=== PATIENT | male | born 1965 | race Asian ===

== ENCOUNTER 2017-05-22 22:28 | Emergency (ER) | payer OTHER ==
[2017-05-23 00:39] LABS: ABS Basophils 0 10^3/ul (0-0.2); ABS Eosinophils 0 10^3/ul (0-0.6); ABS Lymphocytes 0.7 10^3/ul (1.0-4.8); ABS Monocytes 0.1 10^3/ul (0-0.8); ABS Neutrophils 7.5 10^3/ul (1.5-7.7); ABS Nucleated RBC 0 10^3/ul; Eosinophil % 0 % (0-6); Hematocrit 38 % (42-52); Lymphocyte % 8.7 % (25-47); Mean Corpuscular HGB Conc 34 g/dl (31-36); Mean Corpuscular Hemoglobin 30 pg (27-31); Mean Corpuscular Volume 89 fL (80-94); Mean Platelet Volume 10 um3 (7.4-10.4); Nucleated Red Blood Cells % 0.1; Platelet Count 291 10^3/ul (150-450); Red Blood Count 4.29 10^6/ul (4.0-5.4); Red Cell Distribution Width 14 % (10.5-15); White Blood Count 8.4 10^3/ul (3.5-10.8)
[2017-05-23 00:45] LABS: EGFR Non-African American 72.7 (>60)
[2017-05-23] MEDS: Metoclopramide IV* 5 MG/ML 2 ML VIAL IV SLOW PU ONE (00:50)
[2017-05-23] MEDS: diPHENhydraMINE IV* 50 MG/ML 1 ml VIAL (BENADRYL) SLOW PUSH ONE (00:50)
[2017-05-23] MEDS: NS 0.9% 1000 ML* 2,000 ML IV ONE (00:50)
[2017-05-23] MEDS: Acetaminophen TAB* 325 MG PO ONE (01:20)
[2017-05-23] MEDS: Ondansetron INJ* 2 MG/ML VIAL IV ONE (02:45)
[2017-05-23 04:33] VITALS: BP 127/75
--- NOTE | 2017-05-23 04:47 | ED ---
Benjy Leiva Stephanie, scribed for Karlie Bunn MD on 05/23/17 at 0014 . Abdominal Pain/Male - HPI Summary HPI Summary: The pt is a 51 y/o M presenting to the ED with abd pain that began at 13:00 today. Symptoms include N/V/D, RUBIO and chills. The pt denies fever. - History of Current Complaint Chief Complaint: EDNauseaVomitDiarrh Stated Complaint: FLU LIKE SYMPTOMS Time Seen by Provider: 05/22/17 23:51 Hx Obtained From: Patient Onset/Duration: Gradual Onset, Lasting Hours - 11, Still Present Timing: Constant Severity Currently: Severe Pain Intensity: 8 Pain Scale Used: 0-10 Numeric Location: Diffuse Radiates: No Aggravating Factor(s): Nothing Alleviating Factor(s): Nothing Associated Signs And Symptoms: Negative: Fever, Nausea, Vomiting - Allergies/Home Medications Allergies/Adverse Reactions: Allergies Allergy/AdvReac Type Severity Reaction Status Date / Time No Known Allergies Allergy Verified 05/22/17 22:36 PMH/Surg Hx/FS Hx/Imm Hx Endocrine/Hematology History: Reports: Hx Anemia Denies: Hx Diabetes Cardiovascular History: Denies: Hx Congestive Heart Failure GI History: Reports: Hx Gall Bladder Disease, Hx Gastroesophageal Reflux Disease , Other GI Disorders - pancreatitis Musculoskeletal History: Reports: Hx Back Problems - chronic low back pain, Hx Orthopedic Injury - left shoulder injury Psychiatric History: Reports: Hx Depression - Surgical History Surgery Procedure, Year, and Place: None - Immunization History Date of Tetanus Vaccine: 09/15/2013 Infectious Disease History: No Infectious Disease History: Denies: Traveled Outside the [place] in Last 30 Days - Family History Known Family History: Positive: Unknown - Pt denies - Social History Occupation: Unemployed Lives: With Family Alcohol Use: Weekly Substance Use Type: Reports: Prescribed Substance Use Comment - Amount & Last Used: oxycontin 10mg bid Smoking Status (MU): Never Smoked Tobacco Review of Systems Positive: Chills Positive: Abdominal Pain, Vomiting, Diarrhea, Nausea Positive: Headache All Other Systems Reviewed And Are Negative: Yes Physical Exam - Summary Physical Exam Summary: VITAL SIGNS: Reviewed. GENERAL: Patient is a well-developed and nourished MALE who is lying comfortable in the stretcher. Patient is not in any acute respiratory distress. HEAD AND FACE: No signs of trauma. No ecchymosis, hematomas or skull depressions. No sinus tenderness. EYES: PERRLA, EOMI x 2, No injected conjunctiva, no nystagmus. EARS: Hearing grossly intact. Ear canals and tympanic membranes are within normal limits. MOUTH: Oropharynx within normal limits. NECK: Supple, trachea is midline, no adenopathy, no JVD, no carotid bruit, no c- spine tenderness, neck with full ROM. CHEST: Symmetric, no tenderness at palpation LUNGS: Clear to auscultation bilaterally. No wheezing or crackles. CVS: Regular rate and rhythm, S1 and S2 present, no murmurs or gallops appreciated. ABDOMEN: Soft, non-tender. No signs of distention. No rebound no guarding, and no masses palpated. Bowel sounds are normal. EXTREMITIES: FROM in all major joints, no edema, no cyanosis or clubbing. NEURO: Alert and oriented x 3. No acute neurological deficits. Speech is normal and follows commands. SKIN: Dry and warm Triage Information Reviewed: Yes Vital Signs On Initial Exam: Initial Vitals Temp Pulse Resp BP Pulse Ox 98.2 F 125 20 117/61 97 05/22/17 22:33 05/22/17 22:33 05/22/17 22:33 05/22/17 22:33 05/22/17 22:33 Vital Signs Reviewed: Yes Diagnostics - Vital Signs Vital Signs Temp Pulse Resp BP Pulse Ox 05/22/17 22:33 98.2 F 125 20 117/61 97 - Laboratory Lab Results: Lab Results 05/22/17 Range/Units 23:15 Influenza A (Rapid) Negative (Negative) Influenza B (Rapid) Negative (Negative) Result Diagrams: 05/23/17 00:20 05/23/17 00:20 Lab Statement: Any lab studies that have been ordered have been reviewed, and results considered in the medical decision making process. Abdominal Pain Fem Course/Dx - Course Course Of Treatment: he pt is a 51 y/o M presenting to the ED with abd pain that began at 13:00 today. Symptoms include N/V/D, RUBIO and chills. The pt denies fever. The pt has gastroenteritis and will be discharged home. - Diagnoses Provider Diagnoses: Gastroenteritis Discharge - Discharge Plan Condition: Stable Disposition: HOME Prescriptions: Ondansetron [Zofran Odt] 8 mg PO Q6HR PRN #20 tab.rapdis PRN Reason: Nausea/Vomiting Patient Education Materials: Gastroenteritis (ED) Referrals: Peter Lee MD [Primary Care Provider] - 3 Days Additional Instructions: RETURN TO EMERGENCY DEPARTMENT FOR ANY NEW OR WORSENING SYMPTOMS The documentation as recorded by the Benjy hu Stephanie accurately reflects the service I personally performed and the decisions made by me, Karlie Bunn MD.
== END 2017-05-23 04:33 | disposition home or self-care (01) ==
LOC: ED 22:28
DX: K52.9 Noninfective gastroenteritis and colitis, unspecified (principal)
CPT/HCPCS: 36415; 80053; 83735; 85025; 86140; 87502; 96361; 96374; 96375; 99283; A9270-GY; J1200; J2405; J2765

== ENCOUNTER 2017-10-04 14:57 | Emergency (ER) | payer OTHER ==
[2017-10-04] MEDS ORDERED: Pantoprazole IV* 40 MG IV ONE (15:13)
[2017-10-04] MEDS ORDERED: NS 0.9% 1000 ML* 1,000 ML IV ONE (15:13)
[2017-10-04] MEDS ORDERED: Ondansetron INJ* 2 MG/ML VIAL IV ONE ×2 (15:13→19:46)
[2017-10-04 16:10] LABS: ABS Basophils 0 10^3/ul (0-0.2); ABS Eosinophils 0 10^3/ul (0-0.6); ABS Lymphocytes 0.8 10^3/ul (1.0-4.8); ABS Monocytes 0.2 10^3/ul (0-0.8); ABS Neutrophils 6.5 10^3/ul (1.5-7.7); ABS Nucleated RBC 0 10^3/ul; Eosinophil % 0.1 % (0-6); Hematocrit 38 % (42-52); Hemoglobin 12.6 g/dl (14.0-18.0); Lymphocyte % 11.1 % (25-47); Mean Corpuscular HGB Conc 34 g/dl (31-36); Mean Corpuscular Hemoglobin 30 pg (27-31); Mean Corpuscular Volume 89 fL (80-94); Mean Platelet Volume 9.6 um3 (7.4-10.4); Nucleated Red Blood Cells % 0.1; Platelet Count 261 10^3/ul (150-450); Red Cell Distribution Width 15 % (10.5-15); White Blood Count 7.5 10^3/ul (3.5-10.8)
[2017-10-04 16:19] LABS: EGFR Non-African American 73.2 (>60)
[2017-10-04] MEDS ORDERED: Ketorolac INJ* 30 MG/ML 1 ML VIAL IV PUSH ONE (16:39)
[2017-10-04 16:47] LABS: Urine Appearance Cloudy; Urine Blood Negative (Negative); Urine Color Yellow; Urine Ketones 1+ (Negative); Urine Protein 2+(100 mg/dL) (Negative); Urine Specific Gravity 1.029 (1.010-1.030); Urine Urobilinogen Negative (Negative)
[2017-10-04] MEDS ORDERED: Metoclopramide IV* 5 MG/ML 2 ML VIAL IV ONE (17:34)
[2017-10-04] MEDS ORDERED: LORazepam INJ* 2 MG/ML 1 ML VIAL IV ONE (17:34)
[2017-10-04] MEDS ORDERED: HYDROmorphone INJ* 2 MG/ML CARPUJECT SYRINGE IV SLOW PU ONE (19:45)
--- NOTE | 2017-10-04 20:19 | RAD ---
Indication: Epigastric pain. Real-time sonography of the right upper quadrant was. The liver measures 16.0 cm in length. No focal lesions or intrahepatic ductal dilatation is noted. The gallbladder demonstrates no gallstones, pericholecystic fluid or wall thickening. The common duct is not identified. The right kidney measures 11.7 x 6.3 x 5.6 cm with no hydronephrosis. The pancreas is obscured. IMPRESSION: No cholelithiasis. Common duct is not visualized although a dilated common duct is not present. Pancreas limited in evaluation.
[2017-10-04] MEDS ORDERED: Buprenorphine/Naloxone 8-2 MG SL TAB* 1 TAB PO ONE (21:01)
--- NOTE | 2017-10-04 22:36 | ED ---
Lencho Leiva Natalie, scribed for Mike Ellsworth MD on 10/04/17 at 1526 . Abdominal Pain/Male - HPI Summary HPI Summary: The patient is a 52 y/o M presenting to [facility] c/o epigastric pain brought on by nausea, vomiting, and loose diarrhea that started at 11:30 this morning and has been worsening since. The pt describes the pain as dull and achy all over, and he rates it 8/10 in severity. He additionally c/o headache, chills, hot flashes , and a dehydrated feeling. He has taken Advil BOILER WELDER, which he reports has aggravated the pain. He has hx of similar symptoms approximately 6 months ago. The pt denies surgical history to abd, but has had ACL surgery in the past. The pt has a hx of opioid and EToH abuse so he is currently on Suboxone therapy. - History of Current Complaint Chief Complaint: EDNauseaVomitDiarrh Stated Complaint: ABD PAIN/NAUSEA Time Seen by Provider: 10/04/17 15:06 Hx Obtained From: Patient Onset/Duration: Sudden Onset, Lasting Hours - 3 hours ago, Still Present, Worse Since - onset Timing: Constant, Lasting Hours Severity Initially: Moderate Severity Currently: Severe Pain Intensity: 8 Pain Scale Used: 0-10 Numeric Location: Epigastric Radiates: No Character: Dull, Other: - achy Aggravating Factor(s): Other: - Advil Alleviating Factor(s): Nothing Associated Signs And Symptoms: Positive: Nausea, Vomiting, Diarrhea, Other - headache, dehydrated, chills, hot flashes - Allergies/Home Medications Allergies/Adverse Reactions: Allergies Allergy/AdvReac Type Severity Reaction Status Date / Time No Known Allergies Allergy Verified 05/22/17 22:36 PMH/Surg Hx/FS Hx/Imm Hx Endocrine/Hematology History: Reports: Hx Anemia Denies: Hx Diabetes Cardiovascular History: Denies: Hx Congestive Heart Failure, Hx Hypertension, Hx Pacemaker/ICD Respiratory History: Denies: Hx Asthma GI History: Reports: Hx Gall Bladder Disease, Hx Gastroesophageal Reflux Disease , Other GI Disorders - pancreatitis Musculoskeletal History: Reports: Hx Back Problems - chronic low back pain, Hx Orthopedic Injury - left shoulder injury Sensory History: Denies: Hx Hearing Aid Psychiatric History: Reports: Hx Depression Denies: Hx Panic Disorder - Surgical History Surgery Procedure, Year, and Place: ACL REPAIR RT KNEE - Immunization History Date of Tetanus Vaccine: 09/15/2013 Infectious Disease History: No Infectious Disease History: Denies: Traveled Outside the [place] in Last 30 Days - Family History Known Family History: Negative: Hypertension - Social History Alcohol Use: Weekly Substance Use Type: Reports: Prescribed Substance Use Comment - Amount & Last Used: oxycontin 10mg bid Smoking Status (MU): Never Smoked Tobacco Review of Systems Positive: Chills, Other - hot flashes, dehydrated Positive: Abdominal Pain, Vomiting, Diarrhea, Nausea Positive: Headache All Other Systems Reviewed And Are Negative: Yes Physical Exam - Summary Physical Exam Summary: Appearance: The patient is well-nourished in mild distress and in moderate pain. Skin: The skin is warm and dry and skin color reflects adequate perfusion. HEENT: The head is normocephalic and atraumatic. The pupils are equal and reactive. The conjunctivae are clear and without drainage. Nares are patent and without drainage. Mouth reveals moist mucous membranes and the throat is without erythema and exudate. The external ears are intact. The ear canals are patent and without drainage. The tympanic membranes are intact. Neck: The neck is supple with full range of motion and non-tender. There are no carotid bruits. There is no neck vein distension. Respiratory: Chest is non-tender. Lungs are clear to auscultation and breath sounds are symmetrical and equal. Cardiovascular: Heart is regular rate and rhythm. There is no murmur or rub auscultated. There is no peripheral edema and pulses are symmetrical and equal. Abdomen: The abdomen is soft and tender in the epigastric region. There are normal bowel sounds heard in all four quadrants and there is no organomegaly palpated. Musculoskeletal: There is no back tenderness noted. Extremities are non-tender with full range of motion. There is good capillary refill. There is no peripheral edema or calf tenderness elicited. Neurological: Patient is alert and oriented to person, place and time. The patient has symmetrical motor strength in all four extremities. Cranial nerves are grossly intact. Deep tendon reflexes are symmetrical and equal in all four extremities. Psychiatric: The patient has an appropriate affect and does not exhibit any anxiety or depression. Triage Information Reviewed: Yes Vital Signs On Initial Exam: Initial Vitals Temp Pulse Resp BP Pulse Ox 97 F 48 22 106/90 100 10/04/17 14:59 10/04/17 14:59 10/04/17 14:59 10/04/17 14:59 10/04/17 14:59 Vital Signs Reviewed: Yes Diagnostics - Vital Signs Vital Signs Temp Pulse Resp BP Pulse Ox 10/04/17 14:59 97 F 48 22 106/90 100 - Laboratory Lab Results: Lab Results 10/04/17 10/04/17 10/04/17 Range/Units 15:42 15:42 15:42 WBC 7.5 (3.5-10.8) 10^3/ul RBC 4.20 (4.00-5.40) 10^6/ul Hgb 12.6 L (14.0-18.0) g/dl Hct 38 L (42-52) % MCV 89 (80-94) fL MCH 30 (27-31) pg MCHC 34 (31-36) g/dl RDW 15 (10.5-15) % Plt Count 261 (150-450) 10^3/ul MPV 9.6 (7.4-10.4) um3 Neut % (Auto) 86.4 H (38-83) % Lymph % (Auto) 11.1 L (25-47) % Mcdonald % (Auto) 2.3 (0-7) % Eos % (Auto) 0.1 (0-6) % Baso % (Auto) 0.1 (0-2) % Absolute Neuts (auto) 6.5 (1.5-7.7) 10^3/ul Absolute Lymphs (auto) 0.8 L (1.0-4.8) 10^3/ul Absolute Monos (auto) 0.2 (0-0.8) 10^3/ul Absolute Eos (auto) 0 (0-0.6) 10^3/ul Absolute Basos (auto) 0 (0-0.2) 10^3/ul Absolute Nucleated RBC 0 10^3/ul Nucleated RBC % 0.1 Sodium 141 (135-145) mmol/L Potassium 3.3 L (3.5-5.0) mmol/L Chloride 108 (101-111) mmol/L Carbon Dioxide 24 (22-32) mmol/L Anion Gap 9 (2-11) mmol/L BUN 15 (6-24) mg/dL Creatinine 1.07 (0.67-1.17) mg/dL Est GFR ( Amer) 88.5 (>60) Est GFR (Non-Af Amer) 73.2 (>60) BUN/Creatinine Ratio 14.0 (8-20) Glucose 133 H (70-100) mg/dL Lactic Acid 2.1 H* (0.5-2.0) mmol/L Calcium 9.0 (8.6-10.3) mg/dL Total Bilirubin 0.50 (0.2-1.0) mg/dL AST 13 (13-39) U/L ALT 12 (7-52) U/L Alkaline Phosphatase 23 L (34-104) U/L C-Reactive Protein < 1.00 (<8.01) mg/L Total Protein 6.6 (6.4-8.9) g/dL Albumin 4.0 (3.2-5.2) g/dL Globulin 2.6 (2-4) g/dL Albumin/Globulin Ratio 1.5 (1-3) Lipase 35 (11.0-82.0) U/L Urine Color Urine Appearance Urine pH (5-9) Ur Specific [place] (1.010-1.030) Urine Protein (Negative) Urine Ketones (Negative) Urine Blood (Negative) Urine Nitrate (Negative) Urine Bilirubin (Negative) Urine Urobilinogen (Negative) Ur Leukocyte Esterase (Negative) Urine WBC (Auto) (Absent) Urine RBC (Auto) (Absent) Urine Bacteria (Absent) Urine Yeast (Absent) Urine Glucose (Negative) 10/04/ Range/Units 16:32 WBC (3.5-10.8) 10^3/ul RBC (4.00-5.40) 10^6/ul Hgb (14.0-18.0) g/dl Hct (42-52) % MCV (80-94) fL MCH (27-31) pg MCHC (31-36) g/dl RDW (10.5-15) % Plt Count (150-450) 10^3/ul MPV (7.4-10.4) um3 Neut % (Auto) (38-83) % Lymph % (Auto) (25-47) % Mcdonald % (Auto) (0-7) % Eos % (Auto) (0-6) % Baso % (Auto) (0-2) % Absolute Neuts (auto) (1.5-7.7) 10^3/ul Absolute Lymphs (auto) (1.0-4.8) 10^3/ul Absolute Monos (auto) (0-0.8) 10^3/ul Absolute Eos (auto) (0-0.6) 10^3/ul Absolute Basos (auto) (0-0.2) 10^3/ul Absolute Nucleated RBC 10^3/ul Nucleated RBC % Sodium (135-145) mmol/L Potassium (3.5-5.0) mmol/L Chloride (101-111) mmol/L Carbon Dioxide (22-32) mmol/L Anion Gap (2-11) mmol/L BUN (6-24) mg/dL Creatinine (0.67-1.17) mg/dL Est GFR ( Amer) (>60) Est GFR (Non-Af Amer) (>60) BUN/Creatinine Ratio (8-20) Glucose (70-100) mg/dL Lactic Acid (0.5-2.0) mmol/L Calcium (8.6-10.3) mg/dL Total Bilirubin (0.2-1.0) mg/dL AST (13-39) U/L ALT (7-52) U/L Alkaline Phosphatase (34-104) U/L C-Reactive Protein (<8.01) mg/L Total Protein (6.4-8.9) g/dL Albumin (3.2-5.2) g/dL Globulin (2-4) g/dL Albumin/Globulin Ratio (1-3) Lipase (11.0-82.0) U/L Urine Color Yellow Urine Appearance Cloudy Urine pH 8.0 (5-9) Ur Specific [place] 1.029 (1.010-1.030) Urine Protein 2+(100 mg/dl) A (Negative) Urine Ketones 1+ A (Negative) Urine Blood Negative (Negative) Urine Nitrate Negative (Negative) Urine Bilirubin Negative (Negative) Urine Urobilinogen Negative (Negative) Ur Leukocyte Esterase Negative (Negative) Urine WBC (Auto) Absent (Absent) Urine RBC (Auto) Absent (Absent) Urine Bacteria Absent (Absent) Urine Yeast Present A (Absent) Urine Glucose Negative (Negative) Result Diagrams: 10/04/17 15:42 06/30/18 15:42 Lab Statement: Any lab studies that have been ordered have been reviewed, and results considered in the medical decision making process. - Ultrasound No standard instances Ultrasound Interpretation: Positive (See Comments) - Gallbladder US: No cholelithiasis. Common duct is not visualized although a dilated common duct is not present. Pancreas limited in evaluation. ED physician has reviewed this report. Ultrasound Interpretation Completed By: Radiologist Re-Evaluation - Re-Evaluation First Eval Re-Evaluation Time: 17:30 Change: Unchanged Comment: The pt is still in pain and is naseous with vomiting. Second Eval Re-Evaluation Time: 20:00 Change: Unchanged Comment: I spoke with the pt about US results. Abdominal Pain Fem Course/Dx - Course Course Of Treatment: Mr. Rod presented to the emergency department complaining of nausea vomiting diarrhea and epigastric pain he has presented this way in the past and his family reported that his diagnosis had been pancreatitis. His laboratory work here was within normal limits and a review of his past laboratory work was also within normal limits. He also has has had imaging studies in the past which did not show pancreatitis. He continued to complain of not feeling well here in the emergency department although he did improve with some Ativan. He takes Suboxone 4 mg 3 times a day and has only had 4 mg today therefore he was given another 8 mg. I'm not sure of the diagnosis although my suspicion is that he may be an undiagnosed cyclic vomiting syndrome patient. He saw stable at this point but is still feeling ill and is sleeping at this point discharge has been written for him with the intention that when he awakens he will feel improved. - Diagnoses Provider Diagnoses: Abdominal pain, Gastroenteritis Discharge - Sign-Out/Discharge Documenting (check all that apply): Discharge/Admit/Transfer - Pt will be discharged home. - Discharge Plan Condition: Stable Disposition: HOME Patient Education Materials: Gastroenteritis (ED), Abdominal Pain (ED) Referrals: Peter Lee MD [Primary Care Provider] - 2 Days Additional Instructions: Follow up with your primary care provider in 2-3 days. Return to the emergency department for any new or worsening symptoms. - Billing Disposition and Condition Condition: STABLE Disposition: Home The documentation as recorded by the Lencho hu Natalie accurately reflects the service I personally performed and the decisions made by me, Mike Ellsworth MD.
[2017-10-04 23:43] VITALS: BP 123/74
== END 2017-10-04 23:20 | disposition home or self-care (01) ==
LOC: ED 14:57
DX: K52.9 Noninfective gastroenteritis and colitis, unspecified (principal); R10.13 Epigastric pain
CPT/HCPCS: 36415; 76705; 80053; 81003; 81015; 83605; 83690; 85025; 86140; 87086; 96360; 96374; 96375; 99283; A9270-GY; J1885; J2060; J2405; J2765

== ENCOUNTER 2017-10-22 03:38 | Emergency (ER) | payer OTHER ==
[2017-10-22] MEDS ORDERED: NS 0.9% 1000 ML* 1,000 ML IV ONE ×2 (03:58→06:17)
[2017-10-22] MEDS ORDERED: Ondansetron INJ* 2 MG/ML VIAL IV ONE (03:58)
[2017-10-22 04:28] LABS: ABS Basophils 0 10^3/ul (0-0.2); ABS Eosinophils 0 10^3/ul (0-0.6); ABS Lymphocytes 1.6 10^3/ul (1.0-4.8); ABS Monocytes 0.3 10^3/ul (0-0.8); ABS Neutrophils 6.8 10^3/ul (1.5-7.7); ABS Nucleated RBC 0 10^3/ul; Eosinophil % 0.3 % (0-6); Hematocrit 39 % (42-52); Hemoglobin 13.2 g/dl (14.0-18.0); Lymphocyte % 18.1 % (25-47); Mean Corpuscular HGB Conc 34 g/dl (31-36); Mean Corpuscular Hemoglobin 30 pg (27-31); Mean Corpuscular Volume 89 fL (80-94); Mean Platelet Volume 8.5 um3 (7.4-10.4); Nucleated Red Blood Cells % 0; Platelet Count 329 10^3/ul (150-450); Red Blood Count 4.36 10^6/ul (4.00-5.40); Red Cell Distribution Width 15 % (10.5-15); White Blood Count 8.7 10^3/ul (3.5-10.8)
[2017-10-22] MEDS ORDERED: diPHENhydraMINE IV* 25 MG in NS 0.9% 50 ML* 50 ML IVPB ONE (04:34)
[2017-10-22] MEDS ORDERED: Metoclopramide IV* 5 MG/ML 2 ML VIAL IV ONE (04:34)
[2017-10-22 04:43] LABS: EGFR Non-African American 76.4 (>60)
[2017-10-22] MEDS ORDERED: Acetaminophen TAB* 325 MG PO ONE (06:23)
[2017-10-22] MEDS ORDERED: Potassium Chlor TAB* 20 MEQ TAB.ER PO ONE (06:23)
--- NOTE | 2017-10-22 06:23 | ED ---
Complex/Multi-Sys Presentation - HPI Summary HPI Summary: This is fritz Masters documenting for attending Dr. Heather Weems MD. A 52 y/o male presents to the ED c/o nausea, vomiting and headache. Additionally c/o abdominal pain in epigastric region. According to the patient, he had one beer when his symptoms began. He doesn't know why his symptoms began , "It just happened". As per triage, "pt here with c/o headache, nausea and vomiting x 5 hours. pt denies recent travel, also has some abd discomfort, had beer tonight". Pt denies any fall or diarrhea. He stated that he has been in the [facility] ED for the same symptoms, but they were not brought on after drinking ETOH (beer). Upon enter the room, the patient was uncomfortable in stretcher and drying heaving. He noted that he has medication at home for vomiting. No PMHx of DM, HBP and cholecystectomy. No known medical conditions. No known allergies to medications. - History Of Current Complaint Chief Complaint: EDNauseaVomitDiarrh Time Seen by Provider: 10/22/17 03:55 Hx Obtained From: Patient Onset/Duration: Sudden Onset, Lasting Hours, Still Present Timing: Constant Aggravating Factor(s): NOTHING Alleviating Factor(s): NOTHING Associated Signs And Symptoms: Positive: Headache, Nausea, Vomiting, Abdominal Pain - Allergies/Home Medications Allergies/Adverse Reactions: Allergies Allergy/AdvReac Type Severity Reaction Status Date / Time No Known Allergies Allergy Verified 10/22/17 07:46 Home Medications: Home Medications Buprenorphine HCl/Naloxone HCl [Buprenorp-Nalox 8-2 mg Sl Film] 1 each SL TID [History Confirmed 10/22/17] Buprenorphine/Naloxone SL TAB* [Suboxone 8-2 mg SL TAB*] 1 tab.sl SL DAILY 10/22 [History Confirmed 10/22/17] Calcium No.1/D3/B6/FA/B12/Aloe [D 1000 Plus Aloe] 1 tab PO DAILY 10/22/17 [ History Confirmed 10/22/17] Gabapentin CAP(*) [Neurontin 300 CAP(*)] 300 mg PO TID 10/22/17 [History Confirmed 10/22/17] PMH/Surg Hx/FS Hx/Imm Hx Endocrine/Hematology History: Reports: Hx Anemia Denies: Hx Diabetes Cardiovascular History: Denies: Hx Congestive Heart Failure, Hx Hypertension, Hx Pacemaker/ICD Respiratory History: Denies: Hx Asthma GI History: Reports: Hx Gall Bladder Disease, Hx Gastroesophageal Reflux Disease , Other GI Disorders - pancreatitis Musculoskeletal History: Reports: Hx Back Problems - chronic low back pain, Hx Orthopedic Injury - left shoulder injury Sensory History: Denies: Hx Hearing Aid Psychiatric History: Reports: Hx Depression Denies: Hx Panic Disorder - Surgical History Surgery Procedure, Year, and Place: ACL REPAIR RT KNEE - Immunization History Date of Tetanus Vaccine: 09/15/2013 Infectious Disease History: No Infectious Disease History: Denies: Traveled Outside the [place] in Last 30 Days - Family History Known Family History: Negative: Hypertension - Social History Alcohol Use: Weekly Substance Use Type: Reports: Marijuana, Prescribed Substance Use Comment - Amount & Last Used: oxycontin 10mg bid; suboxen Smoking Status (MU): Never Smoked Tobacco Review of Systems Positive: Other. Negative: Fever Positive: Abdominal Pain, Vomiting, Nausea. Negative: Diarrhea Positive: Headache All Other Systems Reviewed And Are Negative: Yes Physical Exam - Summary Physical Exam Summary: GENERAL: Patient is a well developed and nourished male who is actively dry heaving. Patient is not in any acute respiratory distress. HEAD AND FACE: Normocephalic EYES: PERRLA, EOMI x 2. EARS: Hearing grossly intact. MOUTH: Oropharynx within normal limits. NECK: Supple, trachea is midline, no adenopathy, no JVD, no carotid bruit. CHEST: Symmetric, no tenderness at palpation LUNGS: Clear to auscultation bilaterally. No wheezing or crackles. CVS: Regular rate and rhythm, S1 and S2 present, no murmurs or gallops appreciated. ABDOMEN: Soft, non-tender. Bowel sounds are normal. No abdominal abnormal pulsations. EXTREMITIES: Full ROM in all major joints, no edema, no cyanosis or clubbing. NEURO: Alert and oriented x 3. No acute neurological deficits. Speech is normal and follows commands. SKIN: Dry and warm Triage Information Reviewed: Yes Vital Signs On Initial Exam: Initial Vitals Temp Pulse Resp BP Pulse Ox 97.8 F 83 16 118/51 96 10/22/17 03:40 10/22/17 03:40 10/22/17 03:40 10/22/17 03:40 10/22/17 03:40 Vital Signs Reviewed: Yes Diagnostics - Vital Signs Vital Signs Temp Pulse Resp BP Pulse Ox 10/22/17 03:40 97.8 F 83 16 118/51 96 - Laboratory Lab Results: Lab Results 10/22/17 10/22/17 10/22/17 Range/Units 04:15 04:15 04:15 WBC 8.7 (3.5-10.8) 10^3/ul RBC 4.36 (4.00-5.40) 10^6/ul Hgb 13.2 L (14.0-18.0) g/dl Hct 39 L (42-52) % MCV 89 (80-94) fL MCH 30 (27-31) pg MCHC 34 (31-36) g/dl RDW 15 (10.5-15) % Plt Count 329 (150-450) 10^3/ul MPV 8.5 (7.4-10.4) um3 Neut % (Auto) 77.7 (38-83) % Lymph % (Auto) 18.1 L (25-47) % [place] % (Auto) 3.6 (0-7) % Eos % (Auto) 0.3 (0-6) % Baso % (Auto) 0.3 (0-2) % Absolute Neuts (auto) 6.8 (1.5-7.7) 10^3/ul Absolute Lymphs (auto) 1.6 (1.0-4.8) 10^3/ul Absolute Monos (auto) 0.3 (0-0.8) 10^3/ul Absolute Eos (auto) 0 (0-0.6) 10^3/ul Absolute Basos (auto) 0 (0-0.2) 10^3/ul Absolute Nucleated RBC 0 10^3/ul Nucleated RBC % 0 Sodium 140 (135-145) mmol/L Potassium 3.0 L (3.5-5.0) mmol/L Chloride 104 (101-111) mmol/L Carbon Dioxide 26 (22-32) mmol/L Anion Gap 10 (2-11) mmol/L BUN 10 (6-24) mg/dL Creatinine 1.03 (0.67-1.17) mg/dL Est GFR ( Amer) 92.5 (>60) Est GFR (Non-Af Amer) 76.4 (>60) BUN/Creatinine Ratio 9.7 (8-20) Glucose 109 H (70-100) mg/dL Lactic Acid 2.6 H* (0.5-2.0) mmol/L Calcium 9.1 (8.6-10.3) mg/dL Total Bilirubin 0.90 (0.2-1.0) mg/dL AST 31 (13-39) U/L ALT 30 (7-52) U/L Alkaline Phosphatase 26 L (34-104) U/L C-React Prot High Sens 0.58 (<2.00) mg/L Total Protein 7.2 (6.4-8.9) g/dL Albumin 4.4 (3.2-5.2) g/dL Globulin 2.8 (2-4) g/dL Albumin/Globulin Ratio 1.6 (1-3) Lipase 47 (11.0-82.0) U/L Serum Alcohol 53 H (<10) mg/dL Result Diagrams: 10/22/17 04:15 10/22/17 04:15 Lab Statement: Any lab studies that have been ordered have been reviewed, and results considered in the medical decision making process. Complex Multi-Symp Course/Dx Course Of Treatment: A 52 y/o male presents to the ED c/o nausea, vomiting and headache. Additionally c/o abdominal pain in epigastric region. According to the patient, he had one beer when his symptoms began. Laboratory review is unremarkable for a lactic acid of 2.6 and a potassium of 3 UDS Positive for marijuana. In the ED course, the patient recieved Tylenol, Reglan, Klor Con Er Tab, Zofran, Diphrenhydramine and IV fluids. Patient will be discharged with a diagnosis of nausea and vomiting. Patient is to follow up with PCP in 2-3 days. Pt is agreeable with this plan. - Diagnoses Provider Diagnoses: Nausea & vomiting Discharge - Sign-Out/Discharge Documenting (check all that apply): Patient Departure - DISCHARGE - Discharge Plan Condition: Stable Disposition: HOME Prescriptions: Ondansetron [Zofran Odt] 4 mg PO TID PRN #12 tab.rapdis PRN Reason: Nausea/Vomiting Patient Education Materials: Acute Nausea and Vomiting (ED) Referrals: Peter Lee MD [Primary Care Provider] - 2 Days (FOLLOW UP WITH PRIMARY CARE PHYSICIAN IN 2-3 DAYS.) Additional Instructions: RETURN TO ED FOR ANY NEW OR WORSENING SYMPTOMS. - Billing Disposition and Condition Condition: STABLE Disposition: Home
[2017-10-22 07:18] VITALS: BP 134/93
== END 2017-10-22 07:16 | disposition home or self-care (01) ==
LOC: ED 03:38
DX: R11.2 Nausea with vomiting, unspecified (principal); R51 Headache; R10.13 Epigastric pain
CPT/HCPCS: 36415; 80053; 80307; 80320; 83605; 83690; 85025; 86141; 96374; 96375; 99284; A9270-GY; G0480; J1200; J2405; J2765

== ENCOUNTER 2017-10-22 07:20 | Emergency (ER) | payer OTHER ==
[2017-10-22] MEDS ORDERED: LORazepam INJ* 2 MG/ML 1 ML VIAL IV PUSH ONE (08:23)
[2017-10-22] MEDS ORDERED: Buprenorphine/Naloxone 8-2 MG SL TAB* 1 TAB PO ONE (08:24)
--- NOTE | 2017-10-22 09:10 | ED ---
GI/ HPI - HPI Summary HPI Summary: Pt here w/ cyclical vomiting - was just seen by Dr. Weems a few hours ago and given reglan, zofran and benadryl - reports nausea resolved but before he could get more anti-nausea med from pharmacy upon d/c, he started vomiting again. Reports he developed RUBIO, nausea w/ vomiting and diffuse ab discomfort at 23:00 last night. Last ate at 19:00 - denies pain w/ eating. Reports he takes suboxone 8mg daily but didn't take this yesterday or today. He admits to smoking marijuana which helps nausea as he's had 4 episodes of cyclical vomiting since September 2017 (last time he was here) - has not had f/u yet but is scheduled to see PCP this week. Reports he last smoked marijuana 3 weeks ago. Pt admits warmth helps sx. He is agitated and reports chills, restlessness and nausea to the point where he sometimes induces vomiting himself as he thinks this will make him feel better. Does not feel he's withdrawing from suboxone but can't say for sure. Admits to some loose stools but states these are not concerning as he has them intermittently. He reports a h/o pancreatitis but labs appear to be normal in this regard from just being seen within the past few hours and he states this does not feel the same. Urinating well. - History of Current Complaint Chief Complaint: EDNauseaVomitDiarrh Time Seen by Provider: 10/22/17 07:48 Stated Complaint: VOMITING/HEADACHE Hx Obtained From: Patient Pain Intensity: 0 - Allergy/Home Medications Allergies/Adverse Reactions: Allergies Allergy/AdvReac Type Severity Reaction Status Date / Time No Known Allergies Allergy Verified 10/22/17 07:46 PMH/Surg Hx/FS Hx/Imm Hx Previously Healthy: Yes Endocrine/Hematology History: Reports: Hx Anemia Denies: Hx Diabetes Cardiovascular History: Denies: Hx Congestive Heart Failure, Hx Hypertension, Hx Pacemaker/ICD Respiratory History: Denies: Hx Asthma GI History: Reports: Hx Gall Bladder Disease, Hx Gastroesophageal Reflux Disease , Other GI Disorders - pancreatitis Musculoskeletal History: Reports: Hx Back Problems - chronic low back pain, Hx Orthopedic Injury - left shoulder injury Sensory History: Denies: Hx Hearing Aid Psychiatric History: Reports: Hx Depression Denies: Hx Panic Disorder - Surgical History Surgery Procedure, Year, and Place: ACL REPAIR RT KNEE - Immunization History Date of Tetanus Vaccine: 09/15/2013 Infectious Disease History: No Infectious Disease History: Denies: Traveled Outside the [place] in Last 30 Days - Family History Known Family History: Positive: None Negative: Hypertension - Social History Alcohol Use: Weekly Substance Use Type: Reports: Marijuana, Prescribed Substance Use Comment - Amount & Last Used: oxycontin 10mg bid; suboxone 4mg TID Hx Tobacco Use: No Smoking Status (MU): Never Smoked Tobacco Review of Systems Positive: Chills Eyes: Negative ENT: Negative Negative: Chest Pain Negative: Shortness Of Breath Positive: Abdominal Pain - diffuse discomfort, Vomiting, Diarrhea, Nausea Genitourinary: Negative Skin: Negative Positive: Headache Positive: Anxious All Other Systems Reviewed And Are Negative: Yes Physical Exam Triage Information Reviewed: Yes Vital Signs On Initial Exam: Initial Vitals Temp Pulse Resp BP Pulse Ox 97.9 F 80 16 102/81 99 10/22/17 07:34 10/22/17 07:34 10/22/17 07:34 10/22/17 07:34 10/22/17 07:34 Vital Signs Reviewed: Yes Appearance: Positive: Well-Nourished, Ill-Appearing - shivering in bed - has multiple blankets in place; anxious, perseverates on concern about nausea Skin: Positive: Warm, Skin Color Reflects Adequate Perfusion Head/Face: Positive: Normal Head/Face Inspection Eyes: Positive: Normal, EOMI, MARY, Conjunctiva Clear - anicteric sclera ENT: Positive: Normal ENT inspection, Hearing grossly normal. Negative: Trismus , Muffled voice, Hoarse voice Neck: Positive: Supple, Nontender Respiratory/Lung Sounds: Positive: Clear to Auscultation, Breath Sounds Present Cardiovascular: Positive: Normal, RRR, S1, S2 Abdomen Description: Positive: No Organomegaly, Soft, Other: - moving throughout exam however was able to illicit diffuse discomfort w/ palpation ( mild) - no focal area of tenderness, no rebounding. Negative: Guarding Bowel Sounds: Positive: Present Musculoskeletal: Positive: Normal, Strength/ROM Intact Neurological: Positive: Sensory/Motor Intact, Alert, Oriented to Person Place, Time, CN Intact II-III Psychiatric: Positive: Anxious Diagnostics - Vital Signs Vital Signs Temp Pulse Resp BP Pulse Ox 07/18/18 08:29 20 10/22/17 07:41 56 18 140/92 97 10/22/17 07:34 97.9 F 80 16 102/81 99 - Laboratory Lab Statement: Any lab studies that have been ordered have been reviewed, and results considered in the medical decision making process. Re-Evaluation - Re-Evaluation First Eval Change: Improved - less shivering/anxiety/excess moving about s/p ativan - appears comfortable and resting well GIGU Course/Dx - Course Course Of Treatment: anxiety, restlessness and nausea resolved w/ ativan - nursing reports he actually became calm after discussion about medications. Will monitor for alertness and he is resting after meds now. May be d/c'd pending waking. UPDATE: pt is alert now and requesting d/c. Reports nausea, ab discomfort and anxiety resolved. Mom will pick him up. Suspect suboxone withdrawal. Advised taking medication as directed and close f/u w/ PCP to discuss cyclical vomiting. Also important that he f/u w/ suboxone rx'er to see why he's missing doses, may need more support, etc - Diagnoses Provider Diagnoses: Nausea & vomiting, Agitation Discharge - Sign-Out/Discharge Documenting (check all that apply): Patient Departure - Discharge Plan Condition: Stable Disposition: HOME Patient Education Materials: Acute Nausea and Vomiting (ED) Referrals: Peter Lee MD [Primary Care Provider] - Additional Instructions: See previous discharge instructions - take medications as directed (zofran for nausea and home medications as prescribed, including suboxone) The definitive cause of your symptoms is not clear today - you may have cyclical vomiting syndrome or may have had withdrawal symptoms exacerbating vomiting symptoms Follow-up with PCP this week - call today to schedule. If symptoms persist, you may benefit from GI consult. Avoid marijuana and other substances such as alcohol, opioids, nicotine, caffeine, etc If you cannot hold down liquids for > 24 hours, return to the ED - Billing Disposition and Condition Condition: STABLE Disposition: Home
[2017-10-22 11:07] VITALS: BP 109/83
== END 2017-10-22 11:07 | disposition home or self-care (01) ==
LOC: ED 07:20
DX: R11.2 Nausea with vomiting, unspecified (principal); R45.1 Restlessness and agitation; R51 Headache
CPT/HCPCS: 96374; 99283; A9270-GY; J2060

== ENCOUNTER 2018-08-28 18:21 | Emergency (ER) | payer OTHER ==
[2018-08-28] MEDS ORDERED: NS 0.9% 1000 ML** 3,000 ML IV ONE (19:06)
[2018-08-28] MEDS ORDERED: Ondansetron INJ* 2 MG/ML VIAL IV ONE (19:07)
[2018-08-28] MEDS ORDERED: LORazepam INJ* 2 MG/ML 1 ML VIAL IV PUSH ONE (19:09)
[2018-08-28] MEDS ORDERED: Lorazepam PYXIS KEY PRN (19:09)
--- NOTE | 2018-08-28 19:13 | ED ---
Abdominal Pain/Male - HPI Summary HPI Summary: Pt is a 53 y/o M presenting to the ED with a chief complaint of nausea/ vomiting. He states he has hx of H. Pylori, and woke up this morning with nausea and vomiting that lasted all day. He also reports decreased appetite and and abdominal pain associated with the vomiting, as well as anxiety. Pt actively vomiting at bedside. As of 20:17, the pt states it's been about 2 months since his last attack, and that GERD usually triggers it. - History of Current Complaint Chief Complaint: EDNauseaVomitDiarrh Stated Complaint: NAUSEA, VOMITING PER PT Time Seen by Provider: 08/28/18 19:04 Hx Obtained From: Patient Onset/Duration: Sudden Onset, Lasting Hours, Still Present Timing: Constant, Lasting Hours Severity Initially: Moderate Severity Currently: Moderate Pain Intensity: 6 Pain Scale Used: 0-10 Numeric Location: Diffuse Radiates: No Aggravating Factor(s): Nothing Alleviating Factor(s): Nothing Associated Signs And Symptoms: Positive: Decreased Appetite, Nausea, Vomiting, Other - anxiety - Allergies/Home Medications Allergies/Adverse Reactions: Allergies Allergy/AdvReac Type Severity Reaction Status Date / Time No Known Allergies Allergy Verified 08/30/18 13:28 PMH/Surg Hx/FS Hx/Imm Hx Previously Healthy: Yes Endocrine/Hematology History: Reports: Hx Anemia Denies: Hx Diabetes Cardiovascular History: Denies: Hx Congestive Heart Failure, Hx Hypertension, Hx Pacemaker/ICD Respiratory History: Denies: Hx Asthma GI History: Reports: Hx Gall Bladder Disease, Hx Gastroesophageal Reflux Disease , Other GI Disorders - pancreatitis Musculoskeletal History: Reports: Hx Back Problems - chronic low back pain, Hx Orthopedic Injury - left shoulder injury Sensory History: Denies: Hx Hearing Aid Psychiatric History: Reports: Hx Depression Denies: Hx Panic Disorder - Surgical History Surgery Procedure, Year, and Place: ACL REPAIR RT KNEE - Immunization History Date of Tetanus Vaccine: 09/15/2013 Infectious Disease History: No Infectious Disease History: Denies: Traveled Outside the [place] in Last 30 Days - Family History Known Family History: Negative: Hypertension - Social History Alcohol Use: Weekly Hx Substance Use: Yes Substance Use Type: Reports: Marijuana, Prescribed Substance Use Comment - Amount & Last Used: oxycontin 10mg bid; suboxone 4mg TID Hx Tobacco Use: No Smoking Status (MU): Never Smoked Tobacco Review of Systems Positive: Other - decreased appetite Positive: Abdominal Pain, Vomiting, Nausea Positive: Anxious All Other Systems Reviewed And Are Negative: Yes Physical Exam - Summary Physical Exam Summary: Appearance: Ill-appearing, Well-nourished, lying in bed vomiting Skin: Warm, dry, no obvious rash Eyes: sclera anicteric, no conjunctival pallor ENT: mucous membranes moist, pharynx appears normal Neck: Supple, nontender Respiratory: Clear to auscultation, no signs of respiratory distress Cardiovascular: Normal S1, S2. No murmurs. Normal distal pulses in tibial and radial bilaterally. Abdomen: Soft, nontender, normal active bowel sounds present Musculoskeletal: Normal, Strength/ROM Intact Neurological: A&Ox3, awake and alert, mentation is normal, speech is fluent and appropriate Psychiatric: affect is normal, does not appear anxious or depressed Triage Information Reviewed: Yes Vital Signs On Initial Exam: Initial Vitals Temp Pulse Resp BP Pulse Ox 96.6 F 76 18 165/80 99 08/28/18 18:24 08/28/18 18:24 08/28/18 18:24 08/28/18 18:24 08/28/18 18:24 Vital Signs Reviewed: Yes Diagnostics - Vital Signs Vital Signs Temp Pulse Resp BP Pulse Ox 08/28/18 18:24 96.6 F 76 18 165/80 99 - Laboratory Result Diagrams: 08/28/18 19:24 08/28/18 19:24 Lab Statement: Any lab studies that have been ordered have been reviewed, and results considered in the medical decision making process. Abdominal Pain Male Course/Dx - Course Course Of Treatment: Pt is a 53 y/o M presenting to the ED with a chief complaint of nausea/vomiting. He woke up with nausea/vomiting, and he reports associated decreased appetite and abdominal pain, as well as anxiety. Pt actively vomiting at bedside. In the ED course, the pt was given Zofran and Lorazepam to treat his nausea and anxiety, respectively. He states these attacks are usually caused by GERD, and that his anxiety has not gone away as of 20:17. He will be given more Lorazepam to help him calm down. His lab results are WNL. The pt has been stable and has not vomited in the past multiple hours in the ED. He is agreeable with being discharged with a dx of cyclic vomiting syndrome. - Diagnoses Provider Diagnoses: Cyclic vomiting syndrome Discharge - Sign-Out/Discharge Documenting (check all that apply): Patient Departure Patient Received Moderate/Deep Sedation with Procedure: No - Discharge Plan Condition: Good Disposition: HOME Prescriptions: LORazepam TAB(*) [Ativan 1 MG TAB (*)] 1 mg PO Q4H PRN #15 tab MDD 4 tabs PRN Reason: Anxiety Ondansetron ODT TAB* [Zofran 4 MG Odt TAB*] 8 mg PO Q6H PRN #15 tab.odt PRN Reason: Nausea Prochlorperazine SUPP* [Compazine Supp*] 25 mg CA Q12H PRN #6 supp PRN Reason: Nausea Patient Education Materials: Cyclic Vomiting Syndrome (ED) Referrals: Peter Lee MD [Primary Care Provider] - - Billing Disposition and Condition Condition: GOOD Disposition: Home - Attestation Statements Document Initiated by Scribe: Yes Documenting Scribe: Nieves Peck Provider For Whom Scribe is Documenting (Include Credential): Mike Thompson MD. Scribe Attestation: Nieves Leiva scribed for Mike Thompson MD. on 09/02/18 at 0411. Scribe Documentation Reviewed: Yes Provider Attestation: The documentation as recorded by the Nieves hu accurately reflects the service I personally performed and the decisions made by Mike keller MD. Status of Scribe Document: Viewed
[2018-08-28 19:33] LABS: ABS Lymphocytes 1.2 10^3/ul (1.0-4.8); ABS Monocytes 0.2 10^3/ul (0-0.8); Hematocrit 38 % (42-52); Hemoglobin 12.8 g/dL (14.0-18.0); Lymphocyte % 18.9 %; Mean Corpuscular HGB Conc 34 g/dL (31-36); Mean Corpuscular Hemoglobin 30 pg (27-31); Mean Corpuscular Volume 89 fL (80-94); Mean Platelet Volume 8.9 fL (7.4-10.4); Nucleated Red Blood Cells % 0.1; Platelet Count 329 10^3/uL (150-450); Red Blood Count 4.33 10^6 /uL (4.18-5.48); Red Cell Distribution Width 15 % (10.5-15); White Blood Count 6.4 10^3/uL (3.5-10.8)
[2018-08-28 19:48] LABS: Albumin/Globulin Ratio 1.9 (1-3); Calcium 9.8 mg/dL (8.6-10.3); EGFR African American 102.4 (>60); EGFR Non-African American 84.6 (>60); Globulin 2.7 g/dL (2-4); Potassium 3.4 mmol/L (3.5-5.0); Total Protein 7.7 g/dL (6.4-8.9)
[2018-08-28] MEDS ORDERED: Haloperidol INJ IV/IM* 5 MG/ML AMP IV SLOW PU ONE ×2 (20:18→23:42)
[2018-08-29 04:52] VITALS: BP 150/64
== END 2018-08-29 04:45 | disposition home or self-care (01) ==
LOC: ED 18:21
DX: G43.A0 Cyclical vomiting, in migraine, not intractable (principal); D64.9 Anemia, unspecified; F32.9 Major depressive disorder, single episode, unspecified
CPT/HCPCS: 36415; 80053; 83690; 85025; 96361; 96374; 96375; 96376; 99284; J1630; J2060; J2405

== ENCOUNTER 2018-08-30 12:11 | Observation (INO) | payer OTHER ==
[2018-08-30] MEDS ORDERED: Ondansetron ODT TAB* 4 MG PO ONE (13:36)
[2018-08-30] MEDS ORDERED: NS 0.9% 1000 ML** 2,000 ML IV ONE (13:36)
--- NOTE | 2018-08-30 13:38 | ED ---
GI/ HPI - HPI Summary HPI Summary: A 53 y/o male presents to [facility] with a chief complaint of N/V since yesterday. He reports that he was in the ED yesterday and was discharged this morning, but his N/V then continued. He also reports epigastric pain and a headache. At triage he rated his pain as an 8/10 in severity. - History of Current Complaint Chief Complaint: EDNauseaVomitDiarrh Time Seen by Provider: 08/30/18 13:25 Stated Complaint: VOMITING Hx Obtained From: Patient Onset/Duration: Started Hours Ago, Still Present Timing: Constant, Lasting Hours Severity: Severe Current Severity: Severe Pain Intensity: 8 - out of 10 Location of Pain: Epigastric Pain Characteristics: Unable to describe Associated Signs and Symptoms: Positive: Nausea, Other: - headache. Negative: Fever Aggravating Factor(s): Nothing Alleviating Factor(s): Nothing - Allergy/Home Medications Allergies/Adverse Reactions: Allergies Allergy/AdvReac Type Severity Reaction Status Date / Time No Known Allergies Allergy Verified 08/30/18 13:28 PMH/Surg Hx/FS Hx/Imm Hx Endocrine/Hematology History: Reports: Hx Anemia Denies: Hx Diabetes Cardiovascular History: Denies: Hx Congestive Heart Failure, Hx Hypertension, Hx Pacemaker/ICD Respiratory History: Denies: Hx Asthma GI History: Reports: Hx Gall Bladder Disease, Hx Gastroesophageal Reflux Disease , Other GI Disorders - pancreatitis Musculoskeletal History: Reports: Hx Back Problems - chronic low back pain, Hx Orthopedic Injury - left shoulder injury Sensory History: Denies: Hx Hearing Aid Psychiatric History: Reports: Hx Depression Denies: Hx Panic Disorder - Surgical History Surgery Procedure, Year, and Place: ACL REPAIR RT KNEE - Immunization History Date of Tetanus Vaccine: 09/15/2013 Infectious Disease History: No Infectious Disease History: Denies: Traveled Outside the [place] in Last 30 Days - Family History Known Family History: Negative: Hypertension - Social History Alcohol Use: None Hx Substance Use: Yes Substance Use Type: Reports: Marijuana, Prescribed Substance Use Comment - Amount & Last Used: oxycontin 10mg bid; suboxone 4mg TID Hx Tobacco Use: No Smoking Status (MU): Never Smoked Tobacco Review of Systems Negative: Fever Positive: Abdominal Pain, Vomiting, Nausea Positive: Headache All Other Systems Reviewed And Are Negative: Yes Physical Exam - Summary Physical Exam Summary: VITAL SIGNS: Reviewed. GENERAL: Patient is a well-developed and nourished MALE who is lying comfortable in the stretcher. Patient is not in any acute respiratory distress. HEAD AND FACE: No signs of trauma. No ecchymosis, hematomas or skull depressions. No sinus tenderness. EYES: PERRLA, EOMI x 2, No injected conjunctiva, no nystagmus. EARS: Hearing grossly intact. Ear canals and tympanic membranes are within normal limits. MOUTH: Oropharynx within normal limits. NECK: Supple, trachea is midline, no adenopathy, no JVD, no carotid bruit, no c- spine tenderness, neck with full ROM. CHEST: Symmetric, no tenderness at palpation LUNGS: Clear to auscultation bilaterally. No wheezing or crackles. CVS: Regular rate and rhythm, S1 and S2 present, no murmurs or gallops appreciated. ABDOMEN: Soft, epigastric pain, actively vomiting. No signs of distention. No rebound no guarding, and no masses palpated. Bowel sounds are normal. EXTREMITIES: FROM in all major joints, no edema, no cyanosis or clubbing. NEURO: Alert and oriented x 3. No acute neurological deficits. Speech is normal and follows commands. SKIN: Dry and warm. Triage Information Reviewed: Yes Vital Signs On Initial Exam: Initial Vitals Temp Pulse Resp BP Pulse Ox 98.0 F 55 20 96/78 100 08/30/18 12:13 08/30/18 12:13 08/30/18 12:13 08/30/18 12:13 08/30/18 12:13 Vital Signs Reviewed: Yes Diagnostics - Vital Signs Vital Signs Temp Pulse Resp BP Pulse Ox 08/30/18 12:13 98.0 F 55 20 96/78 100 - Laboratory Result Diagrams: 08/31/18 06:46 08/31/18 06:46 Lab Statement: Any lab studies that have been ordered have been reviewed, and results considered in the medical decision making process. - Radiology abdomen x-ray Radiology Interpretation Completed By: Radiologist Summary of Radiographic Findings: No abdominal pelvic pathologic process evident. ED physician has reviewed this imaging report. GIGU Course/Dx - Course Assessment/Plan: A 53 y/o male presents to [facility] with a chief complaint of N/V since yesterday. He reports that he was in the ED yesterday and was discharged this morning, but his N/V then continued. He also reports epigastric pain and a headache. At triage he rated his pain as an 8/10 in severity. In the ED course the patient was given IV fluids and Zofran for the nausea and vomiting. Blood test results without any significant abnormality except for potassium level of 3.4, and glucose of 112. The patient was given Pepcid, Reglan, and Benadryl since the patient was having more nausea and vomiting. Test results without any significant abnormality except for potassium at 3.4, glucose 112, urinalysis negative for UTI, positive cannabinoids. X-ray of the abdomen impression: No abdominal pelvic pathology process evident. The patient continues to have nausea and vomiting therefore he was given a dose of Compazine. The patient has been observed in the ED for more than 5 hours therefore at this time I discussed my physical exam and findings with Dr. Puentes from the hospital services who accepted the patient for admission. Patient is hemodynamically stable. - Diagnoses Provider Diagnoses: Intractable nausea and vomiting - Physician Notifications Discussed Care Of Patient With: John Puentes Time Discussed With Above Provider: 17:20 Instructed by Provider To: Admit As Inpatient Discharge - Sign-Out/Discharge Documenting (check all that apply): Patient Departure - admit Patient Received Moderate/Deep Sedation with Procedure: No - Discharge Plan Condition: Fair Disposition: ADMITTED TO [facility] - Billing Disposition and Condition Condition: FAIR Disposition: Admitted to [facility] - Attestation Statements Document Initiated by Del: Yes Documenting Scribe: Ky Momin Provider For Whom Del is Documenting (Include Credential): Shad Darby MD Scribe Attestation: IKy scribed for Shad Darby MD on 08/31/18 at 0811. Scribe Documentation Reviewed: Yes Provider Attestation: The documentation as recorded by the Ky hu accurately reflects the service I personally performed and the decisions made by me, Shad Darby MD Status of Scribe Document: Viewed
[2018-08-30] MEDS ORDERED: Ondansetron INJ* 2 MG/ML VIAL IV ONE (13:46)
[2018-08-30 13:56] LABS: ABS Monocytes 0.3 10^3/ul (0-0.8); ABS Neutrophils 6.7 10^3/ul (1.5-7.7); Eosinophil % 0.1 %; Hematocrit 38 % (42-52); Hemoglobin 12.7 g/dL (14.0-18.0); Lymphocyte % 12.3 %; Mean Corpuscular HGB Conc 34 g/dL (31-36); Mean Corpuscular Hemoglobin 30 pg (27-31); Mean Corpuscular Volume 88 fL (80-94); Mean Platelet Volume 9.3 fL (7.4-10.4); Platelet Count 336 10^3/uL (150-450); Red Cell Distribution Width 14 % (10.5-15)
[2018-08-30 14:13] LABS: ALT 16 U/L (7-52); AST 31 U/L (13-39); Albumin 4.6 g/dL (3.2-5.2); Albumin/Globulin Ratio 1.8 (1-3); Alkaline Phosphatase 29 U/L (34-104); Anion Gap 7 mmol/L (2-11); BUN/Creatinine Ratio 13.6 (8-20); Blood Urea Nitrogen 14 mg/dL (6-24); C Reactive Protein < 1.00 mg/L (<8.01); CO2 Carbon Dioxide 28 mmol/L (22-32); Calcium 9.2 mg/dL (8.6-10.3); Chloride 103 mmol/L (101-111); EGFR African American 92.1 (>60); EGFR Non-African American 76.1 (>60); Globulin 2.5 g/dL (2-4); Glucose 112 mg/dL (70-100); Potassium 3.4 mmol/L (3.5-5.0); Sodium 138 mmol/L (135-145); Total Protein 7.1 g/dL (6.4-8.9)
[2018-08-30] MEDS ORDERED: Pantoprazole IV* 40 MG IV ONE (14:20)
[2018-08-30] MEDS ORDERED: Metoclopramide IV* 5 MG/ML 2 ML VIAL IV ONE (14:20)
[2018-08-30] MEDS ORDERED: diPHENhydraMINE IV* 50 MG/ML 1 ml VIAL (BENADRYL) IV ONE (14:20)
[2018-08-30 14:36] LABS: Urine Appearance Clear; Urine Bacteria Absent (Absent); Urine Bilirubin Negative (Negative); Urine Blood 1+ (Negative); Urine Color Yellow; Urine Glucose Negative (Negative); Urine Ketones 2+ (Negative); Urine Nitrite Negative (Negative); Urine Protein 1+(30 mg/dL) (Negative); Urine Red Blood Cell 2+(6-10/hpf) (Absent); Urine Specific Gravity 1.029 (1.010-1.030); Urine Squamous Epithelial Cell Present (Absent); Urine Urobilinogen Negative (Negative); Urine White Blood Cell Absent (Absent)
[2018-08-30] MEDS ORDERED: Famotidine IV* 10 MG/ML 2 ML (20 mg) IV SLOW PU ONE (14:56)
[2018-08-30 14:57] LABS: Urine Benzodiazepine Screen None Detected (None Detect); Urine Opiates Screen None Detected (None Detect)
[2018-08-30] MEDS ORDERED: PROCHLORPERAZINE INJ 5 MG/ML 2 ML VIAL IV ONE (17:19)
[2018-08-30] MEDS ORDERED: diPHENhydraMINE IV* 50 MG/ML 1 ml VIAL (BENADRYL) IV PRN (18:28)
[2018-08-30] MEDS ORDERED: NS 0.9% 1000 ML** 1,000 ML IV SCH (18:30)
[2018-08-30] MEDS ORDERED: hydrOXYzine HCL TAB* 25 MG PO PRN (18:42)
--- NOTE | 2018-08-30 20:10 | HP ---
CC: Dr. Peter Lee; Dr. Casillas* HISTORY AND PHYSICAL: DATE OF ADMISSION: 08/30/18 PRIMARY CARE PROVIDER: Dr. Peter Lee GAS DERRICK OPERATOR: Dr. Casillas. ATTENDING PHYSICIAN: Dr. John Puentes* (dictated by JAMAICA Parekh). CHIEF COMPLAINT: 1. Nausea. 2. Vomiting. 3. Abdominal pain. 4. Headache. HISTORY OF PRESENT ILLNESS: Mr. Rod is a 53-year-old male with a past medical history of H. pylori in March 2019, iron deficiency anemia, GERD, chronic low back pain, who presented to the ER on 08/28/18 with complaints of nausea and vomiting. 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 He notes that vomiting stopped for 1 to 2 hours and then restarted. He states that nausea is constant. He presented to the ER today with complaints of nausea, vomiting, abdominal pain, and headache. He states that he has been unable to eat or drink for approximately 2 days. He notes that he attempted to drink an Ensure today but was unable to keep it down. He notes that he has a history of H. pylori. He had a colonoscopy and EGD 6 months ago and was treated with antibiotics and omeprazole. He states that he is still on omeprazole. He states that he uses ibuprofen occasionally but tries to use Tylenol instead. He denies hematemesis, hematochezia, melena. He denies exposure to food borne illness. He denies recent travel or change in drug use. He denies alcohol use. He does note that he is on buprenorphine/naloxone. At this time, he continues to have nausea and vomiting. He also admits to some anxiety. He notes that his abdomen is tender across the right and left upper quadrants. He states that this is more painful with vomiting. He also notes that he has a history of pancreatitis. He denies fever. While in the emergency room, the patient received a full workup which included imaging and blood work. He received Benadryl, Pepcid, Reglan, Zoloft, Protonix, Compazine and 2 L of IV fluids. The patient admits to marijuana use which he states he uses every other day. He states that he has not smoked marijuana in approximately 1 week. Hospitalist team was asked to evaluate the patient for admission. PAST MEDICAL HISTORY: 1. GERD. 2. Anemia - the patient believes it is iron deficiency anemia, although he is on no medication for this. 3. History of H. pylori March 2019. 4. History of pancreatitis. 5. Chronic low back pain - the patient on Suboxone. 6. Anxiety. PAST SURGICAL HISTORY: ACL right knee, EGD, colonoscopy in March 2019. HOME MEDICATIONS: 1. Buprenorphine/naloxone 8-2 mg half strip sublingual t.i.d. 2. D 1000 plus Aloe 1 tab p.o. daily. 3. Cholecalciferol 5000 units p.o. daily. 4. Gabapentin 300 mg p.o. t.i.d. 5. Hydroxyzine 25 mg p.o. q.i.d. p.r.n. anxiety. 6. Ibuprofen 800 mg p.o. t.i.d. p.r.n. 7. Ranitidine 150 mg p.o. p.r.n. heart burn. 8. Lorazepam 1 mg p.o. q.4 hours p.r.n. anxiety maximum daily dose 4 tabs. 9. Ondansetron 8 mg p.o. q.6 hours p.r.n. nausea. 10. Prochlorperazine 25 mg suppository q.12 hours p.r.n. nausea. DRUG ALLERGIES: No known drug allergies. FAMILY HISTORY: The patient is adopted. SOCIAL HISTORY: The patient denies current use of tobacco. He states that he quit smoking approximately 4 years ago. He states that he smoked for approximately 2 years, 1 pack per week. He denies alcohol use. He states that he uses marijuana on an every other day basis. He is on Suboxone. The patient lives with his parents. In the event that he is unable to make his own medical decisions, he appoints his mother, Meng Rod to be his surrogate decision maker. REVIEW OF SYSTEMS: A 10-point review of systems was performed and all the pertinent positives and negatives are in the HPI. All other systems are negative. PHYSICAL EXAMINATION GENERAL: Mr. Rod is a well-developed, well-nourished obese, middle aged man, who appears unwell. He is lying on his left side in bed. He is nauseous with occasional vomiting. VITAL SIGNS: Temperature 98.0 temporal, heart rate 55, respiratory rate 20, oxygen saturation 100% on room air, blood pressure 96/78. HEENT: Visual villalobos are grossly intact. Pupils are equally round and reactive to light. Extraocular movements are intact. Sclerae are without icterus. Hearing is grossly intact. Oral mucous membranes are dry. There are no lesions. Pharynx is clear. RESPIRATORY: Symmetrical chest expansion without use of accessory muscles. Lungs are clear to auscultation bilaterally. There is no rhonchi, wheezes, or rubs. CARDIOVASCULAR: Regular rate and rhythm with S1, S2 present. No murmurs, rubs , clicks or gallops. There is no JVD. ABDOMEN: Abdomen is flat. Bowel sounds hypoactive in all quadrants. The abdomen is diffusely tender to palpation. Negative Adams's sign. Negative psoas sign. Negative for rebound tenderness. EXTREMITIES: Skin is warm and smooth bilaterally. There is no clubbing, cyanosis, or edema. Radial and pedal pulses are palpable. NEURO: The patient is awake. He is alert and oriented x3. He is able to move all of his extremities. DIAGNOSTIC STUDIES/LAB DATA: Abdomen x-ray 08/30/18, impression: No abdominal pelvic pathologic process evident. WBC 9.0, HGB 12.7, HCT 38. Potassium 3.4. Glucose 112. Alk phos 29. Lipase less than 10. CRP less than 1.0. Urine drug screen positive for cannabinoids. ASSESSMENT AND PLAN: Mr. Rod is a 53-year-old male with a past medical history of Helicobacter pylori, gastroesophageal reflux disease, pancreatitis, who presented to the ER today with complaints of nausea and vomiting. He will be admitted observation for: 1. Nausea, vomiting. The patient has had 2.5 days of intractable nausea and vomiting with intermittent abdominal pain in the left and right upper quadrant. He is unable to tolerate p.o. intake. Differentials include Helicobacter pylori, cyclic vomiting syndrome due to marijuana use. We will continue ranitidine 150 daily and pantoprazole in place of his omeprazole. The patient will be placed on Benadryl, Zofran, and scopolamine patch as needed. IV fluids will be continued. Clear liquid diet ordered, to advance as advance as tolerated. Gastroenterology has been consulted due to recent history of H. pylori. Hot pack, hot shower had been ordered for abdominal pain relief. 2. Hypokalemia. Potassium was 3.4 on admission, this is likely due to vomiting. This will be repleted IV. Will continue to monitor. 3. Gastroesophageal reflux disease. The patient will continue PPI and H2RA. 4. Anemia. The patient's H and H are low but within normal limits. The patient believes that he has iron deficiency anemia, but takes no medications for this. 5. Chronic low back pain. Continue gabapentin and Suboxone. 6. Anxiety. Continue Atarax 25 q.i.d. p.r.n. anxiety. 7. FEN: Clear liquid diet, 1 L IV fluids at 100 cc/hour overnight x1. 8. Code status. Full code. 9. DVT prophylaxis: According to DVT risk assessment, the patient scores 2 and is placed at moderate risk. He will be placed on Lovenox 40 q.24 hours. TIME SPENT: Approximately 60 minutes was spent on this admission, greater than half that time was spent face to face with the patient obtaining history, performing physical, and reviewing the plan of care. The case has been reviewed with my attending, Dr. Puentes, who is in agreement with the plan of care. JAMAICA MORRIS [id number]/[facility] #: [id number] MTDD
[2018-08-30] MEDS ORDERED: Scopolamine 1.5 mg* PATCH TRANSDERM SCH (20:30)
[2018-08-30] MEDS: Buprenorp/Nalox 4-1 MG FILM 1 EACH SL FILM SCH (20:35)
[2018-08-30] MEDS: Gabapentin CAP(*) 300 MG PO SCH (21:32)
[2018-08-30] MEDS: Enoxaparin(*) 40 MG/0.4 ML SYR SUBCUT SCH (21:32)
[2018-08-30] MEDS: KCL 20 MEQ/100 ML IVPREMIX* 20 MEQ/100 ML BAG IV SCH (21:32)
[2018-08-30] MEDS: Ondansetron INJ* 2 MG/ML VIAL IV PRN (21:43)
[2018-08-31] MEDS: Ondansetron INJ* 2 MG/ML VIAL IV PRN ×2 (04:47→22:26)
[2018-08-31 06:59] LABS: ABS Lymphocytes 2.5 10^3/ul (1.0-4.8); ABS Monocytes 0.5 10^3/ul (0-0.8); ABS Neutrophils 4.5 10^3/ul (1.5-7.7); Eosinophil % 0.4 %; Hematocrit 35 % (42-52); Hemoglobin 11.8 g/dL (14.0-18.0); Lymphocyte % 32.9 %; Mean Corpuscular HGB Conc 34 g/dL (31-36); Mean Corpuscular Hemoglobin 30 pg (27-31); Mean Corpuscular Volume 88 fL (80-94); Mean Platelet Volume 9.2 fL (7.4-10.4); Nucleated Red Blood Cells % 0.1; Platelet Count 237 10^3/uL (150-450); Red Blood Count 3.93 10^6 /uL (4.18-5.48); Red Cell Distribution Width 14 % (10.5-15); White Blood Count 7.6 10^3/uL (3.5-10.8)
[2018-08-31 07:15] LABS: Albumin/Globulin Ratio 1.8 (1-3); BUN/Creatinine Ratio 10.8 (8-20); Calcium 8.6 mg/dL (8.6-10.3); EGFR African American 93.2 (>60); Globulin 2.2 g/dL (2-4); Potassium 3.8 mmol/L (3.5-5.0); Total Bilirubin 1.1 mg/dL (0.2-1.0); Total Protein 6.2 g/dL (6.4-8.9)
--- NOTE | 2018-08-31 07:30 | PN ---
Subjective Date of Service: 08/31/18 Interval History: HD # 2 on 08/31 53 yo M with PMH PUD, GERD, CLBP, cyclic vomiting in setting of MJ and hx of OUD on MAT (x 3 years) use who was admitted for nausea and hyperemsis Overnight no acute events, VSS, Tmax 99.4 This morning, advanced diet to clears, reports feeling a little bit better but sleeping a bit, discussed tx to date, felt H pylori tx the most helpful, we discuss proceeding as outpt for delayed gastric stuides if warranted, has a relationship with dr. Casillas. No diarrhea, no constipation but no recent BM, will slowly advance and tx sx Objective Active Medications: Buprenorphine/Naloxone (Suboxone 4 Mg-1 Mg Sl Film) 1 each SL FILM TID [facility] Last Admin: 08/30/18 20:35 Dose: 1 each Cholecalciferol (Vitamin D Tab*) 5,000 units PO DAILY [facility] Diphenhydramine HCl (Benadryl Iv*) 25 mg IV Q6H PRN PRN Reason: PRURITIS Enoxaparin Sodium (Lovenox(*)) 40 mg SUBCUT Q24H [facility] Last Admin: 08/30/18 21:32 Dose: 40 mg Famotidine (Pepcid Tab*) 20 mg PO DAILY [facility]; Protocol Gabapentin (Neurontin Cap(*)) 300 mg PO TID [facility] Last Admin: 08/30/18 21:32 Dose: 300 mg Hydroxyzine HCl (Atarax Tab*) 25 mg PO QID PRN PRN Reason: ANXIETY Ondansetron HCl (Zofran Inj*) 4 mg IV Q4H PRN PRN Reason: NAUSEA/VOMITING Last Admin: 08/31/18 04:47 Dose: 4 mg Pantoprazole Sodium (Protonix Tab*) 40 mg PO DAILY [facility] Pharmacy Profile Note (Scopolamine Patch Remove*) 1 note PATCH OFF .AFTER 72 HOURS [facility] Scopolamine (Transderm-Scop 1.5 Mg Patch*) 1 patch TRANSDERM Q72H [facility] Last Admin: 08/30/18 21:37 Dose: 1 patch Vital Signs - 8 hr 08/30/18 08/30/18 08/31/18 23:30 23:31 03:45 Temperature 99.4 F 98.9 F Pulse Rate 41 41 Respiratory 18 18 18 Rate Blood Pressure 127/61 112/53 (mmHg) O2 Sat by Pulse 97 97 Oximetry Oxygen Devices in Use Now: None Appearance: Pleasant man, sleeping in bed, conversant Eyes: No Scleral Icterus Ears/Nose/Mouth/Throat: NL Teeth, Lips, Gums Neck: NL Appearance and Movements; NL JVP, Trachea Midline Respiratory: Symmetrical Chest Expansion and Respiratory Effort, Clear to Auscultation Cardiovascular: NL Sounds; No Murmurs; No JVD, RRR, - - Mild dee dee Abdominal: NL Sounds; No Tenderness; No Distention, No Hepatosplenomegaly Lymphatic: No Cervical Adenopathy, No Axillary Adenopathy Extremities: No Edema Skin: No Rash or Ulcers Neurological: Alert and Oriented x 3 Result Diagrams: 08/31/18 06:46 08/31/18 06:46 Assess/Plan/Problems-Billing Assessment: 53 yo M with PMH PUD, GERD, CLBP, cyclic vomiting in setting of MJ and OUD on MAT use who was admitted for nausea and hyperemsis - Patient Problems (1) Hyperemesis Current Visit: Yes Status: Acute Code(s): R11.10 - VOMITING, UNSPECIFIED SNOMED Code(s): 318421223 Comment: -DDx broad hyperemsis of cannaboanoid, gastroparesis in setting of Suboxone TID use, viral -Supportive care-Benadry, Fmaotidine, Compazine, Zofran, Scopalamine, Reglan, no longer on IVF (2) GERD (gastroesophageal reflux disease) Current Visit: Yes Status: Acute Code(s): K21.9 - GASTRO-ESOPHAGEAL REFLUX DISEASE WITHOUT ESOPHAGITIS SNOMED Code(s): 139657748 Comment: -S/P H Pylori tx, continue on H2, PPI (3) Anemia Current Visit: Yes Status: Acute Code(s): D64.9 - ANEMIA, UNSPECIFIED SNOMED Code(s): 666839600 Comment: -CTM, stable (4) Chronic low back pain Current Visit: Yes Status: Acute Code(s): M54.5 - LOW BACK PAIN; G89.29 - OTHER CHRONIC PAIN SNOMED Code(s): 589622303 Comment: -On suboxone and bety (5) Opioid use disorder Current Visit: Yes Status: Acute Code(s): F11.99 - OPIOID USE, UNSP WITH UNSPECIFIED OPIOID-INDUCED DISORDER SNOMED Code(s): 92233114 Comment: -on MAT (6) Bradycardia Current Visit: Yes Status: Acute Code(s): R00.1 - BRADYCARDIA, UNSPECIFIED SNOMED Code(s): 26538592 Comment: - Asypmtomatic (7) DVT prophylaxis Current Visit: Yes Status: Acute Code(s): Z29.9 - ENCOUNTER FOR PROPHYLACTIC MEASURES, UNSPECIFIED SNOMED Code(s): 523129676 (8) Full code status Current Visit: Yes Status: Acute Code(s): Z78.9 - OTHER SPECIFIED HEALTH STATUS SNOMED Code(s): 914353518 Status and Disposition: Obs, d/c as able, unlikely today
[2018-08-31] MEDS: Pantoprazole TAB * 40 MG TAB PO SCH (08:17)
[2018-08-31] MEDS: Buprenorp/Nalox 4-1 MG FILM 1 EACH SL FILM SCH ×3 (08:17→21:22)
[2018-08-31] MEDS: Famotidine TAB* 20 MG PO SCH (08:17)
[2018-08-31] MEDS: Gabapentin CAP(*) 300 MG PO SCH ×3 (08:17→21:22)
[2018-08-31] MEDS: Cholecalciferol TAB* 1000 UNITS PO SCH (08:17)
[2018-08-31] MEDS: KCL 20 MEQ/100 ML IVPREMIX* 20 MEQ/100 ML BAG IV SCH (08:21)
[2018-08-31] MEDS ORDERED: Metoclopramide IV* 5 MG/ML 2 ML VIAL IV PRN (17:02)
--- NOTE | 2018-08-31 19:09 | CONS ---
CC: Dr. Lee* CONSULTATION REPORT: DATE OF CONSULT: 08/31/18 REQUESTING PHYSICIAN: Dr. Anna. INDICATION: Nausea and vomiting. NARRATIVE: Mr. Rod is a very pleasant 53-year-old gentleman who has a long history of nausea and vomiting. He did have a recent EGD with Dr. Casillas in March of last year. At that time, he was diagnosed with H. pylori and was treated. He tells me that he has not had his followup breath test to confirm eradication. 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 He started getting nauseated because of that and started vomiting. He tried hard not to vomit, but he believes that may have triggered his nausea and vomiting. He denies any abdominal pain. There has been no blood in his stool. He is slightly constipated. He states that this episode of nausea and vomiting a little bit different because this lasted a little bit longer. Oftentimes it just lasts 1 day but then this time it has lasted 3 days. He states that at this point, he is feeling much better. He feels like a "new man" and "I have a new lease on life." PAST MEDICAL HISTORY: 1. GERD. 2. Anemia. 3. History of H. pylori. 4. Anxiety. 5. Pancreatitis. 6. Chronic back pain. PAST SURGICAL HISTORY: Includes ACL repair of his right knee. MEDICATIONS: At home include: 1. Zofran. 2. Lorazepam. 3. Ranitidine. 4. Ibuprofen as needed. 5. Hydroxyzine. 6. Gabapentin. 7. Suboxone. ALLERGIES: None. FAMILY HISTORY: He is adopted, thus he does not know. SOCIAL HISTORY: No tobacco. He quit smoking approximately 3 to 4 years ago. He does smoke marijuana. He has not smoked in about a week. He rarely drinks alcohol. REVIEW OF SYSTEMS: Twelve systems were reviewed, other than that mentioned in the HPI were unremarkable. PHYSICAL EXAMINATION: Vital Signs: Temperature is 98.6, blood pressure is 135/ 66, pulse is 77, respiratory rate of 98% on room air. General: Well-appearing male, in no apparent distress, alert, oriented, pleasant, fluent. HEENT: Mucous membranes are moist without lesions, ulcers, or exudate. Neck is supple. Trachea is midline. Head is normocephalic, atraumatic. Heart: Regular, rate and rhythm. Lungs clear to auscultation. Abdomen: Positive bowel sounds, soft, slight tenderness to palpation. No rebound. No guarding. No masses. Skin is warm and dry. Neuro: No asterixis. LABORATORY DATA/DIAGNOSTIC STUDIES: Labs of note, his white count is 7.6, hemoglobin is 11.8, platelet count of 237. Bilirubin of 1.1, AST is 61, alk phos is 25. He had an abdominal x-ray yesterday, which showed normal. ASSESSMENT AND PLAN: A 53-year-old gentleman with chronic nausea and vomiting. He very well could have cyclical vomiting syndrome given the nature of the repetitive episodes where he feels totally normal in between each episode that tend to last 1 to 3 days. He is feeling much better at this time. It seems like the trigger at this time may have been the cleaning products. We do need to confirm eradication of his H. pylori. I encouraged him to call our office to set that up. He denies any other ominous symptoms at this time. He is asking for regular diet at this point. I think that is reasonable if he can tolerated and he can be discharged to home and he can follow up with Dr. Casillas as an outpatient. [id number]/[facility] #: [id number] JAIRO
[2018-08-31] MEDS: Enoxaparin(*) 40 MG/0.4 ML SYR SUBCUT SCH (21:22)
[2018-08-31] MEDS ORDERED: Melatonin 3 MG TAB PO SCH (22:00)
--- NOTE | 2018-09-01 07:18 | PN ---
Subjective Date of Service: 09/01/18 Interval History: HD # 3 on 09/01 53 yo M with PMH PUD, GERD, CLBP, cyclic vomiting in setting of MJ and hx of OUD on MAT (x 3 years) use who was admitted for nausea and hyperemsis Overnight no acute events, VSS Advanced diet, feels better this AM, discussed etiology and given education on how to avoid events in the future, he wants to trial off of MJ Objective Active Medications: Buprenorphine/Naloxone (Suboxone 4 Mg-1 Mg Sl Film) 1 each SL FILM TID [facility] Last Admin: 08/31/18 21:22 Dose: 1 each Cholecalciferol (Vitamin D Tab*) 5,000 units PO DAILY [facility] Last Admin: 08/31/18 08:17 Dose: 5,000 units Diphenhydramine HCl (Benadryl Iv*) 25 mg IV Q6H PRN PRN Reason: PRURITIS Enoxaparin Sodium (Lovenox(*)) 40 mg SUBCUT Q24H [facility] Last Admin: 08/31/18 21:22 Dose: Not Given Famotidine (Pepcid Tab*) 20 mg PO DAILY [facility]; Protocol Last Admin: 08/31/18 08:17 Dose: 20 mg Gabapentin (Neurontin Cap(*)) 300 mg PO TID [facility] Last Admin: 08/31/18 21:22 Dose: 300 mg Hydroxyzine HCl (Atarax Tab*) 25 mg PO QID PRN PRN Reason: ANXIETY Last Admin: 08/31/18 14:40 Dose: 25 mg Melatonin (Melatonin) 3 mg PO BEDTIME [facility] Last Admin: 08/31/18 22:20 Dose: 3 mg Metoclopramide HCl (Reglan Iv*) 10 mg IV Q6H PRN PRN Reason: NAUSEA/VOMITING Ondansetron HCl (Zofran Inj*) 4 mg IV Q4H PRN PRN Reason: NAUSEA/VOMITING Last Admin: 08/31/18 22:26 Dose: 4 mg Pantoprazole Sodium (Protonix Tab*) 40 mg PO DAILY [facility] Last Admin: 08/31/18 08:17 Dose: 40 mg Pharmacy Profile Note (Scopolamine Patch Remove*) 1 note PATCH OFF .AFTER 72 HOURS [facility] Scopolamine (Transderm-Scop 1.5 Mg Patch*) 1 patch TRANSDERM Q72H [facility] Last Admin: 08/30/18 21:37 Dose: 1 patch Vital Signs - 8 hr 08/31/18 09/01/18 23:48 02:55 Temperature 97.8 F Pulse Rate 43 Respiratory 16 18 Rate Blood Pressure 103/66 (mmHg) O2 Sat by Pulse 96 Oximetry Oxygen Devices in Use Now: None Appearance: V Pleasant well appearing man in NAD, eating breakfast Eyes: No Scleral Icterus Neck: NL Appearance and Movements; NL JVP Respiratory: Symmetrical Chest Expansion and Respiratory Effort, Clear to Auscultation Cardiovascular: NL Sounds; No Murmurs; No JVD, RRR Abdominal: NL Sounds; No Tenderness; No Distention, No Hepatosplenomegaly Lymphatic: No Cervical Adenopathy Extremities: No Edema Skin: No Rash or Ulcers Neurological: Alert and Oriented x 3 Result Diagrams: 08/31/18 06:46 08/31/18 06:46 Assess/Plan/Problems-Billing Assessment: 53 yo M with PMH PUD, GERD, CLBP, cyclic vomiting in setting of MJ and OUD on MAT use who was admitted for nausea and hyperemsis - Patient Problems (1) Hyperemesis Current Visit: Yes Status: Acute Code(s): R11.10 - VOMITING, UNSPECIFIED SNOMED Code(s): 812606864 Comment: -DDx broad hyperemsis of cannaboanoid, gastroparesis in setting of Suboxone TID use, viral -Supportive care-Benadry, Fmaotidine, Compazine, Zofran, Scopalamine, Reglan, no longer on IVF (2) GERD (gastroesophageal reflux disease) Current Visit: Yes Status: Acute Code(s): K21.9 - GASTRO-ESOPHAGEAL REFLUX DISEASE WITHOUT ESOPHAGITIS SNOMED Code(s): 320505187 Comment: -S/P H Pylori tx, continue on H2, PPI (3) Anemia Current Visit: Yes Status: Acute Code(s): D64.9 - ANEMIA, UNSPECIFIED SNOMED Code(s): 389316497 Comment: -CTM, stable (4) Chronic low back pain Current Visit: Yes Status: Acute Code(s): M54.5 - LOW BACK PAIN; G89.29 - OTHER CHRONIC PAIN SNOMED Code(s): 429648074 Comment: -On suboxone and bety (5) Opioid use disorder Current Visit: Yes Status: Acute Code(s): F11.99 - OPIOID USE, UNSP WITH UNSPECIFIED OPIOID-INDUCED DISORDER SNOMED Code(s): 38572191 Comment: -on MAT (6) Bradycardia Current Visit: Yes Status: Acute Code(s): R00.1 - BRADYCARDIA, UNSPECIFIED SNOMED Code(s): 41734426 Comment: - Asypmtomatic (7) DVT prophylaxis Current Visit: Yes Status: Acute Code(s): Z29.9 - ENCOUNTER FOR PROPHYLACTIC MEASURES, UNSPECIFIED SNOMED Code(s): 745015925 Comment: - Lovenox (8) Full code status Current Visit: Yes Status: Acute Code(s): Z78.9 - OTHER SPECIFIED HEALTH STATUS SNOMED Code(s): 893791749 Status and Disposition: Obs, d/c
[2018-09-01] MEDS: Famotidine TAB* 20 MG PO SCH (08:34)
[2018-09-01] MEDS: Pantoprazole TAB * 40 MG TAB PO SCH (08:34)
[2018-09-01] MEDS: Buprenorp/Nalox 4-1 MG FILM 1 EACH SL FILM SCH (08:34)
[2018-09-01] MEDS: Gabapentin CAP(*) 300 MG PO SCH (08:34)
[2018-09-01] MEDS: Cholecalciferol TAB* 1000 UNITS PO SCH (08:34)
--- NOTE | 2018-09-01 09:39 | DS ---
CC: Peter Lee MD; Stephon Casillas DO DISCHARGE SUMMARY: DATE OF ADMISSION: 08/30/18 DATE OF DISCHARGE: 09/01/18 PRIMARY CARE PROVIDER: Peter Lee MD GI PROVIDER: Stephon Casillas DO PRIMARY DIAGNOSIS: Recalcitrant nausea and vomiting. SECONDARY DIAGNOSES: 1. Past medical history of gastroesophageal reflux disease, status post Helicobacter pylori treatment. 2. Chronic low back pain. 3. History of opiate use disorder, on medication assisted therapy and Suboxone for pain. 4. Bradycardia. MEDICATIONS ON DISCHARGE: 1. Buprenorphine/naloxone 4 one film sublingual t.i.d. there is some discrepancy. This is listed as 8 and 4s. We advised the patient to return to his home dosing. 2. Vitamin D3 5000 units p.o. daily. 3. Gabapentin 300 mg p.o. t.i.d. 4. Hydroxyzine 25 mg p.o. 4 times a day. 5. Famotidine 20 mg p.o. daily. 6. Calcium, vitamin D3 1000 units combo tab, 1 tab p.o. daily. 7. Ibuprofen 800 mg p.o. t.i.d. 8. Lorazepam 1 mg p.o. q.4 hours. 9. Ondansetron 8 mg p.o. q.6 hours p.r.n. 10. Compazine syrup 25 mg p.o. q.12 hours p.r.n. Medication changes in this hospitalization include none. HISTORY OF PRESENT ILLNESS AND HOSPITAL COURSE: This is a 53-year-old male with above past medical history, who reported to the emergency room on the evening of 08/30/18 with complaint of 3 days of intractable nausea and vomiting. He reports that he follows with GI, Dr. Casillas in the past and has been diagnosed with chronic cyclic vomiting syndrome, possibly related to cannabinoid use and had recently presented in the emergency room only 2 days prior and was discharged home on Compazine, Zofran, and Ativan. He reports that he was able to stop vomiting for 1 to 2 hours but then it restarted on and thus he came back to the emergency room. He denied any hematemesis, melena, or change in bowel patterns but most suggestive of chronic low level nausea and unable to eat or drink anything for approximately 2 days. In the emergency room, his vital signs were stable with the exception of stable bradycardia in the 50s, unchanged from prior admissions. He had mild hypokalemia to 3.4 and otherwise unremarkable labs. He was admitted on observation status. HOSPITAL COURSE BY PROBLEM LIST: 1. Nausea and vomiting. The patient reports that marijuana use was 5 days prior to admission and so he does not see the correlation between possible hyperemesis, cannabinoid use given that he did not feel a trigger at this most current event. On further review with GI, Dr. Dial, who was consulted on the patient while he was here, patient thought that may be it was triggered by cleaning products. It is possible that this patient has cyclic vomiting syndrome. He had an EGD that revealed H. pylori, it has been fully treated, also has done colonoscopy that was unremarkable. He has not, that he is aware of, had gastroparesis study done and it is reasonable to consider given he is on chronic long-term opiate pain medication. He has had history of opioid use disorder, although his Suboxone dose was fairly reasonable. He is going to follow up with Dr. Casillas and will be discussed further next steps and also needs to be re-tested for H. pylori to prove for clearance. He is managed in supportive care with IV fluids, antiemetics, slow advancing of his diet and patient tolerated supportive treatment well and was able to be discharged on , tolerating normal food, ambulating and feeling back to his baseline. 2. Hypokalemia. He was repleted, this is most likely secondary to vomiting and returned to baseline by hospital day 2. 3. GERD. The patient has history of H. pylori, status post treatment, some PPI and H2 lissett at baseline. These medications were continued. 4. Chronic low back pain. Continue patient's home gabapentin and Suboxone. 5. Anxiety. The patient is on home Atarax. He was scripted 4 tabs of Ativan from his last emergency room visit on 08/28/18 and this was not continued, although he reports he still has some at home. 6. Bradycardia. The patient has stable chronic bradycardia that has been exhibited in prior hospital stays and while sleeping his bradycardia is as low as 45. It is reasonable to consider followup outpatient sleep study or other workup. He has no evidence of block and has been in persistent sinus bradycardia. DISPOSITION AT DISCHARGE: The patient is stable for discharge to home. He is ambulating, voiding freely, and tolerating diet. ITEMS TO FOLLOWUP ON DISCHARGE: 1. Recurrent cyclical vomiting. The patient was educated on hyperemesis cannabinoid syndrome. If there is any underlying component of this, he has follow up with GI. I counseled the patient to eat small frequent bland meals and drink plenty of fluids. He may require gastroparesis study and if possible that his recurrent cyclical vomiting may be secondary to his chronic long-term opiate use, although a gastric edema would need to be established prior to this. 2. Bradycardia. This may be a chronic longstanding problem for this patient and he is asymptomatic during that he does have significant bradycardia while sleeping. Reasonable to consider sleep study if primary care feels it is appropriate. LABS ON THE DAY OF DISCHARGE: From 08/31/18, patient's sodium is 139, potassium of 3.8, chloride 105, carbon dioxide 29, BUN 11, creatinine 1.02, and glucose 87. LFTs on this admission are normal. UA was unremarkable with the exception of 2+ ketones. Tox showed presumptive positive for cannabinoids but otherwise negative and H and H consistent with mild normocytic anemia 12.7 and 38, which the patient reports is consistent with prior baseline. IMAGING DONE DURING THIS HOSPITALIZATION: Include abdominal x-ray done in the emergency room, which is significant for no abdominopelvic pathology. CONSULTANTS DURING THIS HOSPITALIZATION: Include GI, Dinesh Dial, who saw the patient after his symptoms had resolved and felt that this is possible this was cyclical vomiting syndrome given the repetitive episodes where he feels normal in between each episode, last 1 to 3 days. He requested that the patient follow up in outpatient GI with Dr. Casillas to confirm eradication of H. pylori and it is possible to look into gastroparesis studies in the future. PHYSICAL EXAM ON DAY OF DISCHARGE: As documented per progress note. TIME SPENT: Thirty minutes was spent in the planning of this discharge with over half of that was spent directly at the bedside of the patient providing direct patient care. Plan of care was discussed with the patient who was with his mother and if there are any questions, he is to follow up in the clinic with GI and plans to follow up with primary care, continue supportive treatment, management, and lifestyle modifications to help Mr. Rod manage these frustrating and persistent symptoms was discussed thoroughly and he is stable for discharge to home. If there are any questions about the care of this patient during this hospitalization, please do not hesitate to reach out. [id number]/[facility] #: [id number] JAIRO
[2018-09-01 09:56] VITALS: BP 123/90
[2018-09-02] MEDS ORDERED: Scopolamine PATCH Remove* 1 NOTE MISC PATCH OFF SCH (20:30)
== END 2018-09-01 11:10 | disposition home or self-care (01) ==
LOC: ED 12:11 → MED 19:31
PROVIDERS: ADMIT Internal Medicine; ATTEND Internal Medicine
DX: R11.2 Nausea with vomiting, unspecified (principal); K21.9 Gastro-esophageal reflux disease without esophagitis; M54.5 Low back pain; Z86.19 Personal history of other infectious and parasitic diseases; F11.21 Opioid dependence, in remission; R00.1 Bradycardia, unspecified; E87.6 Hypokalemia; D64.9 Anemia, unspecified; K85.90 Acute pancreatitis without necrosis or infection, unspecified; Z87.891 Personal history of nicotine dependence; Z79.899 Other long term (current) drug therapy
CPT/HCPCS: 36415; 74019; 80053; 80307; 81003; 81015; 83605; 83690; 84484; 85025; 86140; 96372; 96374; 96375; 99282; A9270-GY; G0378; J0780; J1200; J1650; J2405; J2765; J3480

== ENCOUNTER 2018-10-06 14:58 | Observation (INO) | payer OTHER ==
--- OUTSIDE RECORDS SUMMARY | 2018-10-06 15:21 | XMS REPORT | Continuity of Care Document ---
:1965 External Reference #:[id number] Author Name Peter Lee M.D. Address [address] [facility] [address] [place] [address] Care Team Providers Name Role Phone HCP given Primary Care Physician Unavailable Payers Date Identification Numbers Payment Provider Subscriber Effective: Policy Number: [id number] [employer] (GIFTY Santoyo 2011 MGD) PayID: [id number] [address] [address] [place] [address] Problems Active Problems Provider Date Low back pain Peter Lee M.D. Onset: 06/06/2015 Degeneration of lumbar intervertebral disc Peter Lee M.D. Onset: 06/05 Anxiety state Peter Lee M.D. Onset: 06/06/2015 Opioid dependence, uncomplicated Peter Lee M.D. Onset: 06/06/2015 Vitamin D deficiency Peter Lee M.D. Onset: 09/17/2017 Gastro-esophageal reflux disease with Peter Lee M.D. 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 [employer] Tobacco Use Start: Unknown End: Former Cigarette Smoker quit at age 46; Unknown smoked ~1.5ppwk and only for a couple of years (had started in his early 40s) ETOH Use 05/01/2015 Denies alcohol use Tobacco Use Start: Unknown End: Patient is a former Unknown smoker Smoking Status Reviewed: 09/11/18 Patient is a former smoker Age 1st Mott 20 Years Old # Partners in a Partners 5-10 Lifetime Additional Info Sexual preference is women Allergies, Adverse Reactions, Alerts Description No Known Drug Allergies Medications Active Medications SIG Qnty Indications Ordering Provider Date Omeprazole Take One Capsule K21.0 Unknown 03/27/2018 40mg By Mouth Every Capsules DR Morning Vitamin D3 1 capsule daily E55.9 Unknown 09/16/2017 5000Unit Capsules Suboxone 1/2 film by mouth 45units M54.5 Peter Lee, 09/26/2015 8-2mg Film 3x/day; suboxone M.DMartin prescriber# [id number]; may fill on 08/15/18 M51.36 F11.20 Gabapentin Take One Capsule By 90caps M54.5 Peter Lee, 04/15/2015 300mg Capsules Mouth Three Times A M.D. Day For Pain M51.36 Hydroxyzine HCL Take One To Two 200tabs Peter Lee, 03/28/2015 25mg Tablets Tablets By Mouth M.DMartin Four Times A Day as Needed For Anxiety History Medications Ondansetron dissolve one 10tabs R11.2 Jesus, 06/30/2018 - 4mg Tablets Dispers tablet on the Yoseph Green 07/07/2018 tongue up to 3x/day as needed for nausea Ranitidine HCL take one tablet 30tabs R11.2 Jesus, 11/17/2017 - 300mg Tablets by mouth up to Yoseph Green 06/02/2018 once a day as needed for acid dyspepsia and nausea Methylprednisolone as Directed Verónica Harley 03/12/2017 - 4mg HAN VEGA 03/21/2017 Escitalopram Oxalate 1 by mouth every 14tabs F34.1 Jesus, 07/04/2015 - 5mg day for 2 weeks Yoseph Green 07/18/2015 Tablets then stop it; for mood F41.9 Escitalopram Oxalate 1 po daily 30tabs F34.1 Unknown 07/03/2015 - 2015 10mg Tablets F41.9 Suboxone 1/2 film by mouth 30units M54.5 Peter Lee, 05/06/2015 - 8-2mg 2x/day; maggioxone Yoseph 09/26/2015 Film prescriber# [id number]; may fill rx 09/05/15 M51.36 F11.20 Suboxone 1 film 2x/day for M54.5 Unknown 04/12/2015 - 05/06/2015 2-0.5mg Film chronic pain and opiate dependence M51.36 F11.20 Escitalopram Oxalate 1 po daily F34.1 Unknown 03/28/2015 - 07/03/2015 20mg Tablets Medications Administered in Office Medication SIG Qnty Indications Ordering Provider Date Injection Of Phenergan 50 mg Peter Lee M.D. 06/30/2018 Injection SC/Im Injections Peter Lee M.D. 06/30/2018 Injection Immunizations CPT Code Status Date Vaccine Lot # [id number] Given 11/17/2017 Shingrix Zoster (Shingles) Vaccine (HZV) [id number] Recomb,Subnit,Adjuvanted [id number] Refused 11/20/2016 Influenza Virus Vaccine, Quadrivalent, Split, Preservative Free [id number] Refused 12/19/2015 Influenza Virus Vaccine, Quadrivalent, Split, Preservative Free Vital Signs Date Vital Result Comment 09/11/2018 12:51pm BP Systolic 118 mmHg BP Diastolic 82 mmHg Weight 190.00 lb 07/29/2018 12:08pm BP Systolic 120 mmHg BP Diastolic 86 mmHg Height 70 inches 5'10" Weight 199.00 lb BMI (Body Mass Index) 28.6 kg/m2 06/30/2018 11:30am BP Systolic 120 mmHg BP Diastolic 84 mmHg Heart Rate 72 /min reg Respiratory Rate 12 /min not laboured Body Temperature 98.4 F Weight 198.00 lb 06/03/2018 10:32am BP Systolic 124 mmHg BP Diastolic 82 mmHg Weight 202.00 lb 04/01/2018 10:37am BP Systolic 128 mmHg BP Diastolic 84 mmHg Weight 194.00 lb 01/27/2018 9:31am BP Systolic 130 mmHg BP Diastolic 80 mmHg Height 70 inches 5'10" Weight 192.50 lb BMI (Body Mass Index) 27.6 kg/m2 11/17/2017 10:51am BP Systolic 130 mmHg BP Diastolic 90 mmHg Weight 189.00 lb 09/17/2017 1:39pm BP Systolic 132 mmHg BP Diastolic 82 mmHg Weight 196.00 lb 2017 11:08am BP Systolic 122 mmHg BP Diastolic 84 mmHg Weight 199.00 lb with shoes 05/21/2017 12:32pm BP Systolic 122 mmHg BP Diastolic 86 mmHg Height 70 inches 5'10" Weight 199.00 lb BMI (Body Mass Index) 28.6 kg/m2 03/19/2017 11:47am BP Systolic 120 mmHg BP Diastolic 82 mmHg Weight 205.00 lb 01/22/2017 11:08am BP Systolic 114 mmHg BP Diastolic 76 mmHg Weight 207.00 lb 11/20/2016 11:36am BP Systolic 122 mmHg BP Diastolic 82 mmHg Height 69.50 inches 5'9.50" Weight 211.00 lb BMI (Body Mass Index) 30.7 kg/m2 09/18/2016 11:46am BP Systolic 120 mmHg BP Diastolic 80 mmHg Weight 218.00 lb 07/17/2016 11:22am BP Systolic 122 mmHg BP Diastolic 85 mmHg Weight 217.00 lb 05/22/2016 11:43am BP Systolic 118 mmHg BP Diastolic 80 mmHg Weight 217.00 lb 04/17/2016 11:59am BP Systolic 128 mmHg BP Diastolic 90 mmHg Height 72.5 inches 6'0.50" Weight 219.00 lb BMI (Body Mass Index) 29.3 kg/m2 03/19/2016 1:38pm BP Systolic 124 mmHg BP Diastolic 80 mmHg Weight 220.00 lb 02/20/2016 11:31am BP Systolic 120 mmHg BP Diastolic 80 mmHg Weight 216.00 lb 01/16/2016 12:17pm BP Systolic 120 mmHg BP Diastolic 80 mmHg Weight 218.00 lb 12/19/2015 11:51am BP Systolic 132 mmHg BP Diastolic 84 mmHg Weight 220.00 lb w/shoes 11/22/2015 2:25pm BP Systolic 120 mmHg BP Diastolic 82 mmHg Weight 215.00 lb 10/24/2015 1:58pm BP Systolic 120 mmHg BP Diastolic 80 mmHg Height 70 inches 5'10" Weight 212.00 lb BMI (Body Mass Index) 30.4 kg/m2 09/26/2015 2:20pm BP Systolic 116 mmHg BP Diastolic 82 mmHg Weight 211.00 lb 08/29/2015 2:45pm BP Systolic 120 mmHg BP Diastolic 80 mmHg Weight 211.00 lb 08/01/2015 1:52pm BP Systolic 116 mmHg BP Diastolic 78 mmHg Weight 217.00 lb 07/04/2015 2:32pm BP Systolic 110 mmHg BP Diastolic 76 mmHg Weight 209.00 lb 06/06/2015 2:53pm BP Systolic 118 mmHg BP Diastolic 78 mmHg Weight 199.00 lb 05/06/2015 10:34am BP Systolic 120 mmHg BP Diastolic 80 mmHg 05/01/2015 2:13pm BP Systolic 124 mmHg BP Diastolic 86 mmHg Height 69.50 inches 5'9.50" Weight 205.00 lb BMI (Body Mass Index) 29.8 kg/m2 Results Test Date Facility Test Result H/L Range Note Urine Drug 08/30/2018 [facility] Urine None Detected None Detect SCR ED & [phone] Amphetamine Pain Clinic Screen Urine Barbiturates Screen None Detected None Detect Urine Benzodiazepine Screen None Detected None Detect Urine Cannabinoids Screen Presumptive Posi <SEE NOTE> Abnormal None Detect 1 Urine Cocaine Screen None Detected None Detect Urine Opiates Screen None Detected None Detect Urine Phencyclidine Screen None Detected None Detect 2 CBC Auto Diff 08/30/2018 [facility] White Blood Count 8.0 10^3/uL N 3.5-10.8 [phone] Red Blood Count 4.30 10^6/uL N 4.18-5.48 Hemoglobin 12.7 g/dL Low 14.0-18.0 Hematocrit 38 % Low 42-52 Mean Corpuscular Volume 88 fL N 80-94 Mean Corpuscular Hemoglobin 30 pg N 27-31 Mean Corpuscular HGB Conc 34 g/dL N 31-36 Red Cell Distribution Width 14 % N 10.5-15 Platelet Count 336 10^3/uL N 150-450 Mean Platelet Volume 9.3 fL N 7.4-10.4 Abs Neutrophils 6.7 10^3/uL N 1.5-7.7 Abs Lymphocytes 1.0 10^3/uL N 1.0-4.8 Abs Monocytes 0.3 10^3/uL N 0-0.8 Abs Eosinophils 0.0 10^3/uL N 0-0.6 Abs Basophils 0.0 10^3/uL N 0-0.2 Abs Nucleated RBC 0.0 10^3/uL Granulocyte % 83.2 % Lymphocyte % 12.3 % Monocyte % 4.2 % Eosinophil % 0.1 % Basophil % 0.2 % Nucleated Red Blood Cells % 0.0 Laboratory test finding 08/30/2018 [facility] Lactic Acid 1.0 mmol/L N 0.5-2.0 3 [phone] Comp Metabolic Panel 08/30/2018 [facility] Sodium 138 mmol/L N 135- 145 [phone] Potassium 3.4 mmol/L Low 3.5-5.0 Chloride 103 mmol/L N 101-111 Co2 Carbon Dioxide 28 mmol/L N 22-32 Anion Gap 7 mmol/L N 2-11 Glucose 112 mg/dL High 70-100 Blood Urea Nitrogen 14 mg/dL N 6-24 Creatinine 1.03 mg/dL N 0.67-1.17 BUN/Creatinine Ratio 13.6 N 8-20 Calcium 9.2 mg/dL N 8.6-10.3 Total Protein 7.1 g/dL N 6.4-8.9 Albumin 4.6 g/dL N 3.2-5.2 Globulin 2.5 g/dL N 2-4 Albumin/Globulin Ratio 1.8 N 1-3 Total Bilirubin 0.80 mg/dL N 0.2-1.0 Alkaline Phosphatase 29 U/L Low 34-104 Alt 16 U/L N 7-52 Ast 31 U/L N 13-39 Egfr Non- 76.1 >60 Egfr 92.1 >60 4 Laboratory test finding 08/30/2018 [facility] Lipase < 10 U/L Low 11.0-82.0 [phone] C Reactive Protein < 1.00 mg/L N <8.01 Troponin-I (TnI) 0.00 ng/mL <0.04 5 Urinalysis Profile 08/30/2018 [facility] Urine Color Yellow [phone] Urine Appearance Clear Urine Specific [place] 1.029 N 1.010-1.030 Urine pH 5.0 N 5-9 Urine Urobilinogen Negative Negative Urine Ketones 2+ Abnormal Negative Urine Protein 1+(30 mg/dL) Abnormal Negative Urine Leukocytes Negative Negative Urine Blood 1+ Abnormal Negative Urine Nitrite Negative Negative Urine Bilirubin Negative Negative Urine Glucose Negative Negative Urine White Blood Cell Absent Absent Urine Red Blood Cell 2+(6-10/hpf) Abnormal Absent Urine Bacteria Absent Absent Urine Squamous Epithelial Cell Present Abnormal Absent CBC Auto Diff 08/28/2018 [facility] White Blood Count 6.4 10^3/uL N 3.5-10.8 [phone] Red Blood Count 4.33 10^6/uL N 4.18-5.48 Hemoglobin 12.8 g/dL Low 14.0-18.0 Hematocrit 38 % Low 42-52 Mean Corpuscular Volume 89 fL N 80-94 Mean Corpuscular Hemoglobin 30 pg N 27-31 Mean Corpuscular HGB Conc 34 g/dL N 31-36 Red Cell Distribution Width 15 % N 10.5-15 Platelet Count 329 10^3/uL N 150-450 Mean Platelet Volume 8.9 fL N 7.4-10.4 Abs Neutrophils 5.0 10^3/uL N 1.5-7.7 Abs Lymphocytes 1.2 10^3/uL N 1.0-4.8 Abs Monocytes 0.2 10^3/uL N 0-0.8 Abs Eosinophils 0.0 10^3/uL N 0-0.6 Abs Basophils 0.0 10^3/uL N 0-0.2 Abs Nucleated RBC 0.0 10^3/uL Granulocyte % 77.6 % Lymphocyte % 18.9 % Monocyte % 3.0 % Eosinophil % 0.0 % Basophil % 0.5 % Nucleated Red Blood Cells % 0.1 Comp Metabolic Panel 08/28/2018 [facility] Sodium 139 mmol/L N 135- 145 [phone] Potassium 3.4 mmol/L Low 3.5-5.0 Chloride 105 mmol/L N 101-111 Co2 Carbon Dioxide 23 mmol/L N 22-32 Anion Gap 11 mmol/L N 2-11 Glucose 119 mg/dL High 70-100 Blood Urea Nitrogen 15 mg/dL N 6-24 Creatinine 0.94 mg/dL N 0.67-1.17 BUN/Creatinine Ratio 16.0 N 8-20 Calcium 9.8 mg/dL N 8.6-10.3 Total Protein 7.7 g/dL N 6.4-8.9 Albumin 5.0 g/dL N 3.2-5.2 Globulin 2.7 g/dL N 2-4 Albumin/Globulin Ratio 1.9 N 1-3 Total Bilirubin 1.00 mg/dL N 0.2-1.0 Alkaline Phosphatase 33 U/L Low 34-104 Alt 12 U/L N 7-52 Ast 21 U/L N 13-39 Egfr Non- 84.6 >60 Egfr 102.4 >60 6 Laboratory 08/28/2018 [facility] Lipase 29 U/L N 11.0-82.0 test finding [phone] HIV 1/2 AB 03/26/2018 [facility] HIV 1 2 Nonreactive Nonreactive 7 Evaluation [phone] Antibody Laboratory 03/26/2018 [facility] Vitamin D Total 31.0 ng/mL N 20-50 test finding [phone] 25(Oh) Laboratory 03/26/2018 [facility] Surgical SEE RESULT 8 test finding [phone] Interface Order BELOW Laboratory 03/26/2018 [facility] Clotest SEE RESULT 9 test finding [phone] BELOW Urine Drug SCR 10/22/2017 [facility] Amphetamine Ur None Detected None Detect ED & Pain [phone] Screen Clinic Barbiturates Urine Screen None Detected None Detect Benzodiazepine Urine Screen None Detected None Detect Urine Cannabinoids Screen Presumptive Posi <SEE NOTE> Abnormal None Detect 10 Urine Cocaine Screen None Detected None Detect Urine Opiates Screen None Detected None Detect Urine Phencyclidine Screen None Detected None Detect 11 CBC Auto Diff 10/04/2017 [facility] White Blood Count 7.5 10^3/uL N 3.5-10.8 [phone] Red Blood Count 4.20 10^6/uL N 4.00-5.40 Hemoglobin 12.6 g/dL Low 14.0-18.0 Hematocrit 38 % Low 42-52 Mean Corpuscular Volume 89 fL N 80-94 Mean Corpuscular Hemoglobin 30 pg N 27-31 Mean Corpuscular HGB Conc 34 g/dL N 31-36 Red Cell Distribution Width 15 % N 10.5-15 Platelet Count 261 10^3/uL N 150-450 Mean Platelet Volume 9.6 um3 N 7.4-10.4 Abs Neutrophils 6.5 10^3/uL N 1.5-7.7 Abs Lymphocytes 0.8 10^3/uL Low 1.0-4.8 Abs Monocytes 0.2 10^3/uL N 0-0.8 Abs Eosinophils 0 10^3/uL N 0-0.6 Abs Basophils 0 10^3/uL N 0-0.2 Abs Nucleated RBC 0 10^3/uL Granulocyte % 86.4 % High 38-83 Lymphocyte % 11.1 % Low 25-47 Monocyte % 2.3 % N 0-7 Eosinophil % 0.1 % N 0-6 Basophil % 0.1 % N 0-2 Nucleated Red Blood Cells % 0.1 Comp Metabolic Panel 10/04/2017 [facility] Sodium 141 mmol/L N 135- 145 [phone] Potassium 3.3 mmol/L Low 3.5-5.0 Chloride 108 mmol/L N 101-111 Co2 Carbon Dioxide 24 mmol/L N 22-32 Anion Gap 9 mmol/L N 2-11 Glucose 133 mg/dL High 70-100 Blood Urea Nitrogen 15 mg/dL N 6-24 Creatinine 1.07 mg/dL N 0.67-1.17 BUN/Creatinine Ratio 14.0 N 8-20 Calcium 9.0 mg/dL N 8.6-10.3 Total Protein 6.6 g/dL N 6.4-8.9 Albumin 4.0 g/dL N 3.2-5.2 Globulin 2.6 g/dL N 2-4 Albumin/Globulin Ratio 1.5 N 1-3 Total Bilirubin 0.50 mg/dL N 0.2-1.0 Alkaline Phosphatase 23 U/L Low 34-104 Alt 12 U/L N 7-52 Ast 13 U/L N 13-39 Egfr Non- 73.2 >60 Egfr 88.5 >60 12 Laboratory test finding 10/04/2017 [facility] Lipase 35 U/L N 11.0- 82.0 [phone] C Reactive Protein < 1.00 mg/L N <8.01 Lactic Acid 2.1 mmol/L High 0.5-2.0 13 Urinalysis Profile 10/04/2017 [facility] Urine Color Yellow [phone] Urine Appearance Cloudy Urine Specific [place] 1.029 N 1.010-1.030 Urine pH 8.0 N 5-9 Urine Urobilinogen Negative Negative Urine Ketones 1+ Abnormal Negative Urine Protein 2+(100 mg/dL) Abnormal Negative Urine Leukocytes Negative Negative Urine Blood Negative Negative Urine Nitrite Negative Negative Urine Bilirubin Negative Negative Urine Glucose Negative Negative Urine White Blood Cell Absent Absent Urine Red Blood Cell Absent Absent Urine Bacteria Absent Absent Urine Yeast Present Abnormal Absent Urine Culture And 10/04/2017 [facility] Urine Culture SEE RESULT 14 Sensitivities [phone] BELOW Laboratory test 2017 In House Occult Blood, F positive finding I T Laboratory test 05/23/2017 [facility] Magnesium 1.8 mg/dL Low 1.9-2 finding [phone] C Reactive Protein 1.06 mg/L N < 5.00 15 Comp Metabolic Panel 05/23/2017 [facility] Sodium 137 mmol/L N 133- 145 [phone] Potassium 3.8 mmol/L N 3.5-5.0 Chloride 105 mmol/L N 101-111 Co2 Carbon Dioxide 24 mmol/L N 22-32 Anion Gap 8 mmol/L N 2-11 Glucose 120 mg/dL High 70-100 Blood Urea Nitrogen 11 mg/dL N 6-24 Creatinine 1.08 mg/dL N 0.67-1.17 BUN/Creatinine Ratio 10.2 N 8-20 Calcium 9.7 mg/dL N 8.6-10.3 Total Protein 7.7 g/dL N 6.4-8.9 Albumin 4.7 g/dL N 3.2-5.2 Globulin 3.0 g/dL N 2-4 Albumin/Globulin Ratio 1.6 N 1-3 Total Bilirubin 0.50 mg/dL N 0.2-1.0 Alkaline Phosphatase 33 U/L Low 34-104 Alt 13 U/L N 7-52 Ast 15 U/L N 13-39 Egfr Non- 72.7 >60 Egfr 93.5 >60 16 CBC Auto Diff 05/23/2017 [facility] White Blood Count 8.4 10^3/uL N 3.5-10.8 [phone] Red Blood Count 4.29 10^6/uL N 4.0-5.4 Hemoglobin 13.0 g/dL Low 14.0-18.0 Hematocrit 38 % Low 42-52 Mean Corpuscular Volume 89 fL N 80-94 Mean Corpuscular Hemoglobin 30 pg N 27-31 Mean Corpuscular HGB Conc 34 g/dL N 31-36 Red Cell Distribution Width 14 % N 10.5-15 Platelet Count 291 10^3/uL N 150-450 Mean Platelet Volume 10 um3 N 7.4-10.4 Abs Neutrophils 7.5 10^3/uL N 1.5-7.7 Abs Lymphocytes 0.7 10^3/uL Low 1.0-4.8 Abs Monocytes 0.1 10^3/uL N 0-0.8 Abs Eosinophils 0 10^3/uL N 0-0.6 Abs Basophils 0 10^3/uL N 0-0.2 Abs Nucleated RBC 0 10^3/uL Granulocyte % 89.5 % High 38-83 Lymphocyte % 8.7 % Low 25-47 Monocyte % 1.6 % N 1-9 Eosinophil % 0 % N 0-6 Basophil % 0.2 % N 0-2 Nucleated Red Blood Cells % 0.1 Laboratory test 05/22/2017 [facility] Rapid Influenza SEE RESULT 17 finding [phone] A B Antigen BELOW Rapid Influenza 05/22/2017 [facility] Influenza A NEGATIVE Negative 18 A & B Molecular [phone] Molecular Influenza B Molecular NEGATIVE Negative Urine Drug Screen Inhouse 01/22/2017 In House Ua Cocaine - Ua Opiates - Ua Amphetamines - Urine Methanphetamines - Urine Benzodiazepines QN [place] - Urine Oxycodone QL - Urine Drug Screen Inhouse 02/20/2016 In House Ua Cocaine - Ua Opiates - Ua Amphetamines - Urine Methanphetamines - Urine Benzodiazepines QN [place] - Urine Oxycodone QL - Urine Drug Screen Inhouse 08/01/2015 In House Ua Cocaine - Ua Opiates - Ua Amphetamines - Urine Methanphetamines - Urine Benzodiazepines QN [place] - Urine Oxycodone QL - Urine Drug Screen Inhouse 07/04/2015 In House Ua Cocaine - Ua Opiates - Ua Amphetamines - Urine Methanphetamines - Urine Benzodiazepines QN [place] - Urine Oxycodone QL - Urine Drug Screen Inhouse 06/06/2015 In House Ua Cocaine - Ua Opiates - Ua Amphetamines - Urine Methanphetamines - Urine Benzodiazepines QN [place] - Urine Oxycodone QL - 1 Presumptive Positive Presumptive positive results are unconfirmed. 2 The urine specimen was tested at the listed cutoffs: Drug class test level (ng/mL) Amphetamines 500 Barbiturates 200 Benzodiazepine metabolites 200 Cocaine metabolites 150 Cannabinoids 50 Opiates 300 Pcp 25 Specimen was received without chain of custody. Results should be used for medical purposes only. 3 [facility] Severe Sepsis and Septic Shock Management Bundle Measure requires all lactic acids initially measuring >2.0 mmol/L be repeated. 4 Because ethnic data is not always readily available, this report includes an eGFR for both -Americans and non- Americans. The National Kidney Disease Education Program (NKDEP) does not endorse the use of the MDRD equation for patients that are not between the ages of 18 and 70, are , have extremes of body size, muscle mass, or nutritional status, or are non- or non-. According to the National Kidney Foundation, irrespective of diagnosis, the stage of the disease is based on the level of kidney function: Stage Description GFR(mL/min/1.73 m(2)) 1 Kidney damage with normal or decreased GFR 90 2 Kidney damage with mild decrease in GFR 60-89 3 Moderate decrease in GFR 30-59 4 Severe decrease in GFR 15-29 5 Kidney failure <15 (or dialysis) 5 Troponin-I testing on Plasma Separator Tubes (PST) has a known false positive rate of 0.20-0.40%. All positive troponins reflex immediately to secondary confirmatory testing. Using the [employer] 800 Access Immunoassay systems, the 99th percentile upper reference limit was demonstrated to be < 0.03 ng/mL. 6 Because ethnic data is not always readily available, this report includes an eGFR for both -Americans and non- Americans. The National Kidney Disease Education Program (NKDEP) does not endorse the use of the MDRD equation for patients that are not between the ages of 18 and 70, are , have extremes of body size, muscle mass, or nutritional status, or are non- or non-. According to the National Kidney Foundation, irrespective of diagnosis, the stage of the disease is based on the level of kidney function: Stage Description GFR(mL/min/1.73 m(2)) 1 Kidney damage with normal or decreased GFR 90 2 Kidney damage with mild decrease in GFR 60-89 3 Moderate decrease in GFR 30-59 4 Severe decrease in GFR 15-29 5 Kidney failure <15 (or dialysis) 7 It is recognized that currently available assays for the detection of antibodies to HIV-1 and/or HIV-2 may not detect all infected individuals. HIV antibodies may be undetectable in some stages of the infection and in some clinical conditions. The performance of this assay has not been established for populations of infants or children. Assayed by Chemiluminescence Microparticle Immunoassay on the Siemens Advia Centaur CP. Values obtained with different methods or kits cannot be used interchangeably.The diagnostic specificity of the ADVIA Centaur 1/O/2 Enhanced assay in the low risk population was 99.90% (6052/6058) with a 95% confidence interval of 99.78 to 99.96%. 8 SEE RESULT BELOW Name: CARINA SANTOYO : [address]: Stephon Casillas DO Acct: [id number] Unit: [id number] AGE: 52 Location: ENDO Re03/26/18 SEX: M Status: DEP REF SPEC: [id number] BELA: 03/26/18-[address] [facility] [address]: Stephon Casillas DO REQ: [id number] RECD: 03/26/18-0717 STATUS: LES ROSALES DR: Peter Lee MD _ ORDERED: LEVEL 4/2 FINAL DIAGNOSIS 1. Duodenum, biopsy: -- Benign small intestinal mucosa with no significant pathologic abnormalities. -- No evidence of villous blunting or increased intraepithelial lymphocytes. 2. Esophagus, distal, biopsy: -- Benign squamous and columnar mucosa with chronic inflammation. -- Intestinal metaplasia is absent. -- Dysplasia is absent. 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 The specimen is received in formalin labeled, Biopsy Duodenum, and consists of two ying-pink irregular soft tissue fragments measuring 0.2 x 0.2 x 0.1 cm and 0.6 x 0.3 x 0.1 cm which are submitted entirely in one cassette. 2. The specimen is received in formalin labeled, Biopsy Distal Esophagus, and consists of a 0.5 by up to 0.3 x 0.2 cm ying-pink irregular soft tissue fragment which is submitted entirely in one cassette. CONTINUED ON NEXT PAGE DEPARTMENT OF PATHOLOGY, [address] [place] [address] Marco Gilliland M.D. Director [facility] # [id number] RUN DATE: 03/27/18 [facility] LAB LIVE PAGE 2 Patient: CARINA SANTOYO [id number] (Continued) GROSS DESCRIPTION (Continued) Signed by and Reported on: Nasra Garcia MD 03/27/18 1120 END OF REPORT DEPARTMENT OF PATHOLOGY, [address] [place] [address] Marco Gilliland M.D. Director [facility] # [id number] 9 SEE RESULT BELOW Name: CARINA SANTOYO : [address]: Stephon Casillas DO Acct: [id number] Unit: [id number] AGE: 52 Location: ENDO Re03/26/18 SEX: M Status: REG REF SPEC: [id number] BELA: 03/26/18-[address]: Stephon Casillas DO REQ: [id number] RECD: 03/26/18-1430 STATUS: COMP OTHR DR: Peter Lee MD _ SOURCE: [facility]: ORDERED: Clotest Procedure Result Reported Site Clotest Final 03/26/18- 1441 ML Clotest Positive * ML - Main Lab . END OF REPORT DEPARTMENT OF PATHOLOGY, [address] [place] [address] Marco Gilliland M.D. Director [facility] # [id number] 10 Presumptive Positive Presumptive positive results are unconfirmed. 11 The urine specimen was tested at the listed cutoffs: Drug class test level (ng/mL) Amphetamines 500 Barbiturates 200 Benzodiazepine metabolites 200 Cocaine metabolites 150 Cannabinoids 50 Opiates 300 Pcp 25 Specimen was received without chain of custody. Results should be used for medical purposes only. 12 Because ethnic data is not always readily available, this report includes an eGFR for both -Americans and non- Americans. The National Kidney Disease Education Program (NKDEP) does not endorse the use of the MDRD equation for patients that are not between the ages of 18 and 70, are , have extremes of body size, muscle mass, or nutritional status, or are non- or non-. According to the National Kidney Foundation, irrespective of diagnosis, the stage of the disease is based on the level of kidney function: Stage Description GFR(mL/min/1.73 m(2)) 1 Kidney damage with normal or decreased GFR 90 2 Kidney damage with mild decrease in GFR 60-89 3 Moderate decrease in GFR 30-59 4 Severe decrease in GFR 15-29 5 Kidney failure <15 (or dialysis) 13 Critical Result LACT:2.1 Called to [id number] at: 16:18:13 by:[id number] Read back by:[id number] WILLIE Severe Sepsis and Septic Shock Management Bundle Measure requires all lactic acids initially measuring >2.0 mmol/L be repeated. 14 SEE RESULT BELOW Name: CARINA SANTOYO : [address]: Alec Moreno MD Acct: [id number] Unit: [id number] AGE: 52 Location: ED Re10/04/17 SEX: M Status: DEP ER SPEC: [id number] BELA: 10/04/17-[address]: Mike Ellsworth MD REQ: [id number] RECD: 10/04/17 STATUS: COMP [facility] DR: Peter Lee MD _ SOURCE: URINE SPDESC: ORDERED: Urine Culture Procedure Result Reported Site Urine Culture Final 10/05/17- 1201 ML No Growth (<1,000 CFU/mL) * ML - Main Lab . END OF REPORT DEPARTMENT OF PATHOLOGY, [address] [place] [address] Marco Gilliland M.D. Director [facility] # [id number] 15 Acute inflammation: >10.00 16 Because ethnic data is not always readily available, this report includes an eGFR for both -Americans and non- Americans. The National Kidney Disease Education Program (NKDEP) does not endorse the use of the MDRD equation for patients that are not between the ages of 18 and 70, are , have extremes of body size, muscle mass, or nutritional status, or are non- or non-. According to the National Kidney Foundation, irrespective of diagnosis, the stage of the disease is based on the level of kidney function: Stage Description GFR(mL/min/1.73 m(2)) 1 Kidney damage with normal or decreased GFR 90 2 Kidney damage with mild decrease in GFR 60-89 3 Moderate decrease in GFR 30-59 4 Severe decrease in GFR 15-29 5 Kidney failure <15 (or dialysis) 17 SEE RESULT BELOW Name: CARINA SANTOYO : [address]: Karlie Bunn MD Acct: [id number] Unit: [id number] AGE: 51 Location: ED Re05/22/17 SEX: M Status: REG ER SPEC: [id number] BELA: 05/22/17-2257 [facility] DR: Karlie Bunn MD REQ: [id number] RECD: 05/22/17 STATUS: SHANTE ROSALES DR: [facility] Peter Lee MD _ SOURCE: [facility]: ORDERED: Flu A B Request Procedure Result Reported Site Rapid Influenza A B Request Final 05/23/17- 0304 ML Specimen received for Influenza A/B Molecular testing * ML - MAIN LAB ([facility]) . END OF REPORT * ML=Testing performed at Main Lab DEPARTMENT OF PATHOLOGY, [address] [place] [address] Marco Gilliland M.D. Director [facility] # [id number] 18 Mail Handler Equipment Operator: [id number] Procedures Date Code Description Status 06/30/2018 52903 SC/Im Injections Completed 03/26/2018 [id number] Colonoscopy Completed 05/21/2017 19034 Brief Emotional/Behav Assessment W/ Scoring Doc Per Completed Standard Inst Encounters Type Date Location Provider Dx Diagnosis Office Visit 09/11/2018 Main Office Peter Lee F11.20 Opioid dependence, 12:55p Yoseph uncomplicated M51.36 Other intervertebral disc degeneration, lumbar region M54.5 Low back pain K21.0 Gastro-esophageal reflux disease with esophagitis R11.2 Nausea with vomiting, unspecified B96.81 Helicobacter pylori as the cause of diseases classd elswhr Office Visit 07/29/2018 11:15a Main Office Jesus F11.20 Opioid Peter gutierrez M.D. uncomplicated M51.36 Other intervertebral disc degeneration, lumbar region M54.5 Low back pain K21.0 Gastro-esophageal reflux disease with esophagitis Office Visit 06/30/2018 11:15a Main Office Peter Lee, R11.2 Nausea with M.D. vomiting, unspecified R19.7 Diarrhea, unspecified R05 Cough A08.4 Viral intestinal infection, unspecified Office Visit 06/03/2018 10:30a Main Office Jesus Moses1.20 Opioid dependence, Yoseph Green uncomplicated M51.36 Other intervertebral disc degeneration, lumbar region M54.5 Low back pain K21.0 Gastro-esophageal reflux disease with esophagitis R11.2 Nausea with vomiting, unspecified B96.81 Helicobacter pylori as the cause of diseases classd [facility] Office Visit 04/01/2018 10:30a Main Office Jesus Moses1.20 Opioid dependencePeter M.D. uncomplicated M51.36 Other intervertebral disc degeneration, lumbar region M54.5 Low back pain K21.0 Gastro-esophageal reflux disease with esophagitis R11.2 Nausea with vomiting, unspecified E55.9 Vitamin D deficiency, unspecified B96.81 Helicobacter pylori as the cause of diseases classd [facility] Office Visit 01/27/2018 9:30a Main Office Jesus Moses1.20 Opioid dependencePeter M.D. uncomplicated M51.36 Other intervertebral disc degeneration, lumbar region M54.5 Low back pain R11.2 Nausea with vomiting, unspecified Z11.4 Encounter for screening for human immunodeficiency virus E55.9 Vitamin D deficiency, unspecified Office Visit 11/17/2017 10:15a Main Office Jesus F11.20 Opioid dependencePeter M.D. uncomplicated M79.672 Pain in left foot E55.9 Vitamin D deficiency, unspecified M51.36 Other intervertebral disc degeneration, lumbar region M54.5 Low back pain R11.2 Nausea with vomiting, unspecified Z12.11 Encounter for screening for malignant neoplasm of colon Z23 Encounter for immunization Z41.8 Encntr for oth proc for purpose oth [facility] Office Visit 09/17/2017 1:45p Main Office Jesus Moses1.Zachary Opioid dependencePeter M.D. uncomplicated M51.36 Other intervertebral disc degeneration, lumbar region M54.5 Low back pain M79.672 Pain in left foot M84.375D Stress fracture, left foot, subs for fx w routn heal E55.9 Vitamin D deficiency, unspecified Z23 Encounter for immunization Office Visit 2017 11:00a Main Office Peter Lee Z12.11 Encounter for M.DMartin screening for malignant neoplasm of colon F11.20 Opioid dependence, uncomplicated M51.36 Other intervertebral disc degeneration, lumbar region M54.5 Low back pain M79.672 Pain in left foot Z23 Encounter for immunization Office Visit 05/21/2017 11:45a Main Office Jesus F11.20 Opioid dependence, Yoseph Green uncomplicated M51.36 Other intervertebral disc degeneration, lumbar region M54.5 Low back pain S93.402A Sprain of unspecified ligament of left ankle, init encntr Z13.89 Encounter for screening for other disorder Office Visit 03/19/2017 11:45a Main Office Jesus F11.20 Opioid dependencePeter M.D. uncomplicated M51.36 Other intervertebral disc degeneration, lumbar region M54.5 Low back pain Office Visit 01/22/2017 11:15a Main Office Jesus F11.20 Opioid dependencePeter M.D. uncomplicated M51.36 Other intervertebral disc degeneration, lumbar region M54.5 Low back pain Office Visit 11/20/2016 11:15a Main Office Jesus F11.20 Opioid dependencePeter M.D. uncomplicated M51.36 Other intervertebral disc degeneration, lumbar region M54.5 Low back pain Z23 Encounter for immunization Office Visit 09/18/2016 11:15a Main Office Jesus F11.20 Opioid dependencePeter M.D. uncomplicated M51.36 Other intervertebral disc degeneration, lumbar region M54.5 Low back pain Office Visit 07/17/2016 11:00a Main Office Jesus F11.20 Opioid dependencePeter M.D. uncomplicated M51.36 Other intervertebral disc degeneration, lumbar region Office Visit 05/22/2016 11:00a Main Office Jesus F11.20 Opioid dependencePeter M.D. uncomplicated M54.5 Low back pain M51.36 Other intervertebral disc degeneration, lumbar region Office Visit 04/17/2016 11:30a Main Office Jesus F11.20 Opioid dependencePeter M.D. uncomplicated M54.5 Low back pain M51.36 Other intervertebral disc degeneration, lumbar region Office Visit 03/19/2016 1:30p Main Office Silcoff, F11.20 Opioid dependence, Yoseph Green uncomplicated M54.5 Low back pain M51.36 Other intervertebral disc degeneration, lumbar region Office Visit 02/20/2016 11:15a Main Office Silcoff F11.20 Opioid dependence, Yoseph Green uncomplicated M54.5 Low back pain M51.36 Other intervertebral disc degeneration, lumbar region Office Visit 01/16/2016 11:30a Main Office Silcoff, F11.20 Opioid dependence, Yoseph Green uncomplicated M54.5 Low back pain M51.36 Other intervertebral disc degeneration, lumbar region F34.1 Dysthymic disorder Office Visit 12/19/2015 11:30a Main Office Silcoff, M51.36 Other intervertebral Yoseph Green disc degeneration, lumbar region M54.5 Low back pain F11.20 Opioid dependence, uncomplicated Z71.89 Other specified counseling Office Visit 11/22/2015 1:45p Main Office Kristalcomundo, F11.20 Opioid dependence, Yoseph Green uncomplicated M51.36 Other intervertebral disc degeneration, lumbar region M54.5 Low back pain Office Visit 10/24/2015 1:30p Main Office Peter Lee M.D. M54.5 Low back pain M51.36 Other intervertebral disc degeneration, lumbar region F11.20 Opioid dependence, uncomplicated Office Visit 09/26/2015 1:45p Main Office Jesus F11.20 Opioid dependence, Yoseph Green uncomplicated M54.5 Low back pain M51.36 Other intervertebral disc degeneration, lumbar region Office Visit 08/29/2015 2:45p Main Office Kristalcoff F11.20 Opioid dependence, Yoseph Green uncomplicated M54.5 Low back pain M51.36 Other intervertebral disc degeneration, lumbar region Office Visit 08/01/2015 1:30p Main Office Kristalcoff F11.20 Opioid dependence, Yoseph Green uncomplicated M54.5 Low back pain M51.36 Other intervertebral disc degeneration, lumbar region F41.9 Anxiety disorder, unspecified F34.1 Dysthymic disorder Office Visit 07/04/2015 2:30p Main Office Silcoff, F11.20 Opioid dependence, Yoseph Green uncomplicated M54.5 Low back pain M51.36 Other intervertebral disc degeneration, lumbar region F41.9 Anxiety disorder, unspecified F34.1 Dysthymic disorder Office Visit 06/06/2015 2:30p Main Office Peter Lee M.D. M54.5 Low back pain M51.36 Other intervertebral disc degeneration, lumbar region F11.20 Opioid dependence, uncomplicated F41.9 Anxiety disorder, unspecified F34.1 Dysthymic disorder Office Visit 05/06/2015 10:00a Main Office Peter Lee M.D. M54.5 Low back pain M51.36 Other intervertebral disc degeneration, lumbar region F11.20 Opioid dependence, uncomplicated Office Visit 05/01/2015 2:00p Main Office Jesus F11.20 Opioid dependence, Yoseph Green uncomplicated F34.1 Dysthymic disorder F41.9 Anxiety disorder, unspecified M54.5 Low back pain M51.36 Other intervertebral disc degeneration, lumbar region Plan of Treatment Future Appointment(s):11/18/2018 11:00 am - Peter Lee M.D. at Main Ysyifq8909/11/2018 - Peter Lee M.D.F11.20 Opioid dependence, uncomplicatedFollow up:RTO 2 months (with Shingrix #2 if available)M51.36 Other intervertebral disc degeneration, lumbar dbvjhqB21.5 Low back painK21.0 Gastro- esophageal reflux disease with ffejewqxaqxH88.2 Nausea with vomiting, unspecifiedComments:per Dr CasillasB96.81 Helicobacter pylori [H. pylori] as the cause of diseases claComments:as above- awaiting Tx per Dr Casillas
[2018-10-06] MEDS ORDERED: Ondansetron INJ* 2 MG/ML VIAL IV ONE (18:27)
[2018-10-06] MEDS ORDERED: NS 0.9% 1000 ML** 2,000 ML IV ONE (18:27)
[2018-10-06] MEDS ORDERED: Famotidine IV* 10 MG/ML 2 ML (20 mg) IV ONE (18:27)
[2018-10-06] MEDS ORDERED: diPHENhydraMINE IV* 50 MG/ML 1 ml VIAL (BENADRYL) IV ONE (18:28)
[2018-10-06 18:57] LABS: ABS Lymphocytes 0.8 10^3/ul (1.0-4.8); ABS Monocytes 0.3 10^3/ul (0-0.8); ABS Neutrophils 11.9 10^3/ul (1.5-7.7); Hematocrit 39 % (42-52); Hemoglobin 13.3 g/dL (14.0-18.0); Lymphocyte % 6.1 %; Mean Corpuscular HGB Conc 34 g/dL (31-36); Mean Corpuscular Hemoglobin 30 pg (27-31); Mean Corpuscular Volume 88 fL (80-94); Mean Platelet Volume 9.1 fL (7.4-10.4); Nucleated Red Blood Cells % 0.1; Platelet Count 306 10^3/uL (150-450); Red Blood Count 4.46 10^6 /uL (4.18-5.48); Red Cell Distribution Width 15 % (10-15)
[2018-10-06] MEDS ORDERED: Lorazepam PYXIS KEY PRN (19:11)
[2018-10-06] MEDS ORDERED: LORazepam INJ* 2 MG/ML 1 ML VIAL IV PUSH ONE (19:11)
[2018-10-06] MEDS ORDERED: Pantoprazole IV* 40 MG IV ONE (19:11)
[2018-10-06] MEDS ORDERED: PROCHLORPERAZINE INJ 5 MG/ML 2 ML VIAL IV ONE (19:11)
[2018-10-06] MEDS ORDERED: NS 0.9% 1000 ML** 1,000 ML IV ONE (19:16)
[2018-10-06 19:25] LABS: ALT 12 U/L (7-52); AST 15 U/L (13-39); Albumin 4.6 g/dL (3.2-5.2); Albumin/Globulin Ratio 1.8 (1-3); Alkaline Phosphatase 30 U/L (34-104); Amylase 51 U/L (29-103); Anion Gap 9 mmol/L (2-11); BUN/Creatinine Ratio 12.6 (8-20); Blood Urea Nitrogen 12 mg/dL (6-24); C Reactive Protein < 1.00 mg/L (<8.01); CO2 Carbon Dioxide 24 mmol/L (22-32); Calcium 9.6 mg/dL (8.6-10.3); Chloride 108 mmol/L (101-111); EGFR African American 101.1 (>60); EGFR Non-African American 83.6 (>60); Globulin 2.6 g/dL (2-4); Glucose 126 mg/dL (70-100); Potassium 3.7 mmol/L (3.5-5.0); Sodium 141 mmol/L (135-145); Total Protein 7.2 g/dL (6.4-8.9)
--- NOTE | 2018-10-06 19:37 | ED ---
GI/ HPI - HPI Summary HPI Summary: 53-year-old male presents with nausea and vomiting today. 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 He did smoke marijunia last week. He is on suboxone but states has been taking and has not missed a dose. He states symptoms started with some epigastric pain. Does have a history of H. pylori. He states he tried some zofran at home but unable to get nausea vomiting under control. In the room he is retching. Denies any fevers. No chest pain or shortness breath. denies any urinary symptoms. He states that Ativan and nausea medication has working well in the past. He had episode of diarrhea today. has history of back pain and GERD. - History of Current Complaint Chief Complaint: EDNauseaVomitDiarrh Time Seen by Provider: 10/06/18 18:51 Stated Complaint: VOMITING Pain Intensity: 10 - Additional Pertinent History Primary Care Physician: [id number] - Allergy/Home Medications Allergies/Adverse Reactions: Allergies Allergy/AdvReac Type Severity Reaction Status Date / Time No Known Allergies Allergy Verified 10/06/18 15:12 Home Medications: Home Medications Omeprazole CAP (NF) [Prilosec CAP* 20 MG] 20 mg PO DAILY 10/06/18 [History Confirmed 10/06/18] PMH/Surg Hx/FS Hx/Imm Hx Endocrine/Hematology History: Reports: Hx Anemia Denies: Hx Diabetes Cardiovascular History: Denies: Hx Congestive Heart Failure, Hx Hypertension, Hx Pacemaker/ICD Respiratory History: Denies: Hx Asthma GI History: Reports: Hx Gall Bladder Disease, Hx Gastroesophageal Reflux Disease , Other GI Disorders - pancreatitis Musculoskeletal History: Reports: Hx Back Problems - chronic low back pain, Hx Orthopedic Injury - left shoulder injury Sensory History: Reports: Hx Contacts or Glasses - for reading Denies: Hx Hearing Aid Opthamlomology History: Reports: Hx Contacts or Glasses - for reading Psychiatric History: Reports: Hx Depression Denies: Hx Panic Disorder - Surgical History Surgery Procedure, Year, and Place: ACL REPAIR RT KNEE - Immunization History Date of Tetanus Vaccine: 09/15/2013 Infectious Disease History: No Infectious Disease History: Denies: Traveled Outside the [place] in Last 30 Days - Family History Known Family History: Negative: Hypertension - Social History Alcohol Use: None Hx Substance Use: Yes Substance Use Type: Reports: Marijuana, Prescribed Substance Use Comment - Amount & Last Used: oxycontin 10mg bid; suboxone 4mg TID Hx Tobacco Use: No Smoking Status (MU): Never Smoked Tobacco Review of Systems Negative: Fever Negative: Chest Pain Negative: Shortness Of Breath Positive: Abdominal Pain, Vomiting, Diarrhea, Nausea All Other Systems Reviewed And Are Negative: Yes Physical Exam Triage Information Reviewed: Yes Vital Signs On Initial Exam: Initial Vitals Temp Pulse Resp BP Pulse Ox 97.7 F 57 16 141/89 100 10/06/18 15:09 10/06/18 15:09 10/06/18 15:09 10/06/18 15:09 10/06/18 15:09 Vital Signs Reviewed: Yes Appearance: Positive: Well-Appearing Skin: Positive: Warm, Dry Head/Face: Positive: Normal Head/Face Inspection Eyes: Positive: Normal, Conjunctiva Clear ENT: Positive: Pharynx normal Respiratory/Lung Sounds: Positive: Clear to Auscultation, Breath Sounds Present Cardiovascular: Positive: Normal, RRR Abdomen Description: Positive: Soft, Other: - tenderness in epigastric region Bowel Sounds: Positive: Present Musculoskeletal: Positive: Normal Neurological: Positive: Normal Psychiatric: Positive: Normal Diagnostics - Vital Signs Vital Signs Temp Pulse Resp BP Pulse Ox 10/06/18 16:07 97.7 F 54 16 00/0 99 10/06/18 15:09 97.7 F 57 16 141/89 100 - Laboratory Lab Results: Lab Results 10/06/18 10/06/18 10/06/18 Range/Units 18:46 18:46 18:46 WBC 13.0 H (3.5-10.8) 10^3/uL RBC 4.46 (4.18-5.48) 10^6 /uL Hgb 13.3 L (14.0-18.0) g/dL Hct 39 L (42-52) % MCV 88 (80-94) fL MCH 30 (27-31) pg MCHC 34 (31-36) g/dL RDW 15 (10-15) % Plt Count 306 (150-450) 10^3/uL MPV 9.1 (7.4-10.4) fL Neut % (Auto) 91.4 % Lymph % (Auto) 6.1 % Gilchrist % (Auto) 2.1 % Eos % (Auto) 0.0 % Baso % (Auto) 0.4 % Absolute Neuts (auto) 11.9 H (1.5-7.7) 10^3/ul Absolute Lymphs (auto) 0.8 L (1.0-4.8) 10^3/ul Absolute Monos (auto) 0.3 (0-0.8) 10^3/ul Absolute Eos (auto) 0.0 (0-0.6) 10^3/ul Absolute Basos (auto) 0.0 (0-0.2) 10^3/ul Absolute Nucleated RBC 0.0 10^3/ul Nucleated RBC % 0.1 Sodium 141 (135-145) mmol/L Potassium 3.7 (3.5-5.0) mmol/L Chloride 108 (101-111) mmol/L Carbon Dioxide 24 (22-32) mmol/L Anion Gap 9 (2-11) mmol/L BUN 12 (6-24) mg/dL Creatinine 0.95 (0.67-1.17) mg/dL Est GFR ( Amer) 101.1 (>60) Est GFR (Non-Af Amer) 83.6 (>60) BUN/Creatinine Ratio 12.6 (8-20) Glucose 126 H (70-100) mg/dL Lactic Acid 2.9 H* (0.5-2.0) mmol/L Calcium 9.6 (8.6-10.3) mg/dL Total Bilirubin 0.60 (0.2-1.0) mg/dL AST 15 (13-39) U/L ALT 12 (7-52) U/L Alkaline Phosphatase 30 L (34-104) U/L C-Reactive Protein < 1.00 (<8.01) mg/L Total Protein 7.2 (6.4-8.9) g/dL Albumin 4.6 (3.2-5.2) g/dL Globulin 2.6 (2-4) g/dL Albumin/Globulin Ratio 1.8 (1-3) Amylase 51 (29-103) U/L Lipase 32 (11.0-82.0) U/L Result Diagrams: 10/06/18 18:46 10/06/18 18:46 Lab Statement: Any lab studies that have been ordered have been reviewed, and results considered in the medical decision making process. - Radiology abd Radiology Interpretation Completed By: ED Physician Summary of Radiographic Findings: no obstruction Re-Evaluation - Re-Evaluation First Eval Re-Evaluation Time: 21:08 Change: Unchanged Comment: no improvement with zofran Second Eval Change: Unchanged Comment: still nauseous, states mom wants him admitted Third Eval Change: Improved Comment: is falling asleep but still states is nausous Fourth Eval Re-Evaluation Time: 23:36 Comment: is a sleep in the room Fifth Eval Re-Evaluation Time: 00:55 Comment: patient states still feels sick and does not want to go home GIGU Course/Dx - Course Course Of Treatment: 53-year-old male presents with nausea and vomiting today. 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 He did smoke marijunia last week. He is on suboxone but states has been taking and has not missed a dose. He states symptoms started with some epigastric pain. Does have a history of H. pylori. He states he tried some zofran at home but unable to get nausea vomiting under control. In the room he is retching. Denies any fevers. No chest pain or shortness breath. denies any urinary symptoms. He states that Ativan and nausea medication has working well in the past. On exam has tenderness epigastric region. wbc elevated. Lactic elevated. Gave fluids Zofran and Pepcid with no relief. Gave Ativan and Compazine with some improvement. Gave haloperidol and patient feel asleep. Patient states that he wants to be admitted for such. abd xray no obstruction. patient feel asleep in the room but states that still feels unwell and does not want to go home. spoke with dr rivera who states get a CT scan to look for obstruction and call with results. patient will be signed out to dr bunn pending CT. - Diagnoses Differential Diagnoses - Male: Bowel Obstruction, Gastroenteritis (Viral), Vomiting Provider Diagnoses: Vomiting, Abdominal pain Discharge - Sign-Out/Discharge Documenting (check all that apply): Sign-Out Patient Signing out patient TO: Karlie Bunn - Discharge Plan Referrals: Peter Lee MD [Primary Care Provider] -
[2018-10-06] MEDS ORDERED: Lorazepam PYXIS KEY ONE (19:44)
[2018-10-06] MEDS ORDERED: Haloperidol INJ IV/IM* 5 MG/ML AMP IV SLOW PU ONE (21:10)
[2018-10-07] MEDS ORDERED: Iohexol 300* (CONTRAST) 10 ML SDV IV ONE (01:54)
--- NOTE | 2018-10-07 05:08 | ED ---
Progress - Progress Note Progress Note: Receiving sign-out from JAMAICA Grover pending CT Abdomen Pelvis. CT Abdomen Pelvis: 1. Oral contrast in the distal esophagus which may be due to reflux versus retention. 2. Apparent pericholecystic fat stranding. No calcified stones. If clinically warranted, further evaluation with ultrasound may be considered. ED Provider has reviewed this report. Dr. Gatica accepted the patient for admission. A plan was discussed with the patient and he was agreeable with this plan. Re-Evaluation - Re-Evaluation First Eval Re-Evaluation Time: 21:08 Change: Unchanged Comment: no improvement with zofran Second Eval Change: Unchanged Comment: still nauseous, states mom wants him admitted Third Eval Change: Improved Comment: is falling asleep but still states is nausous Fourth Eval Re-Evaluation Time: 23:36 Comment: is a sleep in the room Fifth Eval Re-Evaluation Time: 00:55 Comment: patient states still feels sick and does not want to go home Course/Dx - Course Course Of Treatment: Receiving sign-out from JAMAICA Grover pending CT Abdomen Pelvis. CT Abdomen Pelvis: 1. Oral contrast in the distal esophagus which may be due to reflux versus retention. 2. Apparent pericholecystic fat stranding. No calcified stones. If clinically warranted, further evaluation with ultrasound may be considered. ED Provider has reviewed this report. Dr. Gatica accepted the patient for admission. A plan was discussed with the patient and he was agreeable with this plan. - Diagnoses Provider Diagnoses: Cyclical vomiting Discharge - Sign-Out/Discharge Documenting (check all that apply): Patient Departure - Admission - Discharge Plan Condition: Stable Disposition: ADMITTED TO [facility] Referrals: Peter Lee MD [Primary Care Provider] - - Attestation Statements Document Initiated by Scribe: Yes Documenting Scribe: Tahir Cummings Provider For Whom Del is Documenting (Include Credential): Karlie Bunn MD Scribe Attestation: Tahir Leiva, scribed for Karlie Bunn MD on 10/07/18 at 0508. Status of Scribe Document: Ready
--- NOTE | 2018-10-07 05:47 | HP ---
History of Present Illness - History of Present Illness Reason for Visit: Nausea/Vomiting. History of Present Illness: 53yoM with GERD, Iron Deficiency anemia, Hx of H. Pylori, Pancreatitis, Chronic back pain, Anxiety, cyclical vomiting since over a year ago, multiple admission in past for vomiting last one being over a month ago here again for another episode of vomiting. Started on 10/06 at 2PM, started with episode of diarrhea/ upset stomach/abdominal pain which later turned to constipation later had headache and finally started having vomiting which never subsided. Most of his symptoms resolved with ER intervention except nausea which has persisted so patient is being admitted for intractable vomiting. Denies any chills now but states he had it when he first he came into ER. Last use of marijuana about a week ago. - Past Medical History Gastrointestinal: GERD, Other - Iron Deficiency anemia, Hx of H. Pylori, Pancreatitis, cyclical vomiting Psych: Anxiety, Addictions - Marijuana, Hx of pricription opiate now on suboxone Musculoskeletal: Chronic low back pain - Past Surgical History Past Surgical History: Other - Right Knee ACL repair. - Past Social History Smoke: Quit - 5 years ago quit smoking. Prior to had 2 years of smoking on and off. Alcohol: None - Used to drink in past but quit since his vomiting syndrome. Drugs: Marijuana Lives: With Family Review of Systems - Measurements Intake and Output: Intake and Output Last 24 Hours 10/04/18 10/05/18 10/06/18 10/07/18 06:59 06:59 06:59 06:59 Intake Total 3040 Balance 3040 Weight 200 lb Intake: IV Fluids 3040 - Review of Systems Constitutional Symptoms: Negative: Weakness, Fever Eyes: Negative: Change in Vision, Double Vision Pulmonary: Negative: Cough, Wheezing, Respiratory Distress, Shortness of Breath Cardiology: Negative: Chest Pain, Shortness of Breath Gastroenterology: Positive: Abdominal Pain, Nausea, Vomiting Neurology: Positive: Headache Objective Active Medications: Miscellaneous (Ativan Pyxis Mckeon) 1 ea N/A .ATIVAN IV MCKEON PRN PRN Reason: PYXIS MCKEON Vital Signs - 8 hr 10/06/18 10/06/18 10/06/18 21:57 22:26 23:29 Temperature Pulse Rate Respiratory Rate Blood Pressure 136/87 141/86 131/83 (mmHg) O2 Sat by Pulse 97 Oximetry 10/06/18 10/06/1810/06/19 23:44 23:46 23:56 Temperature Pulse Rate 56 49 50 Respiratory Rate Blood Pressure 143/82 110/81 (mmHg) O2 Sat by Pulse 97 98 94 Oximetry 10/07/18 10/07/18 10/07/18 00:04 00:06 00:26 Temperature Pulse Rate 171 Respiratory Rate Blood Pressure 123/73 127/83 (mmHg) O2 Sat by Pulse 82 Oximetry 10/07/18 10/07/18 10/07/18 00:56 01:26 01:56 Temperature Pulse Rate Respiratory Rate Blood Pressure 139/87 142/92 140/84 (mmHg) O2 Sat by Pulse Oximetry 10/07/18 10/07/18 10/07/18 02:26 02:56 03:26 Temperature 98.9 F 99.1 F Pulse Rate 61 52 Respiratory 14 16 Rate Blood Pressure 140/86 131/90 132/81 (mmHg) O2 Sat by Pulse 96 95 Oximetry 10/07/18 10/07/18 10/07/18 04:01 04:11 04:26 Temperature Pulse Rate 52 Respiratory Rate Blood Pressure 121/75 109/65 (mmHg) O2 Sat by Pulse 96 Oximetry 10/07/18 10/07/18 04:56 05:00 Temperature Pulse Rate 52 51 Respiratory Rate Blood Pressure 117/73 (mmHg) O2 Sat by Pulse 96 98 Oximetry Oxygen Devices in Use Now: None Eyes: No Scleral Icterus Ears/Nose/Mouth/Throat: NL Teeth, Lips, Gums Neck: NL Appearance and Movements; NL JVP Respiratory: Clear to Auscultation Cardiovascular: NL Sounds; No Murmurs; No JVD, RRR Abdominal: NL Sounds; No Tenderness; No Distention, No Hepatosplenomegaly Extremities: No Edema Skin: No Rash or Ulcers Neurological: Alert and Oriented x 3, NL Sensation, NL Muscle Strength and Tone Result Diagrams: 10/06/18 18:46 10/06/18 18:46 Additional Lab and Data: Lab Results 10/06/18 10/06/18 10/06/18 Range/Units 18:46 18:46 18:46 WBC 13.0 H (3.5-10.8) 10^3/uL RBC 4.46 (4.18-5.48) 10^6 /uL Hgb 13.3 L (14.0-18.0) g/dL Hct 39 L (42-52) % MCV 88 (80-94) fL MCH 30 (27-31) pg MCHC 34 (31-36) g/dL RDW 15 (10-15) % Plt Count 306 (150-450) 10^3/uL MPV 9.1 (7.4-10.4) fL Neut % (Auto) 91.4 % Lymph % (Auto) 6.1 % Haines % (Auto) 2.1 % Eos % (Auto) 0.0 % Baso % (Auto) 0.4 % Absolute Neuts (auto) 11.9 H (1.5-7.7) 10^3/ul Absolute Lymphs (auto) 0.8 L (1.0-4.8) 10^3/ul Absolute Monos (auto) 0.3 (0-0.8) 10^3/ul Absolute Eos (auto) 0.0 (0-0.6) 10^3/ul Absolute Basos (auto) 0.0 (0-0.2) 10^3/ul Absolute Nucleated RBC 0.0 10^3/ul Nucleated RBC % 0.1 Sodium 141 (135-145) mmol/L Potassium 3.7 (3.5-5.0) mmol/L Chloride 108 (101-111) mmol/L Carbon Dioxide 24 (22-32) mmol/L Anion Gap 9 (2-11) mmol/L BUN 12 (6-24) mg/dL Creatinine 0.95 (0.67-1.17) mg/dL Est GFR ( Amer) 101.1 (>60) Est GFR (Non-Af Amer) 83.6 (>60) BUN/Creatinine Ratio 12.6 (8-20) Glucose 126 H (70-100) mg/dL Lactic Acid 2.9 H* (0.5-2.0) mmol/L Calcium 9.6 (8.6-10.3) mg/dL Total Bilirubin 0.60 (0.2-1.0) mg/dL AST 15 (13-39) U/L ALT 12 (7-52) U/L Alkaline Phosphatase 30 L (34-104) U/L C-Reactive Protein < 1.00 (<8.01) mg/L Total Protein 7.2 (6.4-8.9) g/dL Albumin 4.6 (3.2-5.2) g/dL Globulin 2.6 (2-4) g/dL Albumin/Globulin Ratio 1.8 (1-3) Amylase 51 (29-103) U/L Lipase 32 (11.0-82.0) U/L Diagnostic Imaging: CT abdomen pelvis IMPRESSION: 1. Oral contrast in the distal esophagus which may be due to reflux versus retention. 2. Apparent pericholecystic fat stranding. No calcified stones. If clinically warranted, further evaluation with ultrasound may be considered. Assess/Plan/Problems-Billing Assessment: 53yoM with GERD, Iron Deficiency anemia, Hx of H. Pylori, Pancreatitis, Chronic back pain, Anxiety, cyclical vomiting since over a year ago, multiple admission in past for vomiting last one being over a month ago here again . CT shows some apparent pericholecystic fat stranding however clinically had benign abdomen. - Patient Problems (1) Hyperemesis Current Visit: No Status: Acute Code(s): R11.10 - VOMITING, UNSPECIFIED SNOMED Code(s): 646475786 Comment: Supportive care-Benadry, Compazine, Reglan, IVF. Consider GI Consult if symtoms don't improve. (2) GERD (gastroesophageal reflux disease) Current Visit: No Status: Acute Code(s): K21.9 - GASTRO-ESOPHAGEAL REFLUX DISEASE WITHOUT ESOPHAGITIS SNOMED Code(s): 818024736 Comment: S/P H Pylori tx, continue on H2, PPI (3) Chronic low back pain Current Visit: No Status: Acute Code(s): M54.5 - LOW BACK PAIN; G89.29 - OTHER CHRONIC PAIN SNOMED Code(s): 201736901 Comment: -On suboxone and bety (4) Opioid use disorder Current Visit: No Status: Acute Code(s): F11.99 - OPIOID USE, UNSP WITH UNSPECIFIED OPIOID-INDUCED DISORDER SNOMED Code(s): 0590745 Comment: On Suboxone (5) Leukocytosis Current Visit: Yes Status: Acute Code(s): D72.829 - ELEVATED WHITE BLOOD CELL COUNT, UNSPECIFIED SNOMED Code(s): 633372196 Comment: Likely due to hemoconcentration. Follow up repeat level. Allergies/Medications Medication: Ibuprofen TAB* [Advil TAB*] 800 mg PO TID PRN 08/10/12 [History Confirmed ] Buprenorphine HCl/Naloxone HCl [Buprenorp-Nalox 8-2 mg Sl Film] 0.5 film SL TID MDD 1.5 films 10/22/17 [History Confirmed 10/06/18] Calcium No.1/D3/B6/FA/B12/Aloe [Vitamin D3-Aloe 1,000 Unit Tab] 1 tab PO DAILY 10/22/17 [History Confirmed 10/06/18] Gabapentin CAP(*) [Neurontin 300 CAP(*)] 300 mg PO TID 10/22/17 [History Confirmed 10/06/18] Cholecalciferol (Vitamin D3) [Vitamin D3] 5,000 unit PO DAILY 03/17/18 [History Confirmed 10/06/18] hydrOXYzine HCL TAB* [Atarax 25 MG TAB*] 25 - 50 mg PO QID PRN 03/17/18 [ History Confirmed 10/06/18] Omeprazole CAP (NF) [Prilosec CAP* 20 MG] 20 mg PO DAILY 10/06/18 [History Confirmed 10/06/18] Allergies/Adverse Reactions: Allergies Allergy/AdvReac Type Severity Reaction Status Date / Time No Known Allergies Allergy Verified 10/06/18 15:12
[2018-10-07 06:06] LABS: Urine Appearance Cloudy; Urine Bilirubin Negative (Negative); Urine Blood Negative (Negative); Urine Color Yellow; Urine Glucose Negative (Negative); Urine Ketones 2+ (Negative); Urine Nitrite Negative (Negative); Urine Protein Negative (Negative); Urine Urobilinogen Negative (Negative)
[2018-10-07] MEDS ORDERED: diPHENhydraMINE PO* 25 MG PO PRN (06:21)
[2018-10-07] MEDS ORDERED: PROCHLORPERAZINE INJ 5 MG/ML 2 ML VIAL IV PRN (06:23)
[2018-10-07 06:25] LABS: Urine Benzodiazepine Screen None Detected (None Detect); Urine Opiates Screen None Detected (None Detect)
[2018-10-07 06:57] LABS: ABS Lymphocytes 1.2 10^3/ul (1.0-4.8); ABS Monocytes 0.2 10^3/ul (0-0.8); ABS Neutrophils 6.6 10^3/ul (1.5-7.7); Eosinophil % 0.2 %; Hematocrit 37 % (42-52); Hemoglobin 12.8 g/dL (14.0-18.0); Lymphocyte % 14.7 %; Mean Corpuscular HGB Conc 35 g/dL (31-36); Mean Corpuscular Hemoglobin 30 pg (27-31); Mean Corpuscular Volume 87 fL (80-94); Platelet Count 284 10^3/uL (150-450); Red Cell Distribution Width 15 % (10-15); White Blood Count 8.1 10^3/uL (3.5-10.8)
[2018-10-07 07:13] LABS: Albumin 4.4 g/dL (3.2-5.2); Albumin/Globulin Ratio 1.8 (1-3); BUN/Creatinine Ratio 8.2 (8-20); Calcium 9.2 mg/dL (8.6-10.3); Globulin 2.5 g/dL (2-4); Potassium 3.9 mmol/L (3.5-5.0); Total Bilirubin 0.7 mg/dL (0.2-1.0); Total Protein 6.9 g/dL (6.4-8.9)
[2018-10-07] MEDS: NS 0.9% 1000 ML** 1,000 ML IV SCH ×2 (09:37→21:32)
[2018-10-07] MEDS: Metoclopramide IV* 5 MG/ML 2 ML VIAL IV PRN ×2 (09:44→19:13)
[2018-10-07] MEDS: Pantoprazole TAB * 40 MG TAB PO SCH (09:47)
[2018-10-07] MEDS: hydrOXYzine HCL TAB* 25 MG PO PRN ×2 (09:47→19:37)
[2018-10-07] MEDS: Gabapentin CAP(*) 300 MG PO SCH ×3 (09:47→22:07)
[2018-10-07] MEDS: Buprenorp/Nalox 4-1 MG FILM SL FILM SCH ×4 (10:44→22:06)
[2018-10-07] MEDS: Cholecalciferol TAB* 1000 UNITS PO SCH (11:55)
[2018-10-07] MEDS ORDERED: Acetaminophen TAB* 325 MG PO PRN (12:28)
[2018-10-08] MEDS: hydrOXYzine HCL TAB* 25 MG PO PRN (00:46)
[2018-10-08] MEDS: NS 0.9% 1000 ML** 1,000 ML IV SCH (07:32)
[2018-10-08] MEDS: Pantoprazole TAB * 40 MG TAB PO SCH (09:33)
[2018-10-08] MEDS: Gabapentin CAP(*) 300 MG PO SCH ×2 (09:33→14:22)
[2018-10-08] MEDS: Cholecalciferol TAB* 1000 UNITS PO SCH (09:33)
[2018-10-08] MEDS: Buprenorp/Nalox 4-1 MG FILM SL FILM SCH ×2 (09:34→14:22)
[2018-10-08 11:47] VITALS: BP 113/68
--- NOTE | 2018-10-09 11:06 | DS ---
CC: Dr. Dial; Dr. Lee * DISCHARGE SUMMARY: DATE OF ADMISSION: 10/07/18 DATE OF DISCHARGE: 10/08/18 PRINCIPAL DISCHARGE DIAGNOSIS: Intractable nausea and vomiting. SECONDARY DISCHARGE DIAGNOSES: 1. Gastroesophageal reflux disease. 2. History of Helicobacter pylori. 3. History of pancreatitis. 4. History of opiate dependence, now on Suboxone. PHYSICAL EXAM AT DISCHARGE: Temperature 98.7, heart rate 46, respiratory rate 16, pulse ox 98% on room air, blood pressure 113/68. General: Alert, well- appearing young man, in no distress. He is resting comfortably in his bed and is nontoxic appearing. HEENT: Pupils equal, round, and reactive to light. Oral mucosa is moist. Neck: No JVP. No adenopathy. Chest: He is bradycardic , in regular rhythm with no murmurs. Lungs: Clear bilaterally. Abdomen: Soft , nontender, nondistended. No guarding or rebound. Bowel sounds are normoactive. Extremities: No edema, rashes, or ulcers. Neurologic: Oriented x3, pleasant. Gait is normal. PERTINENT IMAGING FROM THIS HOSPITALIZATION: An abdomen and pelvis CT was done on 10/07/18 which showed oral contrast in the distal esophagus which may be due to reflux versus retention and apparent pericholecystic fat stranding, no calcified stones; if clinically warranted, further evaluation with ultrasound may be considered. HOSPITAL COURSE BY PROBLEMS: 1. Intractable nausea and vomiting. Differential includes cannabinoid hyperemesis versus gastroparesis versus reflux. He was treated with supportive care and improved quickly. His diet was able to be advanced on the day of discharge to a full diet and he felt very well and had no further pain, nausea, or vomiting. Of note, his CT scan did show some concern for pericholecystic fluid, however, he had a negative Adams sign, his liver function tests were all normal, his pain was never in the right upper quadrant, he was afebrile, and this was not deemed to be pertinent to his current situation, so this was not further evaluated with a right upper quadrant ultrasound. He says that he has attempted cannabinoid abstinence in the past with no relief in his symptoms , so he has no intension of stopping marijuana. Gastric emptying study may be warranted in the future. He has followup with GI in 2 weeks. 2. History of H. pylori. He was treated, but did not follow up for his breath test to confirm eradication. He has an appointment with Dr. Dial in 2 weeks and says he will follow up with him. 3. History of opiate disorder, now on Suboxone. Again, this may be contributing to his impaired gastric emptying and gastroparesis. Gastric emptying study may be considered. 4. Disposition. Terrence was discharged to home on 10/08/18 in good condition. [id number]/CPS #: [id number] MTDD
== END 2018-10-08 14:35 | disposition home or self-care (01) | DRG 254 ==
LOC: ED 14:58 → INTOOBSV 10-07 06:17 → SSU 10-07 06:17
PROVIDERS: ADMIT Internal Medicine; ATTEND Internal Medicine
DX: K31.84 Gastroparesis (principal); G43.A1 Cyclical vomiting, in migraine, intractable; K21.9 Gastro-esophageal reflux disease without esophagitis; D50.9 Iron deficiency anemia, unspecified; F41.9 Anxiety disorder, unspecified; G89.29 Other chronic pain; M54.5 Low back pain; F11.99 Opioid use, unspecified with unspecified opioid-induced disorder; D72.829 Elevated white blood cell count, unspecified; R19.7 Diarrhea, unspecified; F32.9 Major depressive disorder, single episode, unspecified; Z87.891 Personal history of nicotine dependence
CPT/HCPCS: 36415; 74019; 74177; 80053; 80307; 81003; 82150; 83605; 83690; 85025; 86140; 99285; A9270-GY; J0780; J1200; J1630; J2060; J2405; J2765; Q9967

== ENCOUNTER 2018-12-06 12:46 | Observation (INO) | payer SELFPAY ==
[2018-12-06] MEDS ORDERED: NS 0.9% 1000 ML** 1,000 ML IV ONE ×2 (12:53→15:15)
[2018-12-06] MEDS ORDERED: Ondansetron INJ* 2 MG/ML VIAL IV ONE (12:53)
--- OUTSIDE RECORDS SUMMARY | 2018-12-06 13:08 | XMS REPORT | Continuity of Care Document ---
:1965 External Reference #:[id number] Author Name Peter Lee M.D. Address [address] [place] [address] [address] [place] [address] Care Team Providers Name Role Phone HCP given Care Team Information Electric Dolly Operator Unavailable Verónica Harley MD - Sports Medicine Care Team Information Electric Dolly Operator [facility] - Care Team Information Electric Dolly Operator [phone] [facility] - Care Team Information Electric Dolly Operator [phone] Gastroenterology Problems Active Problems Provider Date Low back pain Peter Lee M.D. Onset: 06/06/2015 Degeneration of lumbar intervertebral disc Peter Lee M.D. Onset: 06/05 Anxiety state Peter Lee M.D. Onset: 06/06/2015 Opioid dependence, uncomplicated Peter Lee M.D. Onset: 06/06/2015 Vitamin D deficiency Peter Lee M.D. Onset: 09/17/2017 Gastro-esophageal reflux disease with Peter Lee M.D. Onset: 04/01/2018 esophagitis Social History Type Date Description Comments Sex Unknown Tobacco Use Start: Unknown End: Former Cigarette Smoker quit at age 46; smoked Unknown ~1.5ppwk and only for a couple of years (had started in his early 40s) ETOH Use 05/01/2015 Denies alcohol use Tobacco Use Start: Unknown End: Patient is a former smoker Unknown Smoking Status Reviewed: 09/11/18 Patient is a former smoker Allergies, Adverse Reactions, Alerts Description No Known Drug Allergies Medications Active Medications SIG Qnty Indications Ordering Date Provider Paroxetine HCL 1/2 tablet daily 30tabs F41.0 Jesus, 11/18/2018 20mg Tablets to start; increase Peter, M.D. to 1 daily after 1 week; for anxiety/panic Prochlorperazine insert one 12units R11.2 Jesus, 08/29/2018 25mg suppository Yoseph Green Suppository rectally every 12 hours as needed for nausea Omeprazole Take One Capsule K21.0 Unknown 03/27/[address] By Mouth Every Morning Vitamin D3 1 capsule daily E55.9 Unknown 09/16/2017 5000Unit Capsules Suboxone 1/2 film by mouth 45units M54.5 Jesus, 09/26/2015 8-2mg Film 3x/day; suboxone Yoseph Green prescriber# [id number]; may fill on 10/14/18 M51.36 F11.20 Gabapentin Take One Capsule By 90caps M54.5 Peter Lee, 04/15/2015 300mg Capsules Mouth Three Times A M.D. Day For Pain M51.36 Hydroxyzine HCL Take One To Two 200tabs Peter Lee, 03/28/2015 25mg Tablets Tablets By Mouth M.D. Four Times A Day as Needed For Anxiety History Medications Ondansetron dissolve one 10tabs R11.2 Peter Lee, 06/30/2018 - 4mg tablet on the M.D. 07/07/2018 Tablets Dispers tongue up to 3x/day as needed for nausea Medications Administered in Office Medication SIG Qnty Indications Ordering Provider Date Injection Of Phenergan 50 mg Peter Lee M.D. 06/30/2018 Injection SC/Im Injections Peter Lee M.D. 06/30/2018 Injection Immunizations CPT Code Status Date Vaccine Lot # [id number] Given 11/17/2017 Shingrix Zoster (Shingles) Vaccine (HZV) [id number] Recomb,Subnit,Adjuvanted [id number] Refused 11/20/2016 Influenza Virus Vaccine, Quadrivalent, Split, Preservative Free [id number] Refused 12/19/2015 Influenza Virus Vaccine, Quadrivalent, Split, Preservative Free Vital Signs Date Vital Result Comment 11/18/2018 11:00am BP Systolic 118 mmHg BP Diastolic 80 mmHg Weight 180.00 lb 09/11/2018 12:51pm BP Systolic 118 mmHg BP Diastolic 82 mmHg Weight 190.00 lb Results Test Date Facility Test Result H/L Range Note CBC Auto Diff 10/07/2018 [facility] White Blood 8.1 10^3/uL Normal 3.5-10.8 [phone] Count Red Blood Count 4.20 10^6/uL Normal 4.18-5.48 Hemoglobin 12.8 g/dL Low 14.0-18.0 Hematocrit 37 % Low 42-52 Mean Corpuscular Volume 87 fL Normal 80-94 Mean Corpuscular Hemoglobin 30 pg Normal 27-31 Mean Corpuscular HGB Conc 35 g/dL Normal 31-36 Red Cell Distribution Width 15 % Normal 10-15 Platelet Count 284 10^3/uL Normal 150-450 Mean Platelet Volume 9.0 fL Normal 7.4-10.4 Abs Neutrophils 6.6 10^3/uL Normal 1.5-7.7 Abs Lymphocytes 1.2 10^3/uL Normal 1.0-4.8 Abs Monocytes 0.2 10^3/uL Normal 0-0.8 Abs Eosinophils 0.0 10^3/uL Normal 0-0.6 Abs Basophils 0.0 10^3/uL Normal 0-0.2 Abs Nucleated RBC 0.0 10^3/uL Granulocyte % 81.9 % Lymphocyte % 14.7 % Monocyte % 2.9 % Eosinophil % 0.2 % Basophil % 0.3 % Nucleated Red Blood Cells % 0.0 Comp Metabolic Panel 10/07/2018 [facility] Sodium 137 mmol/L Normal 135-145 [phone] Potassium 3.9 mmol/L Normal 3.5-5.0 Chloride 104 mmol/L Normal 101-111 Co2 Carbon Dioxide 27 mmol/L Normal 22-32 Anion Gap 6 mmol/L Normal 2-11 Glucose 129 mg/dL High 70-100 Blood Urea Nitrogen 7 mg/dL Normal 6-24 Creatinine 0.85 mg/dL Normal 0.67-1.17 BUN/Creatinine Ratio 8.2 Normal 8-20 Calcium 9.2 mg/dL Normal 8.6-10.3 Total Protein 6.9 g/dL Normal 6.4-8.9 Albumin 4.4 g/dL Normal 3.2-5.2 Globulin 2.5 g/dL Normal 2-4 Albumin/Globulin Ratio 1.8 Normal 1-3 Total Bilirubin 0.70 mg/dL Normal 0.2-1.0 Alkaline Phosphatase 31 U/L Low 34-104 Alt 12 U/L Normal 7-52 Ast 15 U/L Normal 13-39 Egfr Non- 95.0 >60 Egfr 115.0 >60 1 Urine Drug 10/07/2018 [facility] Urine Amphetamine None Detected None Detect SCR ED & [phone] Screen Pain Clinic Urine Barbiturates Screen None Detected None Detect Urine Benzodiazepine Screen None Detected None Detect Urine Cannabinoids Screen Presumptive Posi <SEE NOTE> Abnormal None Detect 2 Urine Cocaine Screen None Detected None Detect Urine Opiates Screen None Detected None Detect Urine Phencyclidine Screen None Detected None Detect 3 Laboratory test 10/06/2018 [facility] Lactic Acid 1.2 mmol/L Normal 0.5-2.0 4 finding [phone] CBC Auto Diff 10/06/2018 [facility] White Blood 13.0 10^3/uL High 3.5 -10.8 [phone] Count Red Blood Count 4.46 10^6/uL Normal 4.18-5.48 Hemoglobin 13.3 g/dL Low 14.0-18.0 Hematocrit 39 % Low 42-52 Mean Corpuscular Volume 88 fL Normal 80-94 Mean Corpuscular Hemoglobin 30 pg Normal 27-31 Mean Corpuscular HGB Conc 34 g/dL Normal 31-36 Red Cell Distribution Width 15 % Normal 10-15 Platelet Count 306 10^3/uL Normal 150-450 Mean Platelet Volume 9.1 fL Normal 7.4-10.4 Abs Neutrophils 11.9 10^3/uL High 1.5-7.7 Abs Lymphocytes 0.8 10^3/uL Low 1.0-4.8 Abs Monocytes 0.3 10^3/uL Normal 0-0.8 Abs Eosinophils 0.0 10^3/uL Normal 0-0.6 Abs Basophils 0.0 10^3/uL Normal 0-0.2 Abs Nucleated RBC 0.0 10^3/uL Granulocyte % 91.4 % Lymphocyte % 6.1 % Monocyte % 2.1 % Eosinophil % 0.0 % Basophil % 0.4 % Nucleated Red Blood Cells % 0.1 Comp Metabolic Panel 10/06/2018 [facility] Sodium 141 mmol/L Normal 135-145 [phone] Potassium 3.7 mmol/L Normal 3.5-5.0 Chloride 108 mmol/L Normal 101-111 Co2 Carbon Dioxide 24 mmol/L Normal 22-32 Anion Gap 9 mmol/L Normal 2-11 Glucose 126 mg/dL High 70-100 Blood Urea Nitrogen 12 mg/dL Normal 6-24 Creatinine 0.95 mg/dL Normal 0.67-1.17 BUN/Creatinine Ratio 12.6 Normal 8-20 Calcium 9.6 mg/dL Normal 8.6-10.3 Total Protein 7.2 g/dL Normal 6.4-8.9 Albumin 4.6 g/dL Normal 3.2-5.2 Globulin 2.6 g/dL Normal 2-4 Albumin/Globulin Ratio 1.8 Normal 1-3 Total Bilirubin 0.60 mg/dL Normal 0.2-1.0 Alkaline Phosphatase 30 U/L Low 34-104 Alt 12 U/L Normal 7-52 Ast 15 U/L Normal 13-39 Egfr Non- 83.6 >60 Egfr 101.1 >60 5 Laboratory test finding 10/06/2018 [facility] Amylase 51 U/L Normal 29-103 [phone] Lipase 32 U/L Normal 11.0-82.0 C Reactive Protein < 1.00 mg/L Normal <8.01 Lactic Acid 2.9 mmol/L Critical high 0.5-2.0 6 Urinalysis Profile 10/06/2018 [facility] Urine Color Yellow [phone] Urine Appearance Cloudy Urine Specific Fonda 1.020 Normal 1.010-1.030 Urine pH 5.0 Normal 5-9 Urine Urobilinogen Negative Negative Urine Ketones 2+ Abnormal Negative Urine Protein Negative Negative Urine Leukocytes Negative Negative Urine Blood Negative Negative Urine Nitrite Negative Negative Urine Bilirubin Negative Negative Urine Glucose Negative Negative Urinalysis Profile 08/30/2018 [facility] Urine Color Yellow [phone] Urine Appearance Clear Urine Specific Fonda 1.029 Normal 1.010-1.030 Urine pH 5.0 Normal 5-9 Urine Urobilinogen Negative Negative Urine Ketones 2+ Abnormal Negative Urine Protein 1+(30 mg/dL) Abnormal Negative Urine Leukocytes Negative Negative Urine Blood 1+ Abnormal Negative Urine Nitrite Negative Negative Urine Bilirubin Negative Negative Urine Glucose Negative Negative Urine White Blood Cell Absent Absent Urine Red Blood Cell 2+(6-10/hpf) Abnormal Absent Urine Bacteria Absent Absent Urine Squamous Epithelial Cell Present Abnormal Absent Laboratory test finding 08/30/2018 [facility] Lipase < 10 U/L Low 11.0-82.0 [phone] C Reactive Protein < 1.00 mg/L Normal <8.01 Troponin-I (TnI) 0.00 ng/mL <0.04 7 Comp Metabolic Panel 08/30/2018 [facility] Sodium 138 mmol/L Normal 135-145 [phone] Potassium 3.4 mmol/L Low 3.5-5.0 Chloride 103 mmol/L Normal 101-111 Co2 Carbon Dioxide 28 mmol/L Normal 22-32 Anion Gap 7 mmol/L Normal 2-11 Glucose 112 mg/dL High 70-100 Blood Urea Nitrogen 14 mg/dL Normal 6-24 Creatinine 1.03 mg/dL Normal 0.67-1.17 BUN/Creatinine Ratio 13.6 Normal 8-20 Calcium 9.2 mg/dL Normal 8.6-10.3 Total Protein 7.1 g/dL Normal 6.4-8.9 Albumin 4.6 g/dL Normal 3.2-5.2 Globulin 2.5 g/dL Normal 2-4 Albumin/Globulin Ratio 1.8 Normal 1-3 Total Bilirubin 0.80 mg/dL Normal 0.2-1.0 Alkaline Phosphatase 29 U/L Low 34-104 Alt 16 U/L Normal 7-52 Ast 31 U/L Normal 13-39 Egfr Non- 76.1 >60 Egfr 92.1 >60 8 Laboratory test 08/30/2018 [facility] Lactic Acid 1.0 mmol/L Normal 0.5-2.0 9 finding [phone] CBC Auto Diff 08/30/2018 [facility] White Blood 8.0 10^3/uL Normal 3.5-10.8 [phone] Count Red Blood Count 4.30 10^6/uL Normal 4.18-5.48 Hemoglobin 12.7 g/dL Low 14.0-18.0 Hematocrit 38 % Low 42-52 Mean Corpuscular Volume 88 fL Normal 80-94 Mean Corpuscular Hemoglobin 30 pg Normal 27-31 Mean Corpuscular HGB Conc 34 g/dL Normal 31-36 Red Cell Distribution Width 14 % Normal 10.5-15 Platelet Count 336 10^3/uL Normal 150-450 Mean Platelet Volume 9.3 fL Normal 7.4-10.4 Abs Neutrophils 6.7 10^3/uL Normal 1.5-7.7 Abs Lymphocytes 1.0 10^3/uL Normal 1.0-4.8 Abs Monocytes 0.3 10^3/uL Normal 0-0.8 Abs Eosinophils 0.0 10^3/uL Normal 0-0.6 Abs Basophils 0.0 10^3/uL Normal 0-0.2 Abs Nucleated RBC 0.0 10^3/uL Granulocyte % 83.2 % Lymphocyte % 12.3 % Monocyte % 4.2 % Eosinophil % 0.1 % Basophil % 0.2 % Nucleated Red Blood Cells % 0.0 Urine Drug 08/30/2018 [facility] Urine Amphetamine None Detected None Detect SCR ED & [phone] Screen Pain Clinic Urine Barbiturates Screen None Detected None Detect Urine Benzodiazepine Screen None Detected None Detect Urine Cannabinoids Screen Presumptive Posi <SEE NOTE> Abnormal None Detect 10 Urine Cocaine Screen None Detected None Detect Urine Opiates Screen None Detected None Detect Urine Phencyclidine Screen None Detected None Detect 11 CBC Auto Diff 08/28/2018 [facility] White Blood 6.4 10^3/uL Normal 3.5-10.8 [phone] Count Red Blood Count 4.33 10^6/uL Normal 4.18-5.48 Hemoglobin 12.8 g/dL Low 14.0-18.0 Hematocrit 38 % Low 42-52 Mean Corpuscular Volume 89 fL Normal 80-94 Mean Corpuscular Hemoglobin 30 pg Normal 27-31 Mean Corpuscular HGB Conc 34 g/dL Normal 31-36 Red Cell Distribution Width 15 % Normal 10.5-15 Platelet Count 329 10^3/uL Normal 150-450 Mean Platelet Volume 8.9 fL Normal 7.4-10.4 Abs Neutrophils 5.0 10^3/uL Normal 1.5-7.7 Abs Lymphocytes 1.2 10^3/uL Normal 1.0-4.8 Abs Monocytes 0.2 10^3/uL Normal 0-0.8 Abs Eosinophils 0.0 10^3/uL Normal 0-0.6 Abs Basophils 0.0 10^3/uL Normal 0-0.2 Abs Nucleated RBC 0.0 10^3/uL Granulocyte % 77.6 % Lymphocyte % 18.9 % Monocyte % 3.0 % Eosinophil % 0.0 % Basophil % 0.5 % Nucleated Red Blood Cells % 0.1 Comp Metabolic Panel 08/28/2018 [facility] Sodium 139 mmol/L Normal 135-145 [phone] Potassium 3.4 mmol/L Low 3.5-5.0 Chloride 105 mmol/L Normal 101-111 Co2 Carbon Dioxide 23 mmol/L Normal 22-32 Anion Gap 11 mmol/L Normal 2-11 Glucose 119 mg/dL High 70-100 Blood Urea Nitrogen 15 mg/dL Normal 6-24 Creatinine 0.94 mg/dL Normal 0.67-1.17 BUN/Creatinine Ratio 16.0 Normal 8-20 Calcium 9.8 mg/dL Normal 8.6-10.3 Total Protein 7.7 g/dL Normal 6.4-8.9 Albumin 5.0 g/dL Normal 3.2-5.2 Globulin 2.7 g/dL Normal 2-4 Albumin/Globulin Ratio 1.9 Normal 1-3 Total Bilirubin 1.00 mg/dL Normal 0.2-1.0 Alkaline Phosphatase 33 U/L Low 34-104 Alt 12 U/L Normal 7-52 Ast 21 U/L Normal 13-39 Egfr Non- 84.6 >60 Egfr 102.4 >60 12 Laboratory test finding 08/28/2018 [facility] Lipase 29 U/L Normal 11.0-82.0 [phone] 1 Because ethnic data is not always readily [...] 15-29 5 Kidney failure <15 (or dialysis) 2 Presumptive Positive Presumptive positive results are unconfirmed. 3 The urine specimen was tested at the listed cutoffs: Drug class test level (ng/mL) Amphetamines 500 Barbiturates 200 Benzodiazepine metabolites 200 Cocaine metabolites 150 Cannabinoids 50 Opiates 300 Pcp 25 Specimen was received without chain of custody. Results should be used for medical purposes only. 4 [facility] Severe Sepsis and Septic Shock Management Bundle Measure requires all lactic acids initially measuring >2.0 mmol/L be repeated. 5 Because ethnic data is not always readily [...] 15-29 5 Kidney failure <15 (or dialysis) 6 Critical Result LACT:2.9 Called to [id number] at: 19:25:21 by:[id number] Read back by:[id number] [facility] Severe Sepsis and Septic Shock Management Bundle Measure requires all lactic acids initially measuring >2.0 mmol/L be repeated. 7 Troponin-I testing on Plasma Separator Tubes (PST) has a known false positive rate of 0.20-0.40%. All positive troponins reflex immediately to secondary confirmatory testing. Using the [employer] DxI 800 Access Immunoassay systems, the 99th percentile upper reference limit was demonstrated to be < 0.03 ng/mL. 8 Because ethnic data is not always readily [...] 15-29 5 Kidney failure <15 (or dialysis) 9 [facility] Severe Sepsis and Septic Shock Management Bundle Measure requires all lactic acids initially measuring >2.0 mmol/L be repeated. 10 Presumptive Positive Presumptive positive results are [...] 15-29 5 Kidney failure <15 (or dialysis) Procedures Date Code Description Status 06/30/2018 68021 SC/Im Injections Completed 03/26/2018 07689342 Colonoscopy Completed Medical Devices Description No Information Available Encounters Type Date Location Provider Dx Diagnosis Office Visit 11/18/2018 Main Office Peter Lee, F11.20 Opioid dependence, 11:00a M.D. uncomplicated M51.36 Other intervertebral disc degeneration, lumbar region M54.5 Low back pain K21.0 Gastro-esophageal reflux disease with esophagitis R11.2 Nausea with vomiting, unspecified F41.0 Panic disorder [episodic paroxysmal anxiety] Z23 Encounter for immunization Office Visit 09/11/2018 12:55p Main Office Jesus F11.20 Opioid dependencePeter M.D. uncomplicated M51.36 Other intervertebral disc degeneration, lumbar region M54.5 Low back pain K21.0 Gastro-esophageal reflux disease with esophagitis R11.2 Nausea with vomiting, unspecified B96.81 Helicobacter pylori as the cause of diseases classd elsr Office Visit 07/29/2018 11:15a Main Office Jesus F11.20 Opioid dependencePeter M.D. uncomplicated M51.36 Other intervertebral disc degeneration, lumbar region M54.5 Low back pain K21.0 Gastro-esophageal reflux disease with esophagitis Office Visit 06/30/2018 11:15a Main Office Peter Lee R11.2 Nausea with M.D. vomiting, unspecified R19.7 Diarrhea, unspecified R05 Cough A08.4 Viral intestinal infection, unspecified Office Visit 06/03/2018 10:30a Main Office Jesus F11.20 Opioid Peter gutierrez M.D. uncomplicated M51.36 Other intervertebral disc degeneration, lumbar region M54.5 Low back pain K21.0 Gastro-esophageal reflux disease with esophagitis R11.2 Nausea with vomiting, unspecified B96.81 Helicobacter pylori as the cause of diseases classd [facility] Ass[facility] Date Code Description Provider 11/18/2018 F11.20 Opioid dependence, uncomplicated Peter Lee M.D. 11/18/2018 M51.36 Other intervertebral disc degeneration, Peter Lee M.D. lumbar region 11/18/2018 M54.5 Low back pain Peter Lee M.D. 11/18/2018 K21.0 Gastro-esophageal reflux disease with Peter Lee M.D. esophagitis 11/18/2018 R11.2 Nausea with vomiting, unspecified Peter Lee M.D. 11/18/2018 F41.0 Panic disorder [episodic paroxysmal anxiety] Peter Lee M.D. 11/18/2018 Z23 Encounter for immunization Peter Lee M.D. 09/11/2018 F11.20 Opioid dependence, uncomplicated Peter Lee M.D. 09/11/2018 M51.36 Other intervertebral disc degeneration, Peter Lee M.D. lumbar region 09/11/2018 M54.5 Low back pain Peter Lee M.D. 09/11/2018 K21.0 Gastro-esophageal reflux disease with Peter Lee M.D. esophagitis 09/11/2018 R11.2 Nausea with vomiting, unspecified Peter Lee M.D. 09/11/2018 B96.81 Helicobacter pylori [H. pylori] as the cause Peter Lee M.D. of diseases cla 07/29/2018 F11.20 Opioid dependence, uncomplicated Peter Lee M.D. 07/29/2018 M51.36 Other intervertebral disc degeneration, Peter Lee M.D. lumbar region 07/29/2018 M54.5 Low back pain Peter Lee M.D. 07/29/2018 K21.0 Gastro-esophageal reflux disease with Peter Lee M.D. esophagitis 06/30/2018 R11.2 Nausea with vomiting, unspecified Peter Lee M.D. 06/30/2018 R19.7 Diarrhea, unspecified Peter Lee M.D. 06/30/2018 R05 Cough Peter Lee M.D. 06/30/2018 A08.4 Viral intestinal infection, unspecified Peter Lee M.D. 06/03/2018 F11.20 Opioid dependence, uncomplicated Peter Lee M.D. 06/03/2018 M51.36 Other intervertebral disc degeneration, Peter eLe M.D. lumbar region 06/03/2018 M54.5 Low back pain Peter Lee M.D. 06/03/2018 K21.0 Gastro-esophageal reflux disease with Peter Lee M.D. esophagitis 06/03/2018 R11.2 Nausea with vomiting, unspecified Peter Lee M.D. 06/03/2018 B96.81 Helicobacter pylori [H. pylori] as the cause Peter Lee M.D. of diseases cla Plan of Treatment Future Appointment(s):12/22/2018 11:15 am - Nurse's Schedule at Main [id number] 11:15 am - Peter Lee M.D. at Main Cwnshs3211/18/2018 - Peter Lee M.D.F11.20 Opioid dependence, sencfgkmtqutaY01.36 Other intervertebral disc degeneration, lumbar jfexecD83.5 Low back painK21.0 Gastro-esophageal reflux disease with lmnifoxnezeP84.2 Nausea with vomiting, kzyhdoclagbI95.0 Panic disorder [episodic paroxysmal anxiety]New Medication:Paroxetine HCL 20 mg - 1/2 tablet daily to start; increase to 1 daily after 1 week; for anxiety/ panicComments:Unclear if N/V is related to anxiety or some other source. In nay case he describes significan problems w/ panic wc at minimum are causing inc in N/V. Advised starting an SSRI and after reviewing S/E profile he agreed to try one, understanding if S/Es are intolerable we could try others of same class.Advised against BDZ use b/o addictive potential and his Hx.Follow up:RTO 1 month w/ Shinlinda #[id number] Encounter for immunizationComments:Advised Shingrix # 2 wc he refused today but agreed to get it at next ov. Functional Status Description No Information Available Mental Status Description No Information Available Referrals Description No Information Available
[2018-12-06] MEDS ORDERED: LORazepam INJ* 2 MG/ML 1 ML VIAL IV PUSH ONE (13:15)
[2018-12-06] MEDS ORDERED: Lorazepam PYXIS KEY PRN (13:15)
[2018-12-06] MEDS ORDERED: Famotidine IV* 10 MG/ML 2 ML (20 mg) IV SLOW PU ONE (13:15)
[2018-12-06 13:47] LABS: ABS Eosinophils 0.1 10^3/ul (0-0.6); ABS Lymphocytes 0.7 10^3/ul (1.0-4.8); ABS Monocytes 0.3 10^3/ul (0-0.8); ABS Neutrophils 3.1 10^3/ul (1.5-7.7); Eosinophil % 1.9 %; Hematocrit 37 % (42-52); Hemoglobin 12.6 g/dL (14.0-18.0); Lymphocyte % 16.7 %; Mean Corpuscular HGB Conc 34 g/dL (31-36); Mean Corpuscular Hemoglobin 30 pg (27-31); Mean Corpuscular Volume 90 fL (80-94); Mean Platelet Volume 8.1 fL (7.4-10.4); Nucleated Red Blood Cells % 0.1; Platelet Count 313 10^3/uL (150-450); Red Blood Count 4.13 10^6 /uL (4.18-5.48); Red Cell Distribution Width 15 % (10-15); White Blood Count 4.2 10^3/uL (3.5-10.8)
[2018-12-06 14:00] LABS: Albumin 4.2 g/dL (3.2-5.2); Calcium 8.9 mg/dL (8.6-10.3); Magnesium 1.6 mg/dL (1.9-2.7); Potassium 3.5 mmol/L (3.5-5.0); Total Bilirubin 0.6 mg/dL (0.2-1.0)
[2018-12-06 14:06] LABS: Albumin/Globulin Ratio 1.9 (1-3); C Reactive Protein 1.05 mg/L (<8.01); EGFR African American 95.3 (>60); EGFR Non-African American 78.8 (>60); Globulin 2.2 g/dL (2-4); Total Protein 6.4 g/dL (6.4-8.9)
[2018-12-06] MEDS ORDERED: Metoclopramide IV* 5 MG/ML 2 ML VIAL IV ONE (14:30)
[2018-12-06] MEDS ORDERED: Haloperidol INJ IV/IM* 5 MG/ML AMP IV SLOW PU ONE (14:30)
[2018-12-06] MEDS ORDERED: Trimethobenzamide IM* 100 MG/ML 2 ml VIAL IM ONE (15:13)
[2018-12-06] MEDS ORDERED: PROCHLORPERAZINE INJ 5 MG/ML 2 ML VIAL IV ONE (16:03)
[2018-12-06] MEDS ORDERED: Magnesium Sulfate 2 GM IV* 2 GM/50 ML BAG IVPB ONE (17:00)
--- NOTE | 2018-12-06 17:10 | ED ---
Nausea/Vomiting/Diarrhea HPI - HPI Summary HPI Summary: This patient is a 53-year-old male with a history of previous opioid abuse currently on Suboxone as well as cyclical vomiting presenting to the ED with intractable vomiting 2 days. He is endorsing bilateral lower quadrant pain, nausea, vomiting times all day 2 days. Patient is writhing in pain, obvious acute distress. Denies any diarrhea or constipation. He states this is similar to his previous intractable vomiting episodes. Denies this being any suboxone WD. He is requesting to be sedated. - History of Current Complaint Chief Complaint: EDNauseaVomitDiarrh Stated Complaint: VOMITING PER PT Time Seen by Provider: 12/06/18 12:50 Hx Obtained From: Patient Onset/Duration: Sudden Onset Timing: Constant Severity Initially: Moderate Severity Currently: Moderate Pain Intensity: 10 Pain Scale Used: Adult Non Verbal Character: Sharp Aggravating Factor(s): Nothing Alleviating Factor(s): Nothing Vomiting Frequency: Every 15-60 minutes Nausea/Vomiting Duration: 12-24 hours Vomiting Characteristics: Retching Diarrhea Presence: No - Risk Factors Influenza Risk Factors: Negative - Allergies/Home Medications Allergies/Adverse Reactions: Allergies Allergy/AdvReac Type Severity Reaction Status Date / Time No Known Allergies Allergy Verified 12/06/18 12:53 Home Medications: Home Medications PARoxetine HCL TAB* [Paxil TAB*] 20 mg PO DAILY 12/06/18 [History Confirmed 04/25] Prochlorperazine SUPP* [Compazine Supp*] 25 mg [place] BID 12/06/18 [History Confirmed 12/06/18] PMH/Surg Hx/FS Hx/Imm Hx Previously Healthy: Yes Endocrine/Hematology History: Reports: Hx Anemia Denies: Hx Diabetes Cardiovascular History: Denies: Hx Congestive Heart Failure, Hx Hypertension, Hx Pacemaker/ICD Respiratory History: Denies: Hx Asthma GI History: Reports: Hx Gall Bladder Disease, Hx Gastroesophageal Reflux Disease , Other GI Disorders - pancreatitis History: Denies: Hx Renal Disease Musculoskeletal History: Reports: Hx Back Problems - chronic low back pain, Hx Orthopedic Injury - left shoulder injury, Other Musculoskeletal History - ACL injury on R knee Sensory History: Reports: Hx Contacts or Glasses - for reading Denies: Hx Hearing Aid Opthamlomology History: Reports: Hx Contacts or Glasses - for reading Neurological History: Denies: Hx Headaches Psychiatric History: Reports: Hx Anxiety, Hx Depression Denies: Hx Panic Disorder - Surgical History Surgery Procedure, Year, and Place: ACL REPAIR RT KNEE - Immunization History Date of Tetanus Vaccine: 09/15/2013 Hx Pertussis Vaccination: No Immunizations Up to Date: Yes Infectious Disease History: No Infectious Disease History: Denies: Traveled Outside the [place] in Last 30 Days - Family History Known Family History: Negative: Hypertension - Social History Occupation: Employed Full-time Lives: With Family Alcohol Use: None Hx Substance Use: Yes Substance Use Type: Reports: Marijuana Substance Use Comment - Amount & Last Used: oxycontin 10mg bid; suboxone 4mg TID Hx Tobacco Use: No Smoking Status (MU): Former Smoker Review of Systems Constitutional: Negative Negative: Fever, Chills, Fatigue, Skin Diaphoresis Negative: Palpitations, Chest Pain Negative: Shortness Of Breath, Cough Positive: Vomiting, Nausea Genitourinary: Negative Positive: no symptoms reported, see HPI Negative: Arthralgia, Myalgia Neurological: Negative All Other Systems Reviewed And Are Negative: Yes Physical Exam Triage Information Reviewed: Yes Vital Signs On Initial Exam: Initial Vitals Temp Pulse Resp BP Pulse Ox 95.9 F 79 26 141/97 98 12/06/18 12:48 12/06/18 12:48 12/06/18 12:48 12/06/18 12:48 12/06/18 12:48 Vital Signs Reviewed: Yes Appearance: Positive: Well-Appearing, Well-Nourished Skin: Positive: Skin Color Reflects Adequate Perfusion Head/Face: Positive: Normal Head/Face Inspection Eyes: Positive: EOMI, MARY, Conjunctiva Clear Neck: Positive: Supple, No Lymphadenopathy Respiratory/Lung Sounds: Positive: Clear to Auscultation, Breath Sounds Present Cardiovascular: Positive: RRR, Pulses are Symmetrical in both Upper and Lower Extremities. Negative: Leg Edema Left, Leg Edema Right Abdomen Description: Positive: Other: - tenderness throughout the abdomen - diffuse Musculoskeletal: Positive: Strength/ROM Intact Neurological: Positive: Normal, Sensory/Motor Intact Psychiatric: Positive: Affect/Mood Appropriate Diagnostics - Vital Signs Vital Signs Temp Pulse Resp BP Pulse Ox 12/06/18 15:00 48 137/83 100 12/06/18 14:38 118/72 12/06/18 14:21 45 154/83 100 12/06/18 14:19 50 100 12/06/18 13:31 134/67 09/01/19 13:29 18 12/06/18 13:02 65 100 12/06/18 13:00 83 145/105 100 12/06/18 12:48 95.9 F 79 26 141/97 98 - Laboratory Lab Results: Lab Results 12/06/18 12/06/18 12/06/18 Range/Units 13:41 13:41 13:41 WBC 4.2 (3.5-10.8) 10^3/uL RBC 4.13 L (4.18-5.48) 10^6 /uL Hgb 12.6 L (14.0-18.0) g/dL Hct 37 L (42-52) % MCV 90 (80-94) fL MCH 30 (27-31) pg MCHC 34 (31-36) g/dL RDW 15 (10-15) % Plt Count 313 (150-450) 10^3/uL MPV 8.1 (7.4-10.4) fL Neut % (Auto) 72.8 % Lymph % (Auto) 16.7 % Mayes % (Auto) 7.8 % Eos % (Auto) 1.9 % Baso % (Auto) 0.8 % Absolute Neuts (auto) 3.1 (1.5-7.7) 10^3/ul Absolute Lymphs (auto) 0.7 L (1.0-4.8) 10^3/ul Absolute Monos (auto) 0.3 (0-0.8) 10^3/ul Absolute Eos (auto) 0.1 (0-0.6) 10^3/ul Absolute Basos (auto) 0.0 (0-0.2) 10^3/ul Absolute Nucleated RBC 0.0 10^3/ul Nucleated RBC % 0.1 Sodium 139 (135-145) mmol/L Potassium 3.5 (3.5-5.0) mmol/L Chloride 105 (101-111) mmol/L Carbon Dioxide 28 (22-32) mmol/L Anion Gap 6 (2-11) mmol/L BUN 13 (6-24) mg/dL Creatinine 1.00 (0.67-1.17) mg/dL Est GFR ( Amer) 95.3 (>60) Est GFR (Non-Af Amer) 78.8 (>60) BUN/Creatinine Ratio 13.0 (8-20) Glucose 123 H (70-100) mg/dL Lactic Acid 2.1 H* (0.5-2.0) mmol/L Calcium 8.9 (8.6-10.3) mg/dL Magnesium 1.6 L (1.9-2.7) mg/dL Total Bilirubin 0.60 (0.2-1.0) mg/dL AST 17 (13-39) U/L ALT 13 (7-52) U/L Alkaline Phosphatase 30 L (34-104) U/L C-Reactive Protein 1.05 (<8.01) mg/L Total Protein 6.4 (6.4-8.9) g/dL Albumin 4.2 (3.2-5.2) g/dL Globulin 2.2 (2-4) g/dL Albumin/Globulin Ratio 1.9 (1-3) Lipase 77 (11.0-82.0) U/L Result Diagrams: 12/06/18 13:41 12/06/18 13:41 Lab Statement: Any lab studies that have been ordered have been reviewed, and results considered in the medical decision making process. Re-Evaluation - Re-Evaluation First Eval Re-Evaluation Time: 14:00 Change: Worse Second Eval Re-Evaluation Time: 15:15 Change: Worse - pain continues - vomiting continues Third Eval Re-Evaluation Time: 16:20 Change: Worse - pain continues - vomiting continues Naus/Vom/Diarrhea Course/Dx - Course Course Of Treatment: During this was treatment, the patient's evaluated and treated for intractable nausea vomiting. He is in acute pain distress on arrival. Labs obtained and are WNL except for a slightly elevated lactic acid at 2.1. He is given IV 1 mg Ativan, 10 mg Reglan, 200 mg IM Tigan, 10 mg Compazine, 5 mg Haldol, 40 mg famotidine, 8 mg Zofran, 3 L fluids. Despite this and after 4 hours, patient continues to have intractable vomiting. However , he is visualized throughout the 4 hours, sticking his fingers down his throat multiple times. He will be admitted to the floor. Discussed with Dr. Espinal. - Differential Dx/Diagnosis Provider Diagnosis: Cyclical vomiting - Physician Notification/Consults Discussed Case/Management/Disposition Of Patient With: Ramona Espinal Discharge ED - Sign-Out/Discharge Documenting (check all that apply): Patient Departure Patient Received Moderate/Deep Sedation with Procedure: No - Discharge Plan Condition: Stable Disposition: ADMITTED TO [facility] Referrals: Peter Lee MD [Primary Care Provider] - - Billing Disposition and Condition Condition: STABLE Disposition: Admitted to [facility]
[2018-12-06] MEDS ORDERED: Ondansetron INJ* 2 MG/ML VIAL IV PRN (17:11)
[2018-12-06] MEDS ORDERED: Metoclopramide IV* 5 MG/ML 2 ML VIAL IV PRN (17:11)
[2018-12-06] MEDS ORDERED: Ketorolac INJ* 30 MG/ML 1 ML VIAL IV PUSH PRN (17:11)
[2018-12-06] MEDS ORDERED: Trimethobenzamide IM* 100 MG/ML 2 ml VIAL IM PRN (17:11)
[2018-12-06] MEDS ORDERED: hydrOXYzine HCL TAB* 25 MG PO PRN (17:19)
[2018-12-06] MEDS: NS 0.9% 1000 ML** 1,000 ML IV SCH (19:07)
--- NOTE | 2018-12-06 19:18 | HP ---
CC: Dr. Lee* HISTORY AND PHYSICAL: DATE OF ADMISSION: 12/06/18 PRIMARY CARE PROVIDER: Dr. Lee. CHIEF COMPLAINT: Vomiting. HISTORY OF PRESENT ILLNESS: Mr. Rod is a 53-year-old male who has a history of cyclical vomiting of unclear etiology, who presents to the emergency room with complaints of nausea and vomiting. The patient states that at approximately 11 a.m. on the morning of admission he began to develop intractable nausea and vomiting. He states that his symptoms typically last 2 to 3 days. He was last hospitalized for these symptoms at the end of October. He states that he had been trying to make good food choices to avoid triggering another episode; however, he does not know what exactly may trigger the nausea and vomiting. He states that he continues to smoke marijuana 3 times weekly despite it being recommended that he abstain from marijuana use as this has been known to cause intractable nausea and vomiting. He states that he feels chilled. He complains of headache. He states that he also has pain in his abdomen. He describes it as an ache that comes and goes. He states the pain is what triggers his nausea and vomiting. PAST MEDICAL HISTORY: 1. GERD. 2. Iron-deficiency anemia. 3. Cyclical vomiting. PAST SURGICAL HISTORY: Right knee ACL repair. MEDICATIONS: 1. Compazine suppository 25 mg p.r. b.i.d. 2. Hydroxyzine 25 to 50 mg p.o. q.i.d. p.r.n. anxiety. 3. Paxil 20 mg p.o. daily. 4. Omeprazole 40 mg p.o. daily. 5. Gabapentin 300 mg p.o. t.i.d. 6. Suboxone 8/2, 0.5 film sublingual 3 times daily. ALLERGIES: No known drug allergies. FAMILY HISTORY: The patient is adopted. SOCIAL HISTORY: The patient is a former smoker, he quit 5 years ago. He does not drink alcohol. He again uses marijuana 3 times weekly. 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 He is not . He has no children. He indicates that his mom, Meng Rod, would be his healthcare proxy. REVIEW OF SYSTEMS: A complete 11-system review of systems was obtained. Pertinent positives and negatives are as per HPI and otherwise negative. PHYSICAL EXAMINATION GENERAL: The patient is a well-developed, middle-aged male seen thrashing around on the bed intermittently, but in no acute distress. VITAL SIGNS: Blood pressure 137/83, pulse 48, respirations 18, temp 95.9 (I do not believe this is accurate), O2 saturation 100% on room air. HEENT: Pupils are pinpoint. Extraocular muscles intact. Oropharynx is clear. Oral mucosa is moist. NECK: There is no submandibular, cervical, or supraclavicular adenopathy. Thyroid is not enlarged. No thyroid nodules noted. PULMONARY: Lungs are clear to auscultation bilaterally. CARDIAC: Normal S1, S2. Regular rate and rhythm. I do not appreciate any murmurs. There is no lower extremity edema. ABDOMEN: Bowel sounds are present. Abdomen is soft, nontender, nondistended. MUSCULOSKELETAL: The patient moves all 4 extremities symmetrically. NEURO: Cranial nerves II through XII are grossly intact. Sensation is intact to light touch throughout. Strength is 5/5 and symmetric in both upper and lower extremities bilaterally. PSYCH: The patient is alert. He is oriented x3. SKIN: Skin is warm and dry. There are no rashes. There is a round approximately one-half inch in diameter scab on the dorsum of the right foot. There are few other excoriations on the left ankle. LABORATORY DATA: WBC 4.2, hemoglobin 12.6, hematocrit 37, platelets 313. Sodium 139, potassium 3.5, chloride 105, CO2 of 28, BUN 13, creatinine 1.0, glucose 123, lactic acid 2.1, calcium 8.9, magnesium 1.6. Bilirubin 0.6, AST 17 , ALT 13, alk phos 30. CRP 1.05. Albumin 4.2. Lipase 77. ASSESSMENT AND PLAN: Mr. Rod is a 53-year-old male who has a history of cyclical vomiting syndrome, who presents to the emergency room with complaints of intractable nausea and vomiting. 1. Intractable nausea and vomiting. The etiology behind this is not clear. He did undergo gastric emptying study on 10/28/18 that was reportedly normal. Marijuana use continues to be in the differential. At this point, the patient has asked in the emergency room to be sedated. I have informed him I will not be providing benzodiazepines to sedate him. We will offer numerous antiemetics including Zofran, Compazine, Reglan, and Tigan to treat his nausea and vomiting. He will receive normal saline at 150 mL per hour. Additionally, he will have Toradol for pain. He will be continued on Suboxone; however, the films are not to be cut. Because of this, I will change his film dose to 1 film sublingual twice daily. I will confirm with the pharmacy that the films cannot be cut. If they can be cut, he will be placed back on his home dose. 2. Gastroesophageal reflux disease. We will continue omeprazole 40 mg p.o. daily. 3. Depression. Continue Paxil 20 mg p.o. daily and we will continue hydroxyzine 25 mg p.o. 4 times daily p.r.n. anxiety. 4. Chronic pain. Continue gabapentin 300 mg p.o. 3 times daily. 5. DVT prophylaxis: According to the Adult Thrombosis Prophylaxis Risk Factor Assessment Guide, the patient has a total risk factor score of 2, making him moderate risk. Ambulation will be utilized as DVT prophylaxis. 6. Code status is full. TIME SPENT: 55 minutes was spent admitting this patient. [id number]/[facility] #: [id number] JAIRO
[2018-12-06] MEDS: Buprenorp/Nalox 4-1 MG FILM SL FILM SCH (20:11)
[2018-12-06] MEDS: Gabapentin CAP(*) 300 MG PO SCH (20:12)
[2018-12-06] MEDS: PROCHLORPERAZINE INJ 5 MG/ML 2 ML VIAL IV PRN (20:12)
[2018-12-06] MEDS ORDERED: Buprenorp/Nalox 8-2 MG FILM SL FILM SCH (21:00)
[2018-12-07] MEDS: PROCHLORPERAZINE INJ 5 MG/ML 2 ML VIAL IV PRN (04:38)
[2018-12-07] MEDS: NS 0.9% 1000 ML** 1,000 ML IV SCH (04:41)
[2018-12-07 05:01] LABS: Urine Appearance Cloudy; Urine Bacteria Absent (Absent); Urine Bilirubin Negative (Negative); Urine Blood Negative (Negative); Urine Color Yellow; Urine Glucose Negative (Negative); Urine Ketones 2+ (Negative); Urine Nitrite Negative (Negative); Urine Protein 1+(30 mg/dL) (Negative); Urine Red Blood Cell Absent (Absent); Urine Specific Gravity 1.024 (1.010-1.030); Urine Urobilinogen Negative (Negative); Urine White Blood Cell Absent (Absent)
[2018-12-07] MEDS ORDERED: Pantoprazole TAB * 40 MG TAB PO SCH (09:00)
[2018-12-07] MEDS ORDERED: PARoxetine HCL TAB* 20 MG PO SCH (09:00)
[2018-12-07 09:10] LABS: Urine Benzodiazepine Screen None Detected (None Detect); Urine Opiates Screen None Detected (None Detect)
[2018-12-07] MEDS: Buprenorp/Nalox 4-1 MG FILM SL FILM SCH ×2 (10:13→14:37)
[2018-12-07] MEDS: Gabapentin CAP(*) 300 MG PO SCH ×2 (10:13→14:37)
[2018-12-07 11:55] VITALS: BP 92/65
--- NOTE | 2018-12-07 18:53 | DS ---
CC: Dr. Lee* DISCHARGE SUMMARY: DATE OF ADMISSION: 12/06/18 DATE OF DISCHARGE: 12/07/18 PRIMARY CARE PROVIDER: Dr. Lee. PRINCIPAL DIAGNOSIS: Intractable nausea and vomiting of unclear etiology. SECONDARY DIAGNOSES: 1. Gastroesophageal reflux disease. 2. Iron deficiency anemia. 3. Depression/anxiety. DISCHARGE MEDICATIONS: 1. Compazine suppository 25 mg [place] b.i.d. p.r.n. nausea and vomiting. 2. Hydroxyzine 25 to 50 mg p.o. 4 times daily p.r.n. anxiety. 3. Paxil 20 mg p.o. daily. 4. Omeprazole 40 mg p.o. daily. 5. Gabapentin 300 mg p.o. t.i.d. 6. Suboxone 8/2 one-half film sublingual 3 times daily. HOSPITAL COURSE: Mr. Rod is a 53-year-old male with a history of cyclical vomiting who presents to the emergency room with complaints of intractable nausea and vomiting. This began at approximately 11 a.m. on the day of admission. He received numerous medications in the emergency room and despite this continued to claim that he had persistent nausea and vomiting. Unfortunately, the patient was frequently seen putting his fingers down his throat. He was trying to make himself vomit. At the time of my evaluation, he was appropriate, but stating that he is continuing to feel nauseous. At one point, he retched without putting his fingers down his throat. The patient was admitted for IV fluid hydration and further antiemetics. It was made clear to the patient that he would not be sedated to treat his nausea and vomiting. This is what the patient was asking for in the emergency room. The patient the following morning was seen lying in bed. He states that the nausea and vomiting has resolved. He has tried some clear liquids and tolerated those fine. He was willing to try eating some cereal for breakfast. He ate both Cheerios for breakfast and a light lunch without any return of his nausea and vomiting. PHYSICAL EXAMINATION: On the day of discharge, the patient is awake, alert, and oriented, sitting up in bed, in no acute distress. Cardiac exam reveals normal S1, S2 with a regular rate and rhythm. Lungs are clear. Abdomen is soft , nontender, nondistended. FOLLOWUP CONCERNS: The patient is being discharged home today 12/07/18. Activity level is as tolerated. Diet is regular, as tolerated. Condition on discharge is stable. The patient is to follow up with Dr. Lee in the next 4 to 7 days. TIME SPENT: Twenty five minutes was spent discharging this patient. [id number]/[facility] #: [id number] MTDD
== END 2018-12-07 15:30 | disposition home or self-care (01) ==
LOC: ED 12:46 → MED 17:09
PROVIDERS: ADMIT Hospitalist; ATTEND Hospitalist
DX: R11.2 Nausea with vomiting, unspecified (principal); K21.9 Gastro-esophageal reflux disease without esophagitis; D50.9 Iron deficiency anemia, unspecified; F32.9 Major depressive disorder, single episode, unspecified; F41.9 Anxiety disorder, unspecified; Z79.899 Other long term (current) drug therapy; Z87.891 Personal history of nicotine dependence; G89.29 Other chronic pain
CPT/HCPCS: 36415; 80053; 80307; 81003; 81015; 83605; 83690; 83735; 85025; 86140; 96361; 96365; 96366; 96367; 96372; 96375; 96376; 99284; A9270-GY; G0378; J0780; J1630; J1885; J2060; J2405; J2765; J3250; J3475

== ENCOUNTER 2019-01-19 13:02 | Emergency (ER) | payer MEDICAID ==
[2019-01-19 13:52] LABS: ABS Eosinophils 0.2 10^3/ul (0-0.6); ABS Lymphocytes 2.6 10^3/ul (1.0-4.8); ABS Monocytes 0.4 10^3/ul (0-0.8); ABS Neutrophils 2.5 10^3/ul (1.5-7.7); Eosinophil % 2.7 %; Hematocrit 38 % (42-52); Hemoglobin 13.1 g/dL (14.0-18.0); Lymphocyte % 46.2 %; Mean Corpuscular HGB Conc 34 g/dL (31-36); Mean Corpuscular Hemoglobin 31 pg (27-31); Mean Corpuscular Volume 90 fL (80-94); Mean Platelet Volume 8.8 fL (7.4-10.4); Platelet Count 352 10^3/uL (150-450); Red Blood Count 4.29 10^6 /uL (4.18-5.48); Red Cell Distribution Width 14 % (10-15); White Blood Count 5.6 10^3/uL (3.5-10.8)
--- OUTSIDE RECORDS SUMMARY | 2019-01-19 14:02 | XMS REPORT | Continuity of Care Document ---
:1965 External Reference #:[id number] Author Name Peter Lee M.D. 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 Unavailable Verónica Harley MD - Sports Medicine Care Team Information Furnace Liner [facility] - Care Team Information Furnace Liner [phone] [facility] - Care Team Information Furnace Liner [phone] Gastroenterology Problems Active Problems Provider Date Low [...] Medications SIG Qnty Indications Ordering Provider Date Suboxone 1/2 by mouth 45units M51.36 Peter Lee, 12/22/2018 8-2mg Film 3x/day; suboxone M.DMartin prescriber# [id number]; rx due 12/26/18 Paroxetine HCL take 1 tablet by 30tabs F41.0 Peter Lee, 12/22/2018 30mg mouth daily for M.D. Tablets anxiety Zubsolv 1 tab by mouth 42tabs M54.5 Peter Lee, 12/15/2018 2.9-0.71mg three times a M.D. Tablets Sub day; take as directed; prescriber# [id number] M51.36 F11.20 Prochlorperazine insert one 12units R11.2 Peter Lee, 08/29/2018 25mg suppository M.D. Suppository rectally every 12 hours as needed for nausea Omeprazole Take One Capsule By K21.0 Unknown 03/27/[address] Mouth Every Morning Vitamin D3 1 capsule daily E55.9 Unknown 09/16/2017 5000Unit Capsules Gabapentin Take One Capsule By 90caps M54.5 Peter Lee, 04/15/2015 300mg Capsules Mouth Three Times A M.D. Day For Pain M51.36 Hydroxyzine HCL Take One To Two 200tabs Peter Lee, 03/28/2015 25mg Tablets Tablets By Mouth M.D. Four Times A Day as Needed For Anxiety History Medications Paroxetine HCL 1 1/2 tabs by F41.0 Unknown 12/18/2018 - 20mg mouth every day 12/22/2018 Tablets Paroxetine HCL 1/2 tablet daily 30tabs F41.0 Peter Lee, 11/18/2018 - 20mg to start; M.D. 12/18/2018 Tablets increase to 1 daily after 1 week; for anxiety/panic Ondansetron dissolve one 10tabs R11.2 Peter Lee, 06/30/2018 - 4mg tablet on the M.D. 07/07/2018 Tablets Dispers tongue up to 3x/day as needed for nausea Medications Administered in Office Medication SIG Qnty Indications Ordering Provider Date Injection Of Phenergan 50 mg Peter Lee M.D. 06/30/2018 Injection SC/Im Injections Peter Lee M.D. 06/30/2018 Injection Immunizations CPT Code Status Date Vaccine Lot # [id number] Given 11/17/2017 Shingrix Zoster (Shingles) Vaccine (HZV) [id number] Recomb,Subnit,Adjuvanted [id number] Refused 11/20/2016 Influenza Virus Vaccine, Quadrivalent, Split, Preservative Free [id number] Refused 12/19/2015 Influenza Virus Vaccine, Quadrivalent, Split, Preservative Free Vital Signs Date Vital Result Comment 12/22/2018 11:41am BP Systolic 124 mmHg BP Diastolic 82 mmHg Weight 176.00 lb 11/18/2018 11:00am BP Systolic 118 mmHg BP Diastolic 80 mmHg Weight 180.00 lb Results Test Date Facility Test Result H/L Range Note CBC Auto Diff 12/06/2018 [facility] White Blood 4.2 10^3/uL Normal 3.5-10.8 [phone] Count Red Blood Count 4.13 10^6/uL Low 4.18-5.48 Hemoglobin 12.6 g/dL Low 14.0-18.0 Hematocrit 37 % Low 42-52 Mean Corpuscular Volume 90 fL Normal 80-94 Mean Corpuscular Hemoglobin 30 pg Normal 27-31 Mean Corpuscular HGB Conc 34 g/dL Normal 31-36 Red Cell Distribution Width 15 % Normal 10-15 Platelet Count 313 10^3/uL Normal 150-450 Mean Platelet Volume 8.1 fL Normal 7.4-10.4 Abs Neutrophils 3.1 10^3/uL Normal 1.5-7.7 Abs Lymphocytes 0.7 10^3/uL Low 1.0-4.8 Abs Monocytes 0.3 10^3/uL Normal 0-0.8 Abs Eosinophils 0.1 10^3/uL Normal 0-0.6 Abs Basophils 0.0 10^3/uL Normal 0-0.2 Abs Nucleated RBC 0.0 10^3/uL Granulocyte % 72.8 % Lymphocyte % 16.7 % Monocyte % 7.8 % Eosinophil % 1.9 % Basophil % 0.8 % Nucleated Red Blood Cells % 0.1 Comp Metabolic Panel 12/06/2018 [facility] Sodium 139 mmol/L Normal 135-145 [phone] Potassium 3.5 mmol/L Normal 3.5-5.0 Chloride 105 mmol/L Normal 101-111 Co2 Carbon Dioxide 28 mmol/L Normal 22-32 Anion Gap 6 mmol/L Normal 2-11 Calcium 8.9 mg/dL Normal 8.6-10.3 Albumin 4.2 g/dL Normal 3.2-5.2 Total Bilirubin 0.60 mg/dL Normal 0.2-1.0 Glucose 123 mg/dL High 70-100 Blood Urea Nitrogen 13 mg/dL Normal 6-24 Creatinine 1.00 mg/dL Normal 0.67-1.17 BUN/Creatinine Ratio 13.0 Normal 8-20 Total Protein 6.4 g/dL Normal 6.4-8.9 Globulin 2.2 g/dL Normal 2-4 Albumin/Globulin Ratio 1.9 Normal 1-3 Alkaline Phosphatase 30 U/L Low 34-104 Alt 13 U/L Normal 7-52 Ast 17 U/L Normal 13-39 Egfr Non- 78.8 >60 Egfr 95.3 >60 1 Laboratory test finding 12/06/2018 [facility] Magnesium 1.6 mg/dL Low 1.9-2.7 [phone] Lipase 77 U/L Normal 11.0-82.0 C Reactive Protein 1.05 mg/L Normal <8.01 Lactic Acid 2.1 mmol/L Critical high 0.5-2.0 2 Urinalysis Profile 12/06/2018 [facility] Urine Color Yellow [phone] Urine Appearance Cloudy Urine Specific Meredith 1.024 Normal 1.010-1.030 Urine pH 5.0 Normal 5-9 Urine Urobilinogen Negative Negative Urine Ketones 2+ Abnormal Negative Urine Protein 1+(30 mg/dL) Abnormal Negative Urine Leukocytes Negative Negative Urine Blood Negative Negative Urine Nitrite Negative Negative Urine Bilirubin Negative Negative Urine Glucose Negative Negative Urine White Blood Cell Absent Absent Urine Red Blood Cell Absent Absent Urine Bacteria Absent Absent CBC Auto Diff 10/07/2018 [facility] White Blood 8.1 10^3/uL Normal 3.5-10.8 [phone] Count Red Blood Count 4.20 10^6/uL Normal [...] Cells % 0.0 Comp Metabolic Panel 10/07/2018 [facility] Sodium 137 mmol/L Normal 135-145 [phone] Potassium 3.9 mmol/L Normal 3.5-5.0 Chloride 104 [...] Egfr Non- 95.0 >60 Egfr 115.0 >60 3 Urine Drug 10/07/2018 [facility] Urine Amphetamine None Detected None Detect SCR ED & [phone] Screen Pain Clinic Urine Barbiturates Screen None Detected None Detect Urine Benzodiazepine Screen None Detected None Detect Urine Cannabinoids Screen Presumptive Posi <SEE NOTE> Abnormal None Detect 4 Urine Cocaine Screen None Detected None Detect Urine Opiates Screen None Detected None Detect Urine Phencyclidine Screen None Detected None Detect 5 Urinalysis Profile 10/06/2018 [facility] Urine Color Yellow [phone] Urine Appearance Cloudy Urine Specific Meredith 1.020 Normal 1.010-1.030 Urine pH 5.0 Normal 5-9 Urine Urobilinogen Negative Negative Urine Ketones 2+ Abnormal Negative Urine Protein Negative Negative Urine Leukocytes Negative Negative Urine Blood Negative Negative Urine Nitrite Negative Negative Urine Bilirubin Negative Negative Urine Glucose Negative Negative Laboratory test finding 10/06/2018 [facility] Amylase 51 U/L Normal 29-103 [phone] Lipase 32 U/L Normal 11.0-82.0 C Reactive Protein < 1.00 mg/L Normal <8.01 Lactic Acid 2.9 mmol/L Critical high 0.5-2.0 6 Comp Metabolic Panel 10/06/2018 [facility] Sodium 141 mmol/L Normal 135-145 [phone] Potassium 3.7 mmol/L Normal 3.5-5.0 Chloride 108 [...] Egfr Non- 83.6 >60 Egfr 101.1 >60 7 CBC Auto Diff 10/06/2018 [facility] White Blood 13.0 10^3/uL High 3.5 -10.8 [phone] Count Red Blood Count 4.46 10^6/uL Normal [...] % Nucleated Red Blood Cells % 0.1 Laboratory 10/06/2018 [facility] Lactic Acid 1.2 mmol/L Normal 0.5- 2.0 8 test finding [phone] Urine Drug SCR 08/30/2018 [facility] Urine None None ED & Pain [phone] Amphetamine Detected Detect Clinic Screen Urine Barbiturates Screen None Detected None Detect Urine Benzodiazepine Screen None Detected None Detect Urine Cannabinoids Screen Presumptive Posi <SEE NOTE> Abnormal None Detect 9 Urine Cocaine Screen None Detected None Detect Urine Opiates Screen None Detected None Detect Urine Phencyclidine Screen None Detected None Detect 10 CBC Auto Diff 08/30/2018 [facility] White Blood 8.0 10^3/uL Normal 3.5-10.8 [phone] Count Red Blood Count 4.30 10^6/uL Normal [...] Red Blood Cells % 0.0 Laboratory test 08/30/2018 [facility] Lactic Acid 1.0 mmol/L Normal 0.5-2.0 11 finding [phone] Comp Metabolic 08/30/2018 [facility] Sodium 138 mmol/L Normal 135- 145 Panel [phone] Potassium 3.4 mmol/L Low 3.5-5.0 Chloride 103 [...] Egfr Non- 76.1 >60 Egfr 92.1 >60 12 Laboratory test finding 08/30/2018 [facility] Lipase < 10 U/L Low 11.0-82.0 [phone] C Reactive Protein < 1.00 mg/L Normal <8.01 Troponin-I (TnI) 0.00 ng/mL <0.04 13 Urinalysis Profile 08/30/2018 [facility] Urine Color Yellow [phone] Urine Appearance Clear Urine Specific Meredith 1.029 Normal 1.010-1.030 Urine pH 5.0 Normal [...] Present Abnormal Absent CBC Auto Diff 08/28/2018 [facility] White Blood 6.4 10^3/uL Normal 3.5-10.8 [phone] Count Red Blood Count 4.33 10^6/uL Normal [...] Cells % 0.1 Comp Metabolic Panel 08/28/2018 [facility] Sodium 139 mmol/L Normal 135-145 [phone] Potassium 3.4 mmol/L Low 3.5-5.0 Chloride 105 [...] Egfr Non- 84.6 >60 Egfr 102.4 >60 14 Laboratory test finding 08/28/2018 [facility] Lipase 29 U/L Normal 11.0-82.0 [phone] 1 Because ethnic data is not always [...] 5 Kidney failure <15 (or dialysis) 2 Critical Result LACT:2.1 Called to [id number] at: 14:05:49 by:[id number] Read back by:[id number] [facility] Severe Sepsis and Septic Shock Management Bundle Measure requires all lactic acids initially measuring >2.0 mmol/L be repeated. 3 Because ethnic data is not always readily [...] 15-29 5 Kidney failure <15 (or dialysis) 4 Presumptive Positive Presumptive positive results are unconfirmed. 5 The urine specimen was tested at the listed cutoffs: Drug class test level (ng/mL) Amphetamines 500 Barbiturates 200 Benzodiazepine metabolites 200 Cocaine metabolites 150 Cannabinoids 50 Opiates 300 Pcp 25 Specimen was received without chain of custody. Results should be used for medical purposes only. 6 Critical Result LACT:2.9 Called to [id number] at: 19:25:21 by:[email or web address] Read back by:[email or web address] [facility] Severe Sepsis and Septic Shock Management Bundle Measure requires all lactic acids initially measuring >2.0 mmol/L be repeated. 7 Because ethnic data is not always readily [...] 15-29 5 Kidney failure <15 (or dialysis) 8 [facility] Severe Sepsis and Septic Shock Management Bundle Measure requires all lactic acids initially measuring >2.0 mmol/L be repeated. 9 Presumptive Positive Presumptive positive results are unconfirmed. 10 The urine specimen was tested at the listed cutoffs: Drug class test level (ng/mL) Amphetamines 500 Barbiturates 200 Benzodiazepine metabolites 200 Cocaine metabolites 150 Cannabinoids 50 Opiates 300 Pcp 25 Specimen was received without chain of custody. Results should be used for medical purposes only. 11 [facility] Severe Sepsis and Septic Shock Management Bundle Measure requires all lactic acids initially measuring >2.0 mmol/L be repeated. 12 Because ethnic data is not always [...] 5 Kidney failure <15 (or dialysis) 13 Troponin-I testing on Plasma Separator Tubes (PST) has a known false positive rate of 0.20-0.40%. All positive troponins reflex immediately to secondary confirmatory testing. Using the [employer] DxI 800 Access Immunoassay systems, the 99th percentile upper reference limit was demonstrated to be < 0.03 ng/mL. 14 Because ethnic data is not always readily [...] dialysis) Procedures Date Code Description Status 06/30/2018 27741 SC/Im Injections Completed 03/26/2018 14160379 Colonoscopy Completed Medical Devices Description No Information Available Encounters Type Date Location Provider Dx Diagnosis Office Visit 11/18/2018 Main Office Peter Lee F11.20 Opioid dependence, 11:00a Yoseph uncomplicated M51.36 Other intervertebral disc degeneration, [...] elswhr Office Visit 07/29/2018 11:15a Main Office Moses Lee1.20 Opioid dependencePeter M.D. uncomplicated M51.36 Other intervertebral disc degeneration, lumbar region M54.5 Low back pain K21.0 Gastro-esophageal reflux disease with esophagitis Office Visit 06/30/2018 11:15a Main Office Peter Lee, R11.2 Nausea with M.D. vomiting, unspecified R19.7 Diarrhea, unspecified R05 Cough A08.4 Viral intestinal infection, unspecified Assessments Date Code Description Provider 12/22/2018 R11.2 Nausea with vomiting, unspecified Peter Lee M.D. 12/22/2018 F41.0 Panic disorder [episodic paroxysmal anxiety] Peter Lee M.D. 12/22/2018 F11.20 Opioid dependence, Peter Motley M.D. 12/22/2018 M51.36 Other intervertebral disc degeneration, Peter Lee M.D. lumbar region 12/22/2018 M54.5 Low back pain Peter Lee M.D. 12/22/2018 Z23 Encounter for immunization Peter Lee M.D. 11/18/2018 F11.20 Opioid dependence, Peter Motley M.D. 11/18/2018 M51.36 Other intervertebral disc degeneration, [...] Viral intestinal infection, unspecified Peter Lee M.D. Plan of Treatment 12/22/2018 - Silcoff, Peter, M.D.R11.2 Nausea with vomiting, unspecifiedComments:Strongly suspect his recurrent N/V has a strong link to anxiety and advised him of this today.F41.0 Panic disorder [episodic paroxysmal anxiety]New Medication:Paroxetine HCL 30 mg - take 1 tablet by mouth daily for anxietyComments:Encouraged counseling. He stated he would pursue this next month after insurance issues settled and he is back on MolinaFollow up:RTO 1 ebsuxJ70.20 Opioid dependence, ywfyttbaapqrpE74.36 Other intervertebral disc degeneration, lumbar regionNew Medication:Suboxone 8-2 mg - 1/2 by mouth 3x/day ; suboxone prescriber# [id number]; rx due 12/26/M54.5 Low back painZ23 Encounter for immunizationComments:Advised Shingrix #2 wc he reluctantly agreed to today. VIS provided Functional Status Description No Information Available Mental Status Description No Information Available Referrals Description No Information Available
--- OUTSIDE RECORDS SUMMARY | 2019-01-19 14:02 | XMS REPORT | Continuity of Care Document ---
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 [phone] Problems Description No Information Available Social History Type Date Description Comments Sex Unknown Tobacco Use Start: Unknown Patient has never smoked Smoking Status Reviewed: 10/26/18 Patient has never smoked Allergies, Adverse Reactions, Alerts Description No Known Drug Allergies Medications Active Medications SIG Qnty Indications Ordering Provider Date Omeprazole 1 tablet by mouth 30caps Stephon Casillas DO 03/27/2018 40mg every morning Capsules DR Vitamin D3 1 capsule daily E55.9 Unknown 09/16/2017 5000Unit Capsules Suboxone 1/2 film by mouth 45units M54.5 Peter Lee, 09/26/2015 8-2mg Film 3x/day; suboxone prescriber# [id number]; may fill on 09/19/17 Gabapentin Take One Capsule 90caps M54.5 Peter Lee, 04/15/2015 300mg By Mouth Three MD Capsules Times A Day For Pain Hydroxyzine HCL Take One To Two 200tabs Peter Lee, 03/28/2015 25mg Tablets By Mouth MD Tablets Four Times A Day as Needed For Anxiety Immunizations Description No Information Available Vital Signs Date Vital Result Comment 10/26/2018 10:58am Height 70 inches 5'10" Weight 182.00 lb BMI (Body Mass Index) 26.1 kg/m2 01/19/2018 10:51am Height 70 inches 5'10" Weight 196.00 lb BP Systolic 139 mmHg BP Diastolic 95 mmHg Heart Rate 67 /min BMI (Body Mass Index) 28.1 kg/m2 Results Test Date Facility Test Result H/L Range Note Laboratory test 09/07/2018 [facility] Breath Test POSITIVE High finding [address] [place] [address] [phone] Procedures Date Code Description Status 09/07/2018 47880 Breath Hydrogen Completed Medical Devices Description No Information Available Encounters Description No Information Available Assessments Date Code Description Provider 10/26/2018 G43.A0 Cyclical vomiting, not intractable Stephon Sonja, DO 10/26/2018 R10.13 Epigastric pain Stephon Sonja, DO 10/26/2018 K59.00 Constipation, unspecified Stephon Sonja, DO 10/26/2018 F41.9 Anxiety disorder, unspecified Stephon Sonja, DO 10/15/2018 R11.2 Nausea with vomiting, unspecified Stephon Sonja, DO 09/07/2018 R10.13 Epigastric pain Stephon Sonja, DO 09/07/2018 R11.2 Nausea with vomiting, unspecified Stephon Sonja, DO 09/07/2018 K59.00 Constipation, unspecified Stephon Sonja, DO 08/30/2018 R11.2 Nausea with vomiting, unspecified Dinesh Dial MD Plan of Treatment Future Appointment(s):03/01/2019 10:45 am - Stephon Casillas DO at [facility]/26/2018 - Stephon Casillas DOG43.A0 Cyclical vomiting, not phewgxoiaidY31.13 Epigastric painK59.00 Constipation, egoqcwexqhoL78.9 Anxiety disorder, unspecified Functional Status Description No Information Available Mental Status Description No Information Available Referrals Description No Information Available
[2019-01-19 14:30] LABS: ALT 13 U/L (7-52); Albumin 4.5 g/dL (3.2-5.2); Albumin/Globulin Ratio 1.9 (1-3); Alkaline Phosphatase 29 U/L (34-104); BUN/Creatinine Ratio 18.8 (8-20); Blood Urea Nitrogen 18 mg/dL (6-24); C Reactive Protein < 1.00 mg/L (<8.01); CO2 Carbon Dioxide 27 mmol/L (22-32); Calcium 9.3 mg/dL (8.6-10.3); Chloride 109 mmol/L (101-111); EGFR African American 99.9 (>60); EGFR Non-African American 82.6 (>60); Globulin 2.4 g/dL (2-4); Glucose 113 mg/dL (70-100); Sodium 141 mmol/L (135-145); Total Protein 6.9 g/dL (6.4-8.9)
[2019-01-19] MEDS ORDERED: Haloperidol INJ IV/IM* 5 MG/ML AMP IM ONE ×2 (14:43→15:31)
[2019-01-19] MEDS ORDERED: Ondansetron ODT TAB* 4 MG PO ONE (14:45)
--- NOTE | 2019-01-19 15:03 | ED ---
Complex/Multi-Sys Presentation - HPI Summary HPI Summary: Patient is a 53 y/o M [facility] with complaints of abdominal pain and vomiting. Per triage, "Vomiting for an hour, pt is very dramatic in triage, sticking his finger down his throat , hyperventilating, throwing himself on the floor". Patient repeatedly makes requests for Compazine, stating that it helps with nausea and anxiety. He states that his anxiety is "the worst" at present. He is on the room floor thrashing. Patient was observed by ED staff going back and forth from bathroom to vomit. Patient has multiple previous visits for cyclical vomiting. He reports that Sx onset around 1100 01/19/19. Patient additionally endorses diarrhea. He denies blood in vomit or stool. Stool has been watery and brown colored. He additionally endorses chills and subjective fever. Patient reports that he has not had any food today, 01/19/19. He has not taken any of his suboxone today. He is on 4 mg TID, with last dose being . Dr. Lee prescribes his suboxone, per patient. Allergies to medicine is denied. He denies PSHx. Patient is prescribed Prozac, 30 mg, which he took this morning. He denies tobacco and alcohol usage. Patient reports marijuana usage. Patient was adopted from [place]. Home medications and allergies are reviewed. Patient lives in [facility], patient's father dropped him in the ED. Patient requests to stay night at [facility]. On triage, pain is rated 10/10, nothing is noted to aggravate/alleviate Sx. Home medications and allergies are reviewed. - History Of Current Complaint Chief Complaint: EDAbdPain Time Seen by Provider: 01/19/19 14:43 Hx Obtained From: Patient, Other: - triage nurse Onset/Duration: Lasting Hours, Still Present Timing: Constant, Hours Severity Currently: Severe Severity Initially: Severe Location: Pain At: - abdomen Character: Sharp Aggravating Factor(s): nothing Alleviating Factor(s): nothing Associated Signs And Symptoms: Positive: Nausea, Vomiting, Diarrhea, Abdominal Pain, Fever - subjective, Other - positive - chills, anxiety - Allergies/Home Medications Allergies/Adverse Reactions: Allergies Allergy/AdvReac Type Severity Reaction Status Date / Time No Known Allergies Allergy Verified 12/06/18 12:53 Home Medications: Home Medications Buprenorp/Nalox 8-2 MG FILM [Suboxone 8 mg-2 mg Sl Film] 0.5 film SL TID [History Confirmed 01/19/19] Cholecalciferol (Vitamin D3) [Natural Vitamin D-3] 5,000 unit PO DAILY 01/19/19 [History Confirmed 01/19/19] PMH/Surg Hx/FS Hx/Imm Hx Previously Healthy: No Endocrine/Hematology History: Reports: Hx Anemia Denies: Hx Diabetes Cardiovascular History: Denies: Hx Congestive Heart Failure, Hx Hypertension, Hx Pacemaker/ICD Respiratory History: Denies: Hx Asthma GI History: Reports: Hx Gall Bladder Disease, Hx Gastroesophageal Reflux Disease , Other GI Disorders - pancreatitis, cyclical vomiting History: Denies: Hx Renal Disease Musculoskeletal History: Reports: Hx Back Problems - chronic low back pain, Hx Orthopedic Injury - left shoulder injury, Other Musculoskeletal History - ACL injury on R knee Sensory History: Reports: Hx Contacts or Glasses - for reading Denies: Hx Hearing Aid Opthamlomology History: Reports: Hx Contacts or Glasses - for reading Neurological History: Denies: Hx Headaches Psychiatric History: Reports: Hx Anxiety, Hx Depression, Hx Substance Abuse - is on suboxone now 01/19/19 Denies: Hx Panic Disorder - Surgical History Surgery Procedure, Year, and Place: ACL REPAIR RT KNEE - Immunization History Date of Tetanus Vaccine: 09/15/2013 Infectious Disease History: No Infectious Disease History: Denies: Traveled Outside the [place] in Last 30 Days - Family History Known Family History: Negative: Hypertension - Social History Alcohol Use: None Hx Substance Use: Yes Substance Use Type: Reports: Marijuana Substance Use Comment - Amount & Last Used: oxycontin 10mg bid; suboxone 4mg TID Hx Tobacco Use: No Smoking Status (MU): Former Smoker Review of Systems Positive: Fever - subjective , Chills Cardiovascular: Negative Respiratory: Negative Positive: Abdominal Pain, Vomiting, Diarrhea, Nausea Positive: no symptoms reported Skin: Negative Neurological: Negative Positive: Anxious - pt states his anxiety is "the worst" at this time , Other - denies suicidal or homicidal ideation All Other Systems Reviewed And Are Negative: Yes Physical Exam - Summary Physical Exam Summary: Appearance: Ill-appearing, complains of severe pain distress, well-nourished Skin: Warm, color reflects adequate perfusion, dry Head: Normal Head/Face inspection, atraumatic Eyes: Conjunctiva clear ENT: Normal inspection Neck: Supple, no nodes, no JVD Respiratory: Lungs clear, normal breath sounds, no respiratory distress Cardio: RRR, No murmur, pulses normal, brisk capillary refill Abdomen: Soft, diffusely tender with no guarding, no rebound, no masses, no distention. Bowel sounds: distant but present in all four quadrants Musculoskeletal: Strength Intact/ROM intact, no calf tenderness, no edema. Psychological: He is on the floor thrashing in distress, repeatedly asking for compazine Neuro: Alert, muscle tone normal, no focal deficit, ambulatory without assistance Triage Information Reviewed: Yes Vital Signs On Initial Exam: Initial Vitals Temp Pulse Resp BP Pulse Ox 96.8 F 79 17 140/103 100 01/19/19 13:02 01/19/19 13:02 01/19/19 13:02 01/19/19 13:02 01/19/19 13:02 Vital Signs Reviewed: Yes Procedures - Sedation Patient Received Moderate/Deep Sedation with Procedure: No Diagnostics - Vital Signs Vital Signs Temp Pulse Resp BP Pulse Ox 01/19/19 13:02 96.8 F 79 17 140/103 100 - Laboratory Lab Results: Lab Results 01/19/19 01/19/19 01/19/19 Range/Units 13:44 13:44 13:44 WBC 5.6 (3.5-10.8) 10^3/uL RBC 4.29 (4.18-5.48) 10^6 /uL Hgb 13.1 L (14.0-18.0) g/dL Hct 38 L (42-52) % MCV 90 (80-94) fL MCH 31 (27-31) pg MCHC 34 (31-36) g/dL RDW 14 (10-15) % Plt Count 352 (150-450) 10^3/uL MPV 8.8 (7.4-10.4) fL Neut % (Auto) 44.0 % Lymph % (Auto) 46.2 % Runnels % (Auto) 6.6 % Eos % (Auto) 2.7 % Baso % (Auto) 0.5 % Absolute Neuts (auto) 2.5 (1.5-7.7) 10^3/ul Absolute Lymphs (auto) 2.6 (1.0-4.8) 10^3/ul Absolute Monos (auto) 0.4 (0-0.8) 10^3/ul Absolute Eos (auto) 0.2 (0-0.6) 10^3/ul Absolute Basos (auto) 0.0 (0-0.2) 10^3/ul Absolute Nucleated RBC 0.0 10^3/ul Nucleated RBC % 0.0 Sodium 141 (135-145) mmol/L Potassium Pending Chloride 109 (101-111) mmol/L Carbon Dioxide 27 (22-32) mmol/L Anion Gap Pending BUN 18 (6-24) mg/dL Creatinine 0.96 (0.67-1.17) mg/dL Est GFR ( Amer) 99.9 (>60) Est GFR (Non-Af Amer) 82.6 (>60) BUN/Creatinine Ratio 18.8 (8-20) Glucose 113 H (70-100) mg/dL Lactic Acid 2.0 (0.5-2.0) mmol/L Calcium 9.3 (8.6-10.3) mg/dL Total Bilirubin 0.30 (0.2-1.0) mg/dL AST Pending ALT 13 (7-52) U/L Alkaline Phosphatase 29 L (34-104) U/L C-Reactive Protein < 1.00 (<8.01) mg/L Total Protein 6.9 (6.4-8.9) g/dL Albumin 4.5 (3.2-5.2) g/dL Globulin 2.4 (2-4) g/dL Albumin/Globulin Ratio 1.9 (1-3) Lipase 124 H (11.0-82.0) U/L Result Diagrams: 01/19/19 13:44 01/19/19 13:44 Lab Statement: Any lab studies that have been ordered have been reviewed, and results considered in the medical decision making process. - CT abd/pel ct CT Interpretation Completed By: Radiologist Summary of CT Findings: IMPRESSION: NO CT EVIDENCE OF PANCREATITIS OR PERIPANCREATIC FLUID COLLECTIONS. NO OTHER ACUTE PROCESS. NO SIGNIFICANT INTERVAL CHANGE. MODERATE FATTY LIVER. THIS REPORT WAS REVIEWED BY DR. RUIZ. Re-Evaluation - Re-Evaluation First Eval Re-Evaluation Time: 15:02 Change: Unchanged Comment: Patient was going to be given oral contrast in preparation for CT. However, patient states that he cannot drink it. Patient observed by staff going back and forth to bathroom to vomit. Zofran given. Second Eval Re-Evaluation Time: 15:31 Change: Unchanged Comment: Patient thrashing on room floor saying I need Compazine, I need Compazine". After discussion, patient became agreeable with contrast. Third Eval Re-Evaluation Time: 16:25 Change: Improved Comment: Pt calming and has drunk one cup of contrast. He is still asking for compazine. Explained that compazine is not a first line drug. Pt feels that he vomited all of his usual meds today, and did not take suboxone since yesterday at 5pm. Will give his daily meds, prozac, gabapentin, hydroxyzine. Will also give metoclopramide 10mg IV. Pt has not vomited since coming into room in ED. Fourth Eval Re-Evaluation Time: 18:46 Change: Improved Comment: Patient is lying face down on stretcher mattress which remains on the floor for pt safety. He is calm and not vomiting. PO to be attempted. Fifth Eval Re-Evaluation Time: 20:30 Change: Unchanged Comment: Pt states he still has nausea. Has drunk fluids. Pt refuses to eat because he wants nausea medication. Pt has not vomited in the ED. Pt's room is strewn with linens, uneaten food, cups. Pt continues to lie on a mattress on the floor. Abd exam: soft +BS, c/o diffuse tenderness on palpation, no guarding , no rebound, nondistended, no masses. Sixth + Eval Re-Evaluation Time: 22:00 Change: Improved Comment: Pt's pain is controlled. He is lying quietly on the mattress on the floor. The room is strewn with items as above. Pt agrees to discharge. His father will pick him up. Complex Multi-Symp Course/Dx Course Of Treatment: Patient is a 53 y/o M presenting to [facility] with complaints of abdominal pain and vomiting. Per triage, "Vomiting for an hour, pt is very dramatic in triage, sticking his finger down his throat , hyperventilating, throwing himself on the floor". Patient repeatedly makes requests for Compazine , stating that it helps with nausea and anxiety. He states that his anxiety is "the worst" at present. He is on the room floor thrashing. Patient was observed by ED staff going back and forth from bathroom to vomit. Patient has multiple previous visits for cyclical vomiting. He reports that Sx onset around 1100 . Patient additionally endorses diarrhea. He denies blood in vomit or stool. Stool has been watery and brown colored. He additionally endorses chills and subjective fever. Patient reports that he has not had any food today, . He has not taken any of his suboxone today. Abdomen: Soft, diffusely tender with no guarding, no rebound, no masses, no distention. Bowel sounds: distant but present in all four quadrants. Pt was agitated in the ED, asking for compazine multiple times, would not lie on usual stretcher in the room, so room made safe for pt, and mattress was placed on the floor for pt. Pt was ambulatory without assistance in the ED. Pt did drink some contrast for the CT abdomen and pelvis. Pt would not eat food, although he was offered multiple choices of food. Bloodwork was obainted. Abnormal values include Hgb 13.1, Hct 38, glucose 113, alk phos 29, lipase 124. UA showed trace ketones. ABD/PEL CT IMPRESSION: NO CT EVIDENCE OF PANCREATITIS OR PERIPANCREATIC FLUID COLLECTIONS. NO OTHER ACUTE PROCESS. NO SIGNIFICANT INTERVAL CHANGE. MODERATE FATTY LIVER. During ED course, patient received fluids, Compazine 10 mg IV, protonix 40 mg IV , Zofran 8 mg IV, Zofran 8 mg PO, reglan 10 mg IV, atarax 50 mg PO, Haldol 5 mg IM, gabapentin 300 mg PO, bendaryl 50 mg IV, and suboxone 4 mg SL FILM. Pt ultimately settled, and pain was controlled and he was discharge to home with his father driving. Patient was discharged to home with Dr. Lee follow up in 1-2 days. - Diagnoses Provider Diagnoses: Abdominal pain, Vomiting, Elevated lipase, Fatty liver - Critical Care Time Critical Care Time: 30-74 min - 30 mins Discharge ED - Sign-Out/Discharge Documenting (check all that apply): Patient Departure - discharge - Discharge Plan Condition: Stable Disposition: HOME Patient Education Materials: Acute Nausea and Vomiting (ED) Referrals: Peter Lee MD [Primary Care Provider] - 2 Days Additional Instructions: You have been given multiple medications for nausea and vomiting and abdominal pain while in the ER today. You had a CT scan that did not show any acute abnormalities. Your lipase was elevated but your pancreas was normal. You will need to continue your current medications, and follow up with Dr. Lee in 1-2 days. Return to the ER if you have any new or worsening symptoms. - Billing Disposition and Condition Condition: STABLE Disposition: Home - Attestation Statements Document Initiated by Del: Yes Documenting Scribe: JOANA KNOTT Provider For Whom Del is Documenting (Include Credential): MARINA RUIZ MD Scribe Attestation: JOANA Leiva, scribed for MARINA RUIZ MD on 02/04/19 at 1955. Scribe Documentation Reviewed: Yes Provider Attestation: The documentation as recorded by the JOANA hu accurately reflects the service I personally performed and the decisions made by , MARINA RUIZ MD Status of Scrjessica Document: Viewed
[2019-01-19 15:47] LABS: AST 21 U/L (13-39); Anion Gap 5 mmol/L (2-11)
[2019-01-19] MEDS ORDERED: Buprenorp/Nalox 4-1 MG FILM SL FILM ONE (15:51)
[2019-01-19] MEDS ORDERED: NS 0.9% 1000 ML** 2,000 ML IV ONE (15:52)
[2019-01-19] MEDS ORDERED: Iohexol 300* (CONTRAST) 10 ML SDV IV ONE (16:21)
[2019-01-19] MEDS ORDERED: Metoclopramide IV* 5 MG/ML 2 ML VIAL IV ONE (16:42)
[2019-01-19] MEDS ORDERED: Gabapentin CAP(*) 300 MG PO ONE (16:43)
[2019-01-19] MEDS ORDERED: PARoxetine HCL TAB* 20 MG PO ONE (16:44)
[2019-01-19] MEDS ORDERED: hydrOXYzine HCL TAB* 50 MG PO ONE (16:44)
[2019-01-19 18:05] LABS: Urine Appearance Cloudy; Urine Bilirubin Negative (Negative); Urine Blood Negative (Negative); Urine Color Yellow; Urine Glucose Negative (Negative); Urine Ketones Trace (Negative); Urine Nitrite Negative (Negative); Urine Protein Negative (Negative); Urine Specific Gravity 1.015 (1.010-1.030); Urine Urobilinogen Negative (Negative)
[2019-01-19] MEDS ORDERED: Pantoprazole IV* 40 MG IV ONE (18:40)
[2019-01-19] MEDS ORDERED: diPHENhydraMINE IV* 50 MG/ML 1 ml VIAL (BENADRYL) IV ONE (19:49)
[2019-01-19] MEDS ORDERED: PROCHLORPERAZINE INJ 5 MG/ML 2 ML VIAL IV ONE (20:45)
[2019-01-19 22:34] VITALS: BP 117/64
== END 2019-01-19 22:34 | disposition home or self-care (01) ==
LOC: ED 13:02
DX: R10.84 Generalized abdominal pain (principal); R74.8 Abnormal levels of other serum enzymes; R11.2 Nausea with vomiting, unspecified; R19.7 Diarrhea, unspecified; R50.9 Fever, unspecified; F41.9 Anxiety disorder, unspecified; K76.0 Fatty (change of) liver, not elsewhere classified; Z87.891 Personal history of nicotine dependence
CPT/HCPCS: 36415; 74177; 80053; 81003; 83605; 83690; 85025; 86140; 96361; 96372; 96374; 96375; 99283; A9270-GY; J0780; J1200; J1630; J2765; Q9967

== ENCOUNTER 2019-01-20 04:38 | Emergency (ER) | payer MEDICAID ==
[2019-01-20] MEDS ORDERED: Prochlorperazine TAB* 10 MG PO ONE (05:24)
--- NOTE | 2019-01-20 06:14 | ED ---
Abdominal Pain/Male - HPI Summary HPI Summary: Pt is a 53 y/o M presenting to the ED for a chief complaint of abdominal pain. The pt rates the abdominal pain as 10/10 in severity. Pt is complaining of severe nausea and vomiting that begins after episodes of diarrhea. Pt also admits chills, dizziness, and RUBIO. Pt rates the RUBIO as a 10/10 in severity. Pt denies CP. Pt states he has a PMHx of vomiting syndrome. Pt denies tobacco or alcohol use. Pt smokes marijuana 3-4 times a week recreationally. Pt states was [place] [facility] [place]. Pt is a sign out to Dr. Morataya at 07:00 on 01/20/19, shift change. - History of Current Complaint Chief Complaint: EDNauseaVomitDiarrh Stated Complaint: STOMACH PAIN PER PT Time Seen by Provider: 01/20/19 05:12 Hx Obtained From: Patient Onset/Duration: Sudden Onset, Lasting Hours, Still Present Timing: Lasting Hours Severity Initially: Severe Severity Currently: Severe Pain Intensity: 10 Pain Scale Used: 0-10 Numeric Location: Diffuse Radiates: No Aggravating Factor(s): Nothing Alleviating Factor(s): Nothing Associated Signs And Symptoms: Positive: Dizzy, Nausea, Vomiting, Diarrhea, Other - Positive RUBIO and chills. Negative: Chest Pain - Allergies/Home Medications Allergies/Adverse Reactions: Allergies Allergy/AdvReac Type Severity Reaction Status Date / Time No Known Allergies Allergy Verified 12/06/18 12:53 PMH/Surg Hx/FS Hx/Imm Hx Previously Healthy: Yes Endocrine/Hematology History: Reports: Hx Anemia Denies: Hx Diabetes Cardiovascular History: Denies: Hx Congestive Heart Failure, Hx Hypertension, Hx Pacemaker/ICD Respiratory History: Denies: Hx Asthma GI History: Reports: Hx Gall Bladder Disease, Hx Gastroesophageal Reflux Disease , Other GI Disorders - pancreatitis History: Denies: Hx Renal Disease Musculoskeletal History: Reports: Hx Back Problems - chronic low back pain, Hx Orthopedic Injury - left shoulder injury, Other Musculoskeletal History - ACL injury on R knee Sensory History: Reports: Hx Contacts or Glasses - for reading Denies: Hx Hearing Aid Opthamlomology History: Reports: Hx Contacts or Glasses - for reading Neurological History: Denies: Hx Headaches Psychiatric History: Reports: Hx Anxiety, Hx Depression Denies: Hx Panic Disorder - Surgical History Surgical History: Yes Surgery Procedure, Year, and Place: ACL REPAIR RT KNEE - Immunization History Date of Tetanus Vaccine: 09/15/2013 Infectious Disease History: No Infectious Disease History: Denies: Traveled Outside the [place] in Last 30 Days - Family History Known Family History: Negative: Hypertension - Social History Alcohol Use: None Hx Substance Use: Yes Substance Use Type: Reports: Marijuana Substance Use Comment - Amount & Last Used: oxycontin 10mg bid; suboxone 4mg TID Hx Tobacco Use: No Smoking Status (MU): Former Smoker Review of Systems Positive: Chills Negative: Chest Pain Positive: Abdominal Pain - Diffuse, Vomiting, Diarrhea, Nausea Neurological: Other - Positive dizziness Positive: Headache All Other Systems Reviewed And Are Negative: Yes Physical Exam - Summary Physical Exam Summary: Appearance: Well-appearing, Well-nourished, lying in bed comfortably Skin: Warm, dry, no obvious rash Eyes: sclera anicteric, no conjunctival pallor ENT: mucous membranes moist, pharynx appears normal Neck: Supple, nontender Respiratory: Clear to auscultation, no signs of respiratory distress Cardiovascular: Normal S1, S2. No murmurs. Normal distal pulses in tibial and radial bilaterally. Abdomen: Soft, nontender, normal active bowel sounds present Musculoskeletal: Normal, Strength/ROM Intact Neurological: A&Ox3, awake and alert, mentation is normal, speech is fluent and appropriate Psychiatric: affect is normal, does not appear anxious or depressed Triage Information Reviewed: Yes Vital Signs On Initial Exam: Initial Vitals Temp Pulse Resp BP Pulse Ox 98.4 F 75 20 140/92 98 01/20/19 04:39 01/20/19 04:39 01/20/19 04:39 01/20/19 04:39 01/20/19 04:39 Vital Signs Reviewed: Yes Procedures - Sedation Patient Received Moderate/Deep Sedation with Procedure: No Diagnostics - Vital Signs Vital Signs Temp Pulse Resp BP Pulse Ox 01/20/19 05:00 57 96 01/20/19 04:59 59 135/78 96 01/20/19 04:39 98.4 F 75 20 140/92 98 - Laboratory Lab Statement: Any lab studies that have been ordered have been reviewed, and results considered in the medical decision making process. Re-Evaluation - Re-Evaluation 1st re-eval Re-Evaluation Time: 09:09 Change: Improved Comment: Pt states he would like to go home and he feels better. Abdominal Pain Male Course/Dx - Course Course Of Treatment: Pt is a 53 y/o M presenting to the ED for a chief complaint of abdominal pain. The pt rates the abdominal pain as 10/10 in severity. Pt is complaining of severe nausea and vomiting that begins after episodes of diarrhea. Pt also admits chills, dizziness, and RUBIO. Pt rates the RUBIO as a 10/10 in severity. Pt denies CP. Pt states he has a PMHx of vomiting syndrome. Pt denies tobacco or alcohol use. Pt smokes marijuana 3-4 times a week recreationally. Pt states was previously seen [place] [facility] [place]. On exam, pt had unremarkable findings. In the ED course, pt was given haloperidol 10 mg IVPB, prochlorperazine 10 mg PO, and fluids. Pt will be discharged with a diagnosis of cyclic vomiting syndrome. Pt is a sign out to Dr. Morataya at 07: 00 on 01/20/19, shift change. - Diagnoses Provider Diagnoses: Cyclic vomiting syndrome Discharge ED - Sign-Out/Discharge Documenting (check all that apply): Patient Departure - Discharge, Sign-Out Patient Signing out patient TO: Braden Morataya - 07:00 on 01/20/19 - Discharge Plan Condition: Improved Disposition: HOME Prescriptions: Prochlorperazine TAB* [Compazine Tab*] 10 mg PO Q6H PRN #20 tab PRN Reason: Nausea Patient Education Materials: Cyclic Vomiting Syndrome (ED) Referrals: Peter Lee MD [Primary Care Provider] - Additional Instructions: The compazine seems to work ok for you. Ideally if we can control your symptoms through the flare up with oral medicine at home, that is much better for you as being in a hospital can cause complications in itself. Stick to a clear liquid diet just to keep yourself hydrated until you start to feel better and take the medicine either orally or by suppository every 6 hrs. - Billing Disposition and Condition Condition: IMPROVED Disposition: Home - Attestation Statements Document Initiated by Scribe: Yes Documenting Scribe: Jaimee Barnett Provider For Whom Scribe is Documenting (Include Credential): Mike Thompson MD Scribe Attestation: I, Jaimee Barnett, scribed for Mike Thompson MD on 02/10/19 at 1831. Scribe Documentation Reviewed: Yes Provider Attestation: The documentation as recorded by the scribe, Jaimee Barnett accurately reflects the service I personally performed and the decisions made by me, Mike Thompson MD Status of Scribe Document: Viewed
[2019-01-20] MEDS ORDERED: Haloperidol INJ IV/IM* 5 MG/ML AMP IVPB ONE (06:45)
[2019-01-20] MEDS: NS 0.9% 1000 ML** 2,000 ML IV ONE ×2 (06:52→07:46)
--- NOTE | 2019-01-20 07:26 | ED ---
Progress - Progress Note Progress Note: Pt is a signout from Dr. Thompson at 0700 on 01/20/19 pending re-evaluation. Re-Evaluation - Re-Evaluation 1st re-eval Re-Evaluation Time: 09:09 Change: Improved Comment: Pt states he would like to go home and he feels better. Course/Dx - Course Course Of Treatment: Patient was signed out from Dr. Thompson. Patient is well- known to the hospital for cyclic vomiting. Patient had blood performed which is grossly unremarkable. Patient had negative CT scan the day prior by another ED physician. On my evaluation, patient states she's had 10 episodes this year that last roughly 48 hours. Patient smokes marijuana roughly 3 times per week and has been doing well for 30 years. Patient had a benign exam. Patient continued to have some nausea after the Haldol and by mouth Compazine. Patient was given capsaicin cream and Maalox which helped his pain. Patient had continued nausea with no vomiting so is given 1 dose of Ativan. Patient felt comfortable being discharged and was encouraged to return if he had worsening symptoms. Patient is also educated on cessation of marijuana and how he will continue his symptoms like this for the rest of his life if he smokes at all. Patient was understanding of this - Diagnoses Provider Diagnoses: Cyclic vomiting syndrome Discharge ED - Sign-Out/Discharge Documenting (check all that apply): Patient Departure, Receiving Sign-Out Receiving patient FROM: Mike Thompson - Discharge Plan Condition: Improved Disposition: HOME Prescriptions: Prochlorperazine TAB* [Compazine Tab*] 10 mg PO Q6H PRN #20 tab PRN Reason: Nausea Patient Education Materials: Cyclic Vomiting Syndrome (ED) Referrals: Peter Lee MD [Primary Care Provider] - Additional Instructions: The compazine seems to work ok for you. Ideally if we can control your symptoms through the flare up with oral medicine at home, that is much better for you as being in a hospital can cause complications in itself. Stick to a clear liquid diet just to keep yourself hydrated until you start to feel better and take the medicine either orally or by suppository every 6 hrs. - Billing Disposition and Condition Condition: IMPROVED Disposition: Home - Attestation Statements Document Initiated by Scribe: Yes Documenting Scribe: Nieves Peck Provider For Whom Scribe is Documenting (Include Credential): Braden Morataya MD. Scribe Attestation: I, Nieves Peck, scribed for Braden Morataya MD. on 01/20/19 at 1202. Scribe Documentation Reviewed: Yes Provider Attestation: The documentation as recorded by the scribe, Nieves Peck accurately reflects the service I personally performed and the decisions made by me, Braden Morataya MD. Status of Scribe Document: Viewed
[2019-01-20] MEDS ORDERED: Al Hydrox/Mg Hydrox/Simet LIQ* 30 ML UDC PO ONE (07:30)
[2019-01-20] MEDS ORDERED: Capsaicin 0.025% CREAM* 60 GM TOPICAL ONE (07:30)
[2019-01-20] MEDS ORDERED: Lorazepam PYXIS KEY PRN (08:36)
[2019-01-20] MEDS ORDERED: LORazepam INJ* 2 MG/ML 1 ML VIAL IV PUSH ONE (08:36)
[2019-01-20] MEDS ORDERED: Acetaminophen TAB* 325 MG PO ONE (08:39)
[2019-01-20] MEDS ORDERED: Lorazepam PYXIS KEY ONE (08:41)
[2019-01-20 09:19] VITALS: BP 102/57
== END 2019-01-20 09:12 | disposition home or self-care (01) ==
LOC: ED 04:38
DX: R11.15 Cyclical vomiting syndrome unrelated to migraine (principal); D64.9 Anemia, unspecified; K21.9 Gastro-esophageal reflux disease without esophagitis; F41.9 Anxiety disorder, unspecified; F32.9 Major depressive disorder, single episode, unspecified; Z87.891 Personal history of nicotine dependence; Z79.899 Other long term (current) drug therapy
CPT/HCPCS: 96361; 96374; 96375; 99283; A9270-GY; J1630; J2060; Q0164

== ENCOUNTER 2019-01-20 17:51 | Emergency (ER) | payer MEDICAID ==
[2019-01-20] MEDS ORDERED: Ondansetron INJ* 2 MG/ML VIAL IV ONE (20:43)
[2019-01-20] MEDS ORDERED: NS 0.9% 1000 ML** 1,000 ML IV ONE (20:43)
--- NOTE | 2019-01-20 20:55 | ED ---
Complex/Multi-Sys Presentation - HPI Summary HPI Summary: 53 year old M presenting to [facility] complains of n/v, headache, diffuse abdominal pain, chills since yesterday at 11:00. Reports lightheadedness when he stoof up earlier. Reports diarrhea since this morning. Denies fever. The patient rates the pain 10/10 in severity. Symptoms aggravated by nothing. Symptoms alleviated by nothing. States he has been putting his head against cold windows any chance he gets to help relieve nausea. States he was seen here yesterday and was discharged, and came back to the ED and was discharged again. States he had CT Abd/Pel done yesterday which was normal. States he has had Compazine in the past which has helped. No abdominal surgeries. States no one sick at home. Hx marijuana use. - History Of Current Complaint Chief Complaint: EDNauseaVomitDiarrh Time Seen by Provider: 01/20/19 20:43 Hx Obtained From: Patient Onset/Duration: Lasting Days - 2, Still Present Timing: Constant Severity Currently: Severe - 10/10 Aggravating Factor(s): Nothing Alleviating Factor(s): Nothing - Allergies/Home Medications Allergies/Adverse Reactions: Allergies Allergy/AdvReac Type Severity Reaction Status Date / Time No Known Allergies Allergy Verified 12/06/18 12:53 PMH/Surg Hx/FS Hx/Imm Hx Endocrine/Hematology History: Reports: Hx Anemia Denies: Hx Diabetes Cardiovascular History: Denies: Hx Congestive Heart Failure, Hx Hypertension, Hx Pacemaker/ICD Respiratory History: Denies: Hx Asthma GI History: Reports: Hx Gall Bladder Disease, Hx Gastroesophageal Reflux Disease , Other GI Disorders - pancreatitis History: Denies: Hx Renal Disease Musculoskeletal History: Reports: Hx Back Problems - chronic low back pain, Hx Orthopedic Injury - left shoulder injury, Other Musculoskeletal History - ACL injury on R knee Sensory History: Reports: Hx Contacts or Glasses - for reading Denies: Hx Hearing Aid Opthamlomology History: Reports: Hx Contacts or Glasses - for reading Neurological History: Denies: Hx Headaches Psychiatric History: Reports: Hx Anxiety, Hx Depression Denies: Hx Panic Disorder - Surgical History Surgery Procedure, Year, and Place: ACL REPAIR RT KNEE - Immunization History Date of Tetanus Vaccine: 09/15/2013 Infectious Disease History: No Infectious Disease History: Denies: Traveled Outside the [place] in Last 30 Days - Family History Known Family History: Negative: Hypertension - Social History Alcohol Use: None Hx Substance Use: Yes Substance Use Type: Reports: Marijuana Substance Use Comment - Amount & Last Used: oxycontin 10mg bid; suboxone 4mg TID Hx Tobacco Use: Yes Smoking Status (MU): Former Smoker Review of Systems Positive: Chills. Negative: Fever Positive: Abdominal Pain, Vomiting, Diarrhea, Nausea All Other Systems Reviewed And Are Negative: Yes Physical Exam - Summary Physical Exam Summary: Constitutional: Well-developed, Well-nourished, Alert. (-) Distressed. Slightly tremulous. Skin: Warm, Dry HENT: Normocephalic; Atraumatic Eyes: Conjunctiva normal Neck: Musculoskeletal ROM normal neck. (-) JVD, (-) Stridor, (-) Nuchal rigidity Cardio: Rhythm regular, rate normal, Heart sounds normal; Intact distal pulses; Radial pulses are 2+ and symmetric. (-) Murmur Pulmonary/Chest wall: Effort normal. (-) Respiratory distress, (-) Wheezes, (-) Rales Abd: Soft, (-) tenderness, (-) Distension, (-) Guarding, (-) Rebound Musculoskeletal: (-) Edema Lymph: (-) Cervical adenopathy Neuro: Alert, Oriented x3 Psych: Mood and affect Normal Triage Information Reviewed: Yes Vital Signs On Initial Exam: Initial Vitals Temp Pulse Resp BP Pulse Ox 97.9 F 61 18 150/92 98 01/20/19 18:04 01/20/19 18:04 01/20/19 18:04 01/20/19 18:04 01/20/19 18:04 Vital Signs Reviewed: Yes Procedures - Sedation Patient Received Moderate/Deep Sedation with Procedure: No Diagnostics - Vital Signs Vital Signs Temp Pulse Resp BP Pulse Ox 01/20/19 18:04 97.9 F 61 18 150/92 98 - Laboratory Result Diagrams: 01/20/19 21:14 01/20/19 21:13 Lab Statement: Any lab studies that have been ordered have been reviewed, and results considered in the medical decision making process. - EKG 2100 Cardiac Rate: NL - 63 BPM EKG Rhythm: Sinus Rhythm Re-Evaluation - Re-Evaluation First Eval Re-Evaluation Time: 21:40 Comment: informed of lab findings. agrees to try PO Second Eval Re-Evaluation Time: 22:10 Change: Improved - tolerated PO. Dc to home. advised to stop smoking marijuana Complex Multi-Symp Course/Dx Course Of Treatment: 53-year-old male history of marijuana hematemesis presents with nausea vomiting. - Seen yesterday for similar, given fluids and Zofran discharge to home. Patient states he had recurrent vomiting at home. Also reporting a mild headache, no dizziness or passing out. Reporting generalized abdominal cramping. Patient states he has a history of hyperemesis, per review records a/w marijuana. Patient admits to marijuana use. Will check labs, give IVF and haldol. - recent neg CT this am, no new symptoms. Suspect this is 2/2 to his hyperemesis. - Diagnoses Provider Diagnoses: Hyperemesis Discharge ED - Sign-Out/Discharge Documenting (check all that apply): Patient Departure - Discharge - Discharge Plan Condition: Stable Disposition: HOME Patient Education Materials: Acute Nausea and Vomiting (ED) Referrals: Peter Lee MD [Primary Care Provider] - Additional Instructions: You were seen in the emergency department for vomiting. Please do not use marijuana as this can make your vomiting worse. If any studies were not completed at the time of discharge you will be called with the relevant results. Please follow up with your primary care doctor in next 2-3 days and return to emergency department for worsening or concerning symptoms. It was a pleasure taking care of you today. - Billing Disposition and Condition Condition: STABLE Disposition: Home - Attestation Statements Document Initiated by Del: Yes Documenting Scribe: Veronika Wall Provider For Whom Del is Documenting (Include Credential): Alice Pal MD Scribe Attestation: Veronika Leiva, scribed for Alice Pal MD on 01/20/19 at 2217. Scribe Documentation Reviewed: Yes Provider Attestation: The documentation as recorded by the Veronika hu accurately reflects the service I personally performed and the decisions made by , Alice Pal MD Status of Scribe Document: Viewed
[2019-01-20] MEDS ORDERED: Haloperidol INJ IV/IM* 5 MG/ML AMP IV SLOW PU ONE (20:58)
[2019-01-20 21:21] LABS: ABS Lymphocytes 1.1 10^3/ul (1.0-4.8); ABS Monocytes 0.4 10^3/ul (0-0.8); Hematocrit 35 % (42-52); Lymphocyte % 11.7 %; Mean Corpuscular HGB Conc 35 g/dL (31-36); Mean Corpuscular Hemoglobin 31 pg (27-31); Mean Corpuscular Volume 89 fL (80-94); Mean Platelet Volume 9.1 fL (7.4-10.4); Nucleated Red Blood Cells % 0.1; Platelet Count 254 10^3/uL (150-450); Red Cell Distribution Width 14 % (10-15); White Blood Count 9.6 10^3/uL (3.5-10.8)
[2019-01-20 21:36] LABS: Albumin/Globulin Ratio 1.8 (1-3); BUN/Creatinine Ratio 10.2 (8-20); Calcium 8.7 mg/dL (8.6-10.3); EGFR African American 110.5 (>60); EGFR Non-African American 91.3 (>60); Globulin 2.2 g/dL (2-4); Potassium 3.5 mmol/L (3.5-5.0); Total Bilirubin 0.6 mg/dL (0.2-1.0); Total Protein 6.2 g/dL (6.4-8.9)
[2019-01-20 22:45] VITALS: BP 138/83
== END 2019-01-20 22:24 | disposition home or self-care (01) ==
LOC: ED 17:51
DX: R11.10 Vomiting, unspecified (principal); D64.9 Anemia, unspecified; K21.9 Gastro-esophageal reflux disease without esophagitis; F41.9 Anxiety disorder, unspecified; F32.9 Major depressive disorder, single episode, unspecified; Z87.891 Personal history of nicotine dependence; Z79.899 Other long term (current) drug therapy
CPT/HCPCS: 36415; 80053; 85025; 93005; 96361; 96374; 96375; 99282; J1630; J2405

== ENCOUNTER 2019-05-10 12:19 | Observation (INO) | payer MEDICAID, OTHER ==
--- OUTSIDE RECORDS SUMMARY | 2019-05-10 14:37 | XMS REPORT | Continuity of Care Document ---
:1965 External Reference #:[id number] Author Name Stephon Casillas, DO Address [address] [place] [id number] Care Team Providers Name Role Phone Peter Lee MD Care Team Information Veterans Service Representative [phone] Problems Description No Information Available Social History Type Date Description Comments Sex Unknown Tobacco Use Start: Unknown Patient has never smoked Smoking Status Reviewed: 03/01/19 Patient has never smoked Allergies, Adverse Reactions, Alerts Description No Known Drug Allergies Medications Active Medications SIG Qnty Indications Ordering Date Provider Omeprazole 1 tablet by 30capchino Casillas, 03/27/[address] mouth every DO morning Vitamin D3 1 capsule daily E55.9 Unknown 09/16/2017 5000Unit Capsules Suboxone 1/2 film by 45units M54.5 Kristalcomundo, 09/26/2015 8-2mg Film mouth 3x/day; MD Peter suboxone prescriber# [id number]; may fill on 09/19/17 Gabapentin Take One 90caps M54.5 Silcomundo, 04/15/2015 300mg Capsules Capsule By MD Peter Mouth Three Times A Day For Pain Hydroxyzine HCL Take One To Two 200tabs Silcomundo, 03/28/2015 25mg Tablets Tablets By MD Peter Mouth Four Times A Day as Needed For Anxiety Prochlorperazine Maleate Take One Tablet Unknown 10mg By Mouth Every Tablets 6 Hours as Needed For Nausea Immunizations Description No Information Available Vital Signs Date Vital Result Comment 03/01/2019 10:38am Height 70 inches 5'10" Weight 175.00 lb BP Systolic 142 mmHg BP Diastolic 81 mmHg Heart Rate 66 /min BMI (Body Mass Index) 25.1 kg/m2 10/26/2018 10:58am Height 70 inches 5'10" Weight 182.00 lb BMI (Body Mass Index) 26.1 kg/m2 Results Description No Information Available Procedures Description No Information Available Medical Devices Description No Information Available Encounters Type Date Location Provider Dx Diagnosis Office Visit 10/26/2018 Gastroenterology Stephon Westrdan, K21.9 Gastro- esophageal 10:45a [facility] reflux disease without esophagitis G43.A0 Cyclical vomiting, in migraine, not intractable R11.2 Nausea with vomiting, unspecified R10.13 Epigastric pain K59.00 Constipation, unspecified F41.9 Anxiety disorder, unspecified Assessments Date Code Description Provider 03/01/2019 K30 Functional dyspepsia Stephon Sonja, DO 03/01/2019 F41.9 Anxiety disorder, unspecified Stephon Sonja, DO 03/01/2019 K29.70 Gastritis, unspecified, without bleeding Stephon Sonja, DO 10/26/2018 K21.9 Gastro-esophageal reflux disease without Stephon Sonja, DO esophagitis 10/26/2018 G43.A0 Cyclical vomiting, not intractable Stephon Sonja, DO 10/26/2018 R11.2 Nausea with vomiting, unspecified Stephon Sonja, DO 10/26/2018 R10.13 Epigastric pain Stephon Sonja, DO 10/26/2018 K59.00 Constipation, unspecified Stephon Sonja, DO 10/26/2018 F41.9 Anxiety disorder, unspecified Stephon Sonja, DO Plan of Treatment No Information Available Functional Status Description No Information Available Mental Status Description No Information Available Referrals Description No Information Available
--- OUTSIDE RECORDS SUMMARY | 2019-05-10 14:37 | XMS REPORT | Continuity of Care Document ---
:1965 External Reference #:[id number] Author Name Peter Lee M.D. (transmitted by agent of provider Connie Mata) Address [address] [place] [address] [address] [place] [address] Care Team Providers Name Role Phone HCP given Care Team Information Customer Specialist Unavailable Verónica Harley MD - Sports Medicine Care Team Information Customer Specialist [phone] [facility] - Care Team Information Customer Specialist [phone] [facility] - Care Team Information Customer Specialist [phone] Gastroenterology Problems Active Problems Provider Date Low [...] a former smoker Unknown Smoking Status Reviewed: 02/24/19 Patient is a former smoker Allergies, Adverse Reactions, Alerts Description No Known Drug Allergies Medications Active Medications SIG Qnty Indications Ordering Date Provider Buprenorphine /2 film 45units M51.36 Peter Lee, 02/24/2019 Hydrochloride/Naloxon dissolved in M.D. e Hydrochloride mouth 3x/day; 8-2mg prescriber# [id number]; rx due 04/25/19 F11.20 M54.5 Paroxetine HCL take one tablet by 30tabs F41.0 Peter Lee, 01/22/2019 40mg Tablets mouth every day for M.D. anxiety Prochlorperazine Maleate take one tablet by 30tabs R11.2 Peter Lee, 01/20/2019 10mg mouth every 6 hours M.D. Tablets as needed for nausea Capsaicin prn for stomach rub 60gm Peter Lee, 01/19/2019 0.025% Cream prn M.D. Prochlorperazine insert one 12units R11.2 Peter Lee, [...] Day as Needed For Anxiety History Medications Suboxone 1/2 by mouth 45units M51.36 Peter Lee, 12/22/2018 - 8-2mg 3x/day; suboxone M.D. 02/24/2019 Film prescriber# [id number] F11.20 M54.5 Paroxetine HCL take 1 tablet by 30tabs F41.0 Peter Lee, 12/22/2018 - 30mg mouth daily for M.D. 01/22/2019 Tablets anxiety Paroxetine HCL 1 1/2 tabs by F41.0 Unknown 12/18/2018 - 20mg mouth every day 12/22/2018 Tablets Zubsolv 1 tab by mouth 42tabs M54.5 Peter Lee, 12/15/2018 - 2.9-0.71mg three times a M.D. 12/26/2018 Tablets Sub day; take as directed; prescriber# [id number] M51.36 F11.20 Paroxetine HCL 1/2 tablet daily to 30tabs F41.0 Peter Lee, 2018 - start; increase to 1 M.D. 12/18/2018 20mg Tablets daily after 1 week; for anxiety/panic Medications Administered in Office Medication SIG Qnty Indications Ordering Provider Date Injection Of Phenergan 50 mg Peter Lee M.D. 06/30/2018 Injection SC/Im Injections Peter Lee M.D. 06/30/2018 Injection Immunizations CPT Code Status Date Vaccine Lot # [id number] Given 02/24/2019 Influenza Virus Vaccine, Quadrivalent, Split, [id number] Preservative Free [id number] Given 12/22/2018 Shingrix Zoster (Shingles) Vaccine (HZV) [id number] Recomb,Subnit,Adjuvanted 09712 Given 11/17/2017 Shingrix Zoster (Shingles) Vaccine (HZV) [id number] Recomb,Subnit,Adjuvanted [id number] Refused 11/20/2016 Influenza Virus Vaccine, Quadrivalent, Split, Preservative Free 17221 Refused 12/19/2015 Influenza Virus Vaccine, Quadrivalent, Split, Preservative Free Vital Signs Date Vital Result Comment 04/26/2019 12:09pm BP Systolic 118 mmHg BP Diastolic 78 mmHg Weight 184.00 lb 02/24/2019 11:25am BP Systolic 120 mmHg BP Diastolic 80 mmHg Height 70.5 inches 5'10.50" Weight 177.50 lb BMI (Body Mass Index) 25.1 kg/m2 Results Test Acquired Date Facility Test Result H/L Range Note CBC Auto 01/20/2019 [facility] White Blood 9.6 10^3/uL Normal 3.5- 10.8 Diff [phone] Count Red Blood Count 3.90 10^6/uL Low 4.18-5.48 Hemoglobin 12.0 g/dL Low 14.0-18.0 Hematocrit 35 % Low 42-52 Mean Corpuscular Volume 89 fL Normal 80-94 Mean Corpuscular Hemoglobin 31 pg Normal 27-31 Mean Corpuscular HGB Conc 35 g/dL Normal 31-36 Red Cell Distribution Width 14 % Normal 10-15 Platelet Count 254 10^3/uL Normal 150-450 Mean Platelet Volume 9.1 fL Normal 7.4-10.4 Abs Neutrophils 8.0 10^3/uL High 1.5-7.7 Abs Lymphocytes 1.1 10^3/uL Normal 1.0-4.8 Abs Monocytes 0.4 10^3/uL Normal 0-0.8 Abs Eosinophils 0.0 10^3/uL Normal 0-0.6 Abs Basophils 0.0 10^3/uL Normal 0-0.2 Abs Nucleated RBC 0.0 10^3/uL Granulocyte % 83.4 % Lymphocyte % 11.7 % Monocyte % 4.7 % Eosinophil % 0.0 % Basophil % 0.2 % Nucleated Red Blood Cells % 0.1 Comp Metabolic Panel 01/20/2019 [facility] Sodium 138 mmol/L Normal 135-145 [phone] Potassium 3.5 mmol/L Normal 3.5-5.0 Chloride 109 mmol/L Normal 101-111 Co2 Carbon Dioxide 25 mmol/L Normal 22-32 Anion Gap 4 mmol/L Normal 2-11 Glucose 111 mg/dL High 70-100 Blood Urea Nitrogen 9 mg/dL Normal 6-24 Creatinine 0.88 mg/dL Normal 0.67-1.17 BUN/Creatinine Ratio 10.2 Normal 8-20 Calcium 8.7 mg/dL Normal 8.6-10.3 Total Protein 6.2 g/dL Low 6.4-8.9 Albumin 4.0 g/dL Normal 3.2-5.2 Globulin 2.2 g/dL Normal 2-4 Albumin/Globulin Ratio 1.8 Normal 1-3 Total Bilirubin 0.60 mg/dL Normal 0.2-1.0 Alkaline Phosphatase 27 U/L Low 34-104 Alt 15 U/L Normal 7-52 Ast 27 U/L Normal 13-39 Egfr Non- 91.3 >60 Egfr 110.5 >60 1 CBC Auto Diff 01/19/2019 [facility] White Blood 5.6 10^3/uL Normal 3.5-10.8 [phone] Count Red Blood Count 4.29 10^6/uL Normal 4.18-5.48 Hemoglobin 13.1 g/dL Low 14.0-18.0 Hematocrit 38 % Low 42-52 Mean Corpuscular Volume 90 fL Normal 80-94 Mean Corpuscular Hemoglobin 31 pg Normal 27-31 Mean Corpuscular HGB Conc 34 g/dL Normal 31-36 Red Cell Distribution Width 14 % Normal 10-15 Platelet Count 352 10^3/uL Normal 150-450 Mean Platelet Volume 8.8 fL Normal 7.4-10.4 Abs Neutrophils 2.5 10^3/uL Normal 1.5-7.7 Abs Lymphocytes 2.6 10^3/uL Normal 1.0-4.8 Abs Monocytes 0.4 10^3/uL Normal 0-0.8 Abs Eosinophils 0.2 10^3/uL Normal 0-0.6 Abs Basophils 0.0 10^3/uL Normal 0-0.2 Abs Nucleated RBC 0.0 10^3/uL Granulocyte % 44.0 % Lymphocyte % 46.2 % Monocyte % 6.6 % Eosinophil % 2.7 % Basophil % 0.5 % Nucleated Red Blood Cells % 0.0 Laboratory test 01/19/2019 [facility] Lactic Acid 2.0 mmol/L Normal 0.5-2.0 2 finding [phone] Comp Metabolic 01/19/2019 [facility] Sodium 141 mmol/L Normal 135- 145 Panel [phone] Chloride 109 mmol/L Normal 101-111 Co2 Carbon Dioxide 27 mmol/L Normal 22-32 Glucose 113 mg/dL High 70-100 Blood Urea Nitrogen 18 mg/dL Normal 6-24 Creatinine 0.96 mg/dL Normal 0.67-1.17 BUN/Creatinine Ratio 18.8 Normal 8-20 Calcium 9.3 mg/dL Normal 8.6-10.3 Total Protein 6.9 g/dL Normal 6.4-8.9 Albumin 4.5 g/dL Normal 3.2-5.2 Globulin 2.4 g/dL Normal 2-4 Albumin/Globulin Ratio 1.9 Normal 1-3 Total Bilirubin 0.30 mg/dL Normal 0.2-1.0 Alkaline Phosphatase 29 U/L Low 34-104 Alt 13 U/L Normal 7-52 Egfr Non- 82.6 >60 Egfr 99.9 >60 3 Potassium 4.0 mmol/L Normal 3.5-5.0 Anion Gap 5 mmol/L Normal 2-11 Ast 21 U/L Normal 13-39 Laboratory test finding 01/19/2019 [facility] Lipase 124 U/L High 11.0-82.0 [phone] C Reactive Protein < 1.00 mg/L Normal <8.01 Urinalysis Profile 01/19/2019 [facility] Urine Color Yellow [phone] Urine Appearance Cloudy Urine Specific Steward[place] 1.015 Normal 1.010-1.030 Urine pH 9.0 Normal 5-9 Urine Urobilinogen Negative Negative Urine Ketones Trace Abnormal Negative Urine Protein Negative Negative Urine Leukocytes Negative Negative Urine Blood Negative Negative Urine Nitrite Negative Negative Urine Bilirubin Negative Negative Urine Glucose Negative Negative CBC Auto Diff 12/06/2018 [facility] White Blood 4.2 10^3/uL Normal 3.5-10.8 [phone] Count Red Blood Count 4.13 10^6/uL Low [...] Cells % 0.1 Comp Metabolic Panel 12/06/2018 [facility] Sodium 139 mmol/L Normal 135-145 [phone] Potassium 3.5 mmol/L Normal 3.5-5.0 Chloride 105 [...] Egfr Non- 78.8 >60 Egfr 95.3 >60 4 Laboratory test finding 12/06/2018 [facility] Magnesium 1.6 mg/dL Low 1.9-2.7 [phone] Lipase 77 U/L Normal 11.0-82.0 C Reactive Protein 1.05 mg/L Normal <8.01 Lactic Acid 2.1 mmol/L Critical high 0.5-2.0 5 Urinalysis Profile 12/06/2018 [facility] Urine Color Yellow [phone] Urine Appearance Cloudy Urine Specific Steward[place] 1.024 Normal 1.010-1.030 Urine pH 5.0 Normal 5-9 Urine Urobilinogen Negative Negative Urine Ketones 2+ Abnormal Negative Urine Protein 1+(30 mg/dL) Abnormal Negative Urine Leukocytes Negative Negative Urine Blood Negative Negative Urine Nitrite Negative Negative Urine Bilirubin Negative Negative Urine Glucose Negative Negative Urine White Blood Cell Absent Absent Urine Red Blood Cell Absent Absent Urine Bacteria Absent Absent 1 Because ethnic data is not always [...] 5 Kidney failure <15 (or dialysis) 2 [facility] Severe Sepsis and Septic Shock Management [...] 5 Kidney failure <15 (or dialysis) 4 Because ethnic data is not always [...] 5 Kidney failure <15 (or dialysis) 5 Critical Result LACT:2.1 Called to [id number] at: 14:05:49 by:[id number] Read back by:[id number] [facility] Severe Sepsis and Septic Shock Management Bundle Measure requires all lactic acids initially measuring >2.0 mmol/L be repeated. Procedures Date Code Description Status 03/26/2018 [id number] Colonoscopy Completed Medical Devices Description No Information Available Encounters Type Date Location Provider Dx Diagnosis Office Visit 04/26/2019 Main Office Peter Lee F11.20 Opioid dependence, 11:45a M.DMartin uncomplicated F41.0 Panic disorder [episodic paroxysmal anxiety] R11.2 Nausea with vomiting, unspecified M51.36 Other intervertebral disc degeneration, lumbar region M54.5 Low back pain Office Visit 02/24/2019 11:15a Main Office Jesus F11.20 Opioid Peter gutierrez M.D. uncomplicated F41.0 Panic disorder [episodic paroxysmal anxiety] R11.2 Nausea with vomiting, unspecified Z23 Encounter for immunization Z68.25 Body mass index (BMI) 25.0-25.9, adult Office Visit 01/22/2019 1:45p Main Office Jesus F11.20 Opioid Peter gutierrez M.D. uncomplicated F41.0 Panic disorder [episodic paroxysmal anxiety] R11.2 Nausea with vomiting, unspecified Office Visit 12/22/2018 11:15a Main Office Peter Lee, R11.2 Nausea with M.D. vomiting, unspecified F41.0 Panic disorder [episodic paroxysmal anxiety] F11.20 Opioid dependence, uncomplicated M51.36 Other intervertebral disc degeneration, lumbar region M54.5 Low back pain Z23 Encounter for immunization Z41.8 Encntr for oth proc for purpose oth [facility] Office Visit 11/18/2018 11:00a Main Office Jesus F11.20 Opioid Peter gutierrez M.D. uncomplicated M51.36 Other intervertebral disc degeneration, lumbar region M54.5 Low back pain K21.0 Gastro-esophageal reflux disease with esophagitis R11.2 Nausea with vomiting, unspecified F41.0 Panic disorder [episodic paroxysmal anxiety] Z23 Encounter for immunization Assessments Date Code Description Provider 04/26/2019 F11.20 Opioid dependence, uncomplicated Peter Lee M.D. 04/26/2019 F41.0 Panic disorder [episodic paroxysmal anxiety] Peter Lee M.D. 04/26/2019 R11.2 Nausea with vomiting, unspecified Peter Lee M.D. 04/26/2019 M51.36 Other intervertebral disc degeneration, Peter Lee M.D. lumbar region 04/26/2019 M54.5 Low back pain Peter Lee M.D. 02/24/2019 F11.20 Opioid dependence, uncomplicated Peter Lee M.D. 02/24/2019 F41.0 Panic disorder [episodic paroxysmal anxiety] Peter Lee M.D. 02/24/2019 R11.2 Nausea with vomiting, unspecified Peter Lee M.D. 02/24/2019 Z23 Encounter for immunization Peter Lee M.D. 02/24/2019 Z68.25 Body mass index (BMI) 25.0-25.9, adult Peter Lee M.D. 01/22/2019 F11.20 Opioid dependence, uncomplicated Peter Lee M.D. 01/22/2019 F41.0 Panic disorder [episodic paroxysmal anxiety] Peter Lee M.D. 01/22/2019 R11.2 Nausea with vomiting, unspecified Peter Lee M.D. 12/22/2018 R11.2 Nausea with vomiting, unspecified Peter Lee M.D. 12/22/2018 F41.0 Panic disorder [episodic paroxysmal anxiety] Peter Lee M.D. 12/22/2018 F11.20 Opioid dependence, uncomplicated Peter Lee M.D. 12/22/2018 M51.36 Other intervertebral disc degeneration, Peter Lee M.D. lumbar region 12/22/2018 M54.5 Low back pain Peter Lee M.D. 12/22/2018 Z23 Encounter for immunization Peter Lee M.D. 12/22/2018 Z41.8 Encounter for other procedures for purposes Peter Lee M.D. other than remedying health state 11/18/2018 F11.20 Opioid dependence, uncomplicated Peter Lee [...] Z23 Encounter for immunization Peter Lee M.D. Plan of Treatment Future Appointment(s):06/02/2019 10:30 am - Peter Lee M.D. at Main [id number]/26/2019 - Peter Lee M.D.F11.20 Opioid dependence, uncomplicatedComments:Doing well. Continue current Tx. We discussed option of trying to cut down on his medication at somepoint, and he would like to do this down the road but doesn't feel able to now.Follow up:RTO 1 bnfrxH05.0 Panic disorder [episodic paroxysmal anxiety]R11.2 Nausea with vomiting, ybruhbeybltV76.36 Other intervertebral disc degeneration, lumbar pzsfweN09.5 Low back pain Functional Status Description No Information Available Mental Status Description No Information Available Referrals Description No Information Available
--- OUTSIDE RECORDS SUMMARY | 2019-05-10 14:37 | XMS REPORT | Continuity of Care Document ---
:1965 External Reference #:[id number] Author Name Peter Lee M.D. Address [address] [place] [address] [address] [place] [address] Care Team Providers Name Role Phone HCP given Care Team Information Costume Specialist Unavailable Verónica Harley MD - Sports Medicine Care Team Information Costume Specialist [phone] [facility] - Care Team Information Costume Specialist [phone] [facility] - Care Team Information Costume Specialist [phone] Gastroenterology Problems Active Problems Provider Date Low [...] SIG Qnty Indications Ordering Date Provider Buprenorphine 1/2 film 45units M51.36 Peter Lee, 02/24/2019 Hydrochloride/Naloxon dissolved in M.D. e Hydrochloride mouth 3x/day; 8-2mg prescriber# [id number]; rx due 04/25/19 F11.20 M54.5 Paroxetine HCL [...] 8-2mg 3x/day; suboxone M.D. 02/24/2019 Film prescriber# [id number] F11.20 M54.5 Paroxetine HCL take 1 tablet by 30tabs F41.0 Peter Lee, 12/22/2018 - 30mg mouth daily for M.D. 01/22/2019 Tablets anxiety Paroxetine HCL 1 1/2 tabs by F41.0 Unknown 12/18/2018 - 20mg mouth every day 12/22/2018 Tablets Zubsolv 1 tab by mouth 42tabs M54.5 Peter Lee, 12/15/2018 - 2.9-0.71mg three times a M.D. 12/26/2018 Tablets Sub day; take as directed; prescriber# [id number] M51.36 F11.20 Paroxetine HCL 1/2 tablet daily [...] CPT Code Status Date Vaccine Lot # [id number] Given 02/24/2019 Influenza Virus Vaccine, Quadrivalent, Split, [id number] Preservative Free 57090 Given 12/22/2018 Shingrix Zoster (Shingles) Vaccine (HZV) [id number] Recomb,Subnit,Adjuvanted 31882 Given 11/17/2017 Shingrix Zoster (Shingles) Vaccine (HZV) [id number] Recomb,Subnit,Adjuvanted 51638 Refused 11/20/2016 Influenza Virus Vaccine, Quadrivalent, Split, Preservative Free [id number] Refused 12/19/2015 Influenza Virus Vaccine, Quadrivalent, Split, [...] Result H/L Range Note CBC Auto 01/20/2019 [facility] White Blood 9.6 10^3/uL Normal 3.5- 10.8 Diff [phone] Count Red Blood Count 3.90 10^6/uL Low [...] Cells % 0.1 Comp Metabolic Panel 01/20/2019 [facility] Sodium 138 mmol/L Normal 135-145 [phone] Potassium 3.5 mmol/L Normal 3.5-5.0 Chloride 109 [...] 110.5 >60 1 CBC Auto Diff 01/19/2019 [facility] White Blood 5.6 10^3/uL Normal 3.5-10.8 [phone] Count Red Blood Count 4.29 10^6/uL Normal [...] Blood Cells % 0.0 Laboratory test 01/19/2019 [facility] Lactic Acid 2.0 mmol/L Normal 0.5-2.0 2 finding [phone] Comp Metabolic 01/19/2019 [facility] Sodium 141 mmol/L Normal 135- 145 Panel [phone] Chloride 109 mmol/L Normal 101-111 Co2 Carbon [...] U/L Normal 13-39 Laboratory test finding 01/19/2019 [facility] Lipase 124 U/L High 11.0-82.0 [phone] C Reactive Protein < 1.00 mg/L Normal <8.01 Urinalysis Profile 01/19/2019 [facility] Urine Color Yellow [phone] Urine Appearance Cloudy Urine Specific [place] 1.015 Normal 1.010-1.030 Urine pH 9.0 Normal 5-9 Urine Urobilinogen Negative Negative Urine Ketones Trace Abnormal Negative Urine Protein Negative Negative Urine Leukocytes Negative Negative Urine Blood Negative Negative Urine Nitrite Negative Negative Urine Bilirubin Negative Negative Urine Glucose Negative Negative CBC Auto Diff 12/06/2018 [facility] White Blood 4.2 10^3/uL Normal 3.5-10.8 [phone] Count Red Blood Count 4.13 10^6/uL Low [...] Cells % 0.1 Comp Metabolic Panel 12/06/2018 [facility] Sodium 139 mmol/L Normal 135-145 [phone] Potassium 3.5 mmol/L Normal 3.5-5.0 Chloride 105 [...] 95.3 >60 4 Laboratory test finding 12/06/2018 [facility] Magnesium 1.6 mg/dL Low 1.9-2.7 [phone] Lipase 77 U/L Normal 11.0-82.0 C Reactive Protein 1.05 mg/L Normal <8.01 Lactic Acid 2.1 mmol/L Critical high 0.5-2.0 5 Urinalysis Profile 12/06/2018 [facility] Urine Color Yellow [phone] Urine Appearance Cloudy Urine Specific [place] 1.024 Normal 1.010-1.030 Urine pH 5.0 Normal [...] 5 Kidney failure <15 (or dialysis) 2 [facility] Severe Sepsis and Septic Shock [...] dialysis) 5 Critical Result LACT:2.1 Called to [id number] at: 14:05:49 by:[id number] Read back by:[id number] [facility] Severe Sepsis and Septic Shock Management Bundle Measure requires all lactic acids initially measuring >2.0 mmol/L be repeated. Procedures Date Code Description Status 03/26/2018 [id number] Colonoscopy Completed Medical Devices Description No Information [...] Office Visit 12/22/2018 11:15a Main Office Peter Lee R11.2 Nausea with M.D. vomiting, unspecified F41.0 Panic disorder [episodic paroxysmal anxiety] F11.20 Opioid dependence, uncomplicated M51.36 Other intervertebral disc degeneration, lumbar region M54.5 Low back pain Z23 Encounter for immunization Z41.8 Encntr for oth proc for purpose oth [facility] Office Visit 11/18/2018 11:00a Main Office Jesus [...] am - Peter Lee M.D. at [facility]8204/26/2019 - Peter Lee M.D.F11.20 Opioid dependence, uncomplicatedComments:Doing well. Continue current Tx. We discussed option of trying to cut down on his medication at somepoint, and he would like to do this down the road but doesn't feel able to now.Follow up:RTO 1 zzhsfD76.0 Panic disorder [episodic paroxysmal anxiety]R11.2 Nausea with vomiting, fvggjcdelwvC21.36 Other intervertebral disc degeneration, lumbar gjpcnsI52.5 Low back pain Functional Status Description No Information Available Mental Status Description No Information Available Referrals Description No Information Available
[2019-05-10] MEDS ORDERED: Haloperidol INJ IV/IM* 5 MG/ML AMP ONE (15:40)
[2019-05-10] MEDS ORDERED: Haloperidol INJ IV/IM* 5 MG/ML AMP IM ONE (15:40)
[2019-05-10 16:16] LABS: ABS Lymphocytes 0.8 10^3/ul (1.0-4.8); ABS Monocytes 0.4 10^3/ul (0-0.8); ABS Neutrophils 9.1 10^3/ul (1.5-7.7); Eosinophil % 0.2 %; Hematocrit 38 % (42-52); Hemoglobin 12.9 g/dL (14.0-18.0); Lymphocyte % 7.8 %; Mean Corpuscular HGB Conc 35 g/dL (31-36); Mean Corpuscular Hemoglobin 31 pg (27-31); Mean Corpuscular Volume 90 fL (80-94); Platelet Count 285 10^3/uL (150-450); Red Blood Count 4.15 10^6 /uL (4.18-5.48); Red Cell Distribution Width 15 % (10-15); White Blood Count 10.3 10^3/uL (3.5-10.8)
--- NOTE | 2019-05-10 16:24 | ED ---
GI/ HPI - HPI Summary HPI Summary: 53 year old M arriving via private car complains of diarrhea and vomiting that started at today 05/10/2019 1100. No constipation. Symptoms rated 10/10 in severity. Symptoms aggravated by nothing. Symptoms alleviated by nothing. Medications reviewed. Patient states he had similar episode in January 2019. He is requesting [employer] which he reports works. Hx marijuana use Denies current abdominal pain, CP or fevers. - History of Current Complaint Chief Complaint: EDNauseaVomitDiarrh Time Seen by Provider: 05/10/19 16:15 Stated Complaint: VOMITING PER PT Hx Obtained From: Patient Onset/Duration: Started Hours Ago - 5, Still Present Timing: Constant, Lasting Hours - 5 Severity: Severe Current Severity: Severe Pain Intensity: 10 Aggravating Factor(s): Nothing Alleviating Factor(s): Nothing - Additional Pertinent History Primary Care Physician: MARY ANNE - Allergy/Home Medications Allergies/Adverse Reactions: Allergies Allergy/AdvReac Type Severity Reaction Status Date / Time No Known Allergies Allergy Verified 12/06/18 12:53 PMH/Surg Hx/FS Hx/Imm Hx Endocrine/Hematology History: Reports: Hx Anemia Denies: Hx Diabetes Cardiovascular History: Denies: Hx Congestive Heart Failure, Hx Hypertension, Hx Pacemaker/ICD Respiratory History: Denies: Hx Asthma GI History: Reports: Hx Gall Bladder Disease, Hx Gastroesophageal Reflux Disease , Other GI Disorders - pancreatitis History: Denies: Hx Renal Disease Musculoskeletal History: Reports: Hx Back Problems - chronic low back pain, Hx Orthopedic Injury - left shoulder injury, Other Musculoskeletal History - ACL injury on R knee Sensory History: Reports: Hx Contacts or Glasses - for reading Denies: Hx Hearing Aid Opthamlomology History: Reports: Hx Contacts or Glasses - for reading Neurological History: Denies: Hx Headaches Psychiatric History: Reports: Hx Anxiety, Hx Depression Denies: Hx Panic Disorder - Surgical History Surgery Procedure, Year, and Place: ACL REPAIR RT KNEE - Immunization History Date of Tetanus Vaccine: 09/15/2013 Infectious Disease History: No Infectious Disease History: Denies: Traveled Outside the [place] in Last 30 Days - Family History Known Family History: Negative: Hypertension - Social History Alcohol Use: None Hx Substance Use: Yes Substance Use Type: Reports: Marijuana Substance Use Comment - Amount & Last Used: oxycontin 10mg bid; suboxone 4mg TID Hx Tobacco Use: Yes Smoking Status (MU): Former Smoker Review of Systems Negative: Fever Gastrointestinal: Negative - constipation Positive: Vomiting, Diarrhea All Other Systems Reviewed And Are Negative: Yes Physical Exam - Summary Physical Exam Summary: Constitutional: Patient is sleeping. (-) Distressed Skin: Warm, Dry HENT: Normocephalic; Atraumatic; Dry mucous membranes Eyes: Conjunctiva normal Neck: Musculoskeletal ROM normal neck. (-) JVD, (-) Stridor, (-) Nuchal rigidity Cardio: Rhythm regular, tachycardic, Heart sounds normal; Intact distal pulses; Radial pulses are 2+ and symmetric. (-) Murmur Pulmonary/Chest wall: Effort normal. (-) Respiratory distress, (-) Wheezes, (-) Rales Abd: Soft, (-) tenderness, (-) Distension, (-) Guarding, (-) Rebound Musculoskeletal: (-) Edema Lymph: (-) Cervical adenopathy Neuro: Alert, Oriented x3 Psych: Patient is intermittently agitated and throwing himself on chairs Triage Information Reviewed: Yes Vital Signs On Initial Exam: Initial Vitals Temp Pulse Resp BP Pulse Ox 96.9 F 80 19 90/71 99 05/10/19 12:30 05/10/19 12:30 05/10/19 12:30 05/10/19 12:30 05/10/19 12:30 Vital Signs Reviewed: Yes Procedures - Sedation Patient Received Moderate/Deep Sedation with Procedure: No Diagnostics - Vital Signs Vital Signs Temp Pulse Resp BP Pulse Ox 05/10/19 15:45 95.2 F 131 20 158/93 98 05/10/19 13:39 98.1 F 61 19 140/81 100 05/10/19 12:30 96.9 F 80 19 90/71 99 - Laboratory Lab Results: Lab Results 05/10/19 Range/Units 16:07 WBC 10.3 (3.5-10.8) 10^3/uL RBC 4.15 L (4.18-5.48) 10^6 /uL Hgb 12.9 L (14.0-18.0) g/dL Hct 38 L (42-52) % MCV 90 (80-94) fL MCH 31 (27-31) pg MCHC 35 (31-36) g/dL RDW 15 (10-15) % Plt Count 285 (150-450) 10^3/uL MPV 9.0 (7.4-10.4) fL Neut % (Auto) 88.0 % Lymph % (Auto) 7.8 % [place] % (Auto) 3.8 % Eos % (Auto) 0.2 % Baso % (Auto) 0.2 % Absolute Neuts (auto) 9.1 H (1.5-7.7) 10^3/ul Absolute Lymphs (auto) 0.8 L (1.0-4.8) 10^3/ul Absolute Monos (auto) 0.4 (0-0.8) 10^3/ul Absolute Eos (auto) 0.0 (0-0.6) 10^3/ul Absolute Basos (auto) 0.0 (0-0.2) 10^3/ul Absolute Nucleated RBC 0.0 10^3/ul Nucleated RBC % 0.0 Result Diagrams: 05/11/19 04:35 05/11/19 04:33 Lab Statement: Any lab studies that have been ordered have been reviewed, and results considered in the medical decision making process. - EKG 1743 Cardiac Rate: Bradycardia - 51 BPM EKG Rhythm: Sinus Bradycardia Summary of EKG Findings: An EKG at 1743 reveals normal sinus bradycardia 51 BPM. T wave inversions in lead 3. No STEMI. No acute changes. ED physician has reviewed and interpreted this EKG. Re-Evaluation - Re-Evaluation First Eval Re-Evaluation Time: 16:59 Comment: magnesium 1.6. will order magnesium Second Eval Re-Evaluation Time: 18:46 Change: Improved - patient is feeling better GIGU Course/Dx - Course Course Of Treatment: 53 y/o male w hx cyclic vomiting p/w multiple episodes of emesis. - patient noted to be throwing himself around in triage. I went to assess him, well appearing, abd soft. Given compazine PO which he vomited. Then given haldol IM (concern for marijuana hyperemesis) which helped. Labwork obtained shows hypomagnesemia, hypoK. Both repleted. Given IVF. Given additional dose of compazine IVF and GI cocktail as per patient request. Signed out pending re eval for vomiting after IVF and mag. - Diagnoses Provider Diagnoses: Cyclical vomiting, Hypomagnesemia Discharge ED - Sign-Out/Discharge Documenting (check all that apply): Sign-Out Patient Signing out patient TO: Mike Jay - awaiting magnesium sulfate and pending disposition - Discharge Plan Condition: Stable Disposition: ADMITTED TO [facility] - Billing Disposition and Condition Condition: STABLE Disposition: Admitted to [facility] - Attestation Statements Document Initiated by Scribe: Yes Documenting Scribe: Veronika Wall Provider For Whom Del is Documenting (Include Credential): Alice Pal MD Scribe Attestation: Veronika Leiva, scribed for Alice Pal MD on 05/11/19 at 1029. Scribe Documentation Reviewed: Yes Provider Attestation: The documentation as recorded by the Veronika hu accurately reflects the service I personally performed and the decisions made by Alice keller MD Status of Scribe Document: Viewed
[2019-05-10 16:42] LABS: Albumin 4.5 g/dL (3.2-5.2); Albumin/Globulin Ratio 1.9 (1-3); BUN/Creatinine Ratio 17.8 (8-20); Calcium 9.5 mg/dL (8.6-10.3); EGFR African American 107.6 (>60); Globulin 2.4 g/dL (2-4); Magnesium 1.6 mg/dL (1.9-2.7); Potassium 3.3 mmol/L (3.5-5.0); Total Bilirubin 0.7 mg/dL (0.2-1.0); Total Protein 6.9 g/dL (6.4-8.9)
[2019-05-10] MEDS ORDERED: Potassium Chlor TAB* 20 MEQ TAB.ER PO ONE (16:58)
[2019-05-10] MEDS ORDERED: Magnesium Sulf 4 GM/100 ML IV* 4,000 MG/100 ML BAG IVPB ONE (16:58)
[2019-05-10] MEDS ORDERED: NS 0.9% 1000 ML** 1,000 ML IV ONE (17:14)
[2019-05-10] MEDS ORDERED: PROCHLORPERAZINE INJ 5 MG/ML 2 ML VIAL IV ONE (18:04)
[2019-05-10] MEDS ORDERED: Acetaminophen TAB* 325 MG PO ONE (18:04)
[2019-05-10] MEDS ORDERED: diPHENhydraMINE IV* 50 MG/ML 1 ml VIAL (BENADRYL) SLOW PUSH ONE (18:26)
[2019-05-10] MEDS ORDERED: Al Hydrox/Mg Hydrox/Simet LIQ* 30 ML UDC PO ONE (18:29)
[2019-05-10] MEDS ORDERED: Lidocaine 2% VISCOUS* 15 ML UDC PO ONE (18:29)
--- NOTE | 2019-05-10 19:09 | ED ---
Progress - Progress Note Progress Note: This pt is a sign out to Dr. Thompson from Dr. Pal at 1900 05/10/2019 pending a magnesium lab and disposition. Re-Evaluation - Re-Evaluation First Eval Re-Evaluation Time: 16:59 Comment: magnesium 1.6. will order magnesium Second Eval Re-Evaluation Time: 18:46 Change: Improved - patient is feeling better Course/Dx - Course Course Of Treatment: This pt is a sign out to Dr. Thompson from Dr. Pal at 1900 05/10/2019 pending a magnesium medication and disposition. Dr. Espinal, Hospitalist, was consulted at 2300 due to the pt's inability to stop vomiting and agreed to admit the pt for further observation. He was Dx with cyclical vomiting and hypomagnesemia. - Diagnoses Provider Diagnoses: Cyclical vomiting, Hypomagnesemia - Provider Notifications Discussed Care Of Patient With: Ramona Espinal Time Discussed With Above Provider: 23:00 Instructed by Provider To: Admit As Inpatient Admit/Transition Orders Completed By ED Provider: Yes Discharge ED - Sign-Out/Discharge Documenting (check all that apply): Patient Departure - admitted - Discharge Plan Condition: Stable Disposition: ADMITTED TO [facility] - Billing Disposition and Condition Condition: STABLE Disposition: Admitted to [facility] - Attestation Statements Document Initiated by Del: Yes Documenting Scribe: Teja Correa Provider For Whom Del is Documenting (Include Credential): MD Dragan Myersibdarron Attestation: Teja Leiva, scribed for Mike Thompson MD on 05/12/19 at 0532. Scribe Documentation Reviewed: Yes Provider Attestation: The documentation as recorded by the Teja hu accurately reflects the service I personally performed and the decisions made by me, Mike Thompson MD Status of Scribe Document: Viewed
[2019-05-10] MEDS ORDERED: Haloperidol INJ IV/IM* 5 MG/ML AMP IV SLOW PU ONE (20:16)
[2019-05-10] MEDS ORDERED: LORazepam TAB(*) 1 MG PO ONE (23:17)
[2019-05-10] MEDS ORDERED: NS 0.9% 1000 ML** 1,000 ML IV SCH (23:45)
[2019-05-10] MEDS ORDERED: Ondansetron INJ* 2 MG/ML VIAL IV PRN (23:59)
[2019-05-10] MEDS ORDERED: Trimethobenzamide IM* 100 MG/ML 2 ml VIAL IM ONE (23:59)
[2019-05-11 00:36] LABS: INR 0.98 (0.82-1.09)
[2019-05-11] MEDS ORDERED: KCL 10 MEQ/50 ML IVPREMIX* 10 MEQ/50 ML BAG IV SCH (01:00)
--- NOTE | 2019-05-11 02:25 | HP ---
CC: Dr. Lee * HISTORY AND PHYSICAL: DATE OF ADMISSION: 05/10/19 PRIMARY CARE PROVIDER: Dr. Lee. ATTENDING PHYSICIAN WHILE IN THE HOSPITAL: Dr. Ramona Espinal * (report dictated by Mau Birch NP) CHIEF COMPLAINT: 1. Nausea. 2. Vomiting. HISTORY OF PRESENT ILLNESS: Mr. Rod is a 53-year-old male patient who carries a history of cyclic vomiting syndrome secondary to presumed marijuana use. He is coming into the hospital today because yesterday he did smoke marijuana, and since this morning, he woke up, was feeling nauseated in his typical fashion, also vomiting, unable to keep anything down. Denied having any abdominal pain, but he unfortunately could not keep anything down, could not take his meds. He was concerned because of the nausea and vomiting. He came into the hospital. He was evaluated in the ER. Initial labs showed that he was mildly hypokalemic and had a low magnesium. The patient was given several different antiemetics, but despite this continued to have nausea and vomiting. Because of this, we were asked to evaluate for admission. He states that he is not currently in any pain, but he just feels nauseous. He again, despite the ERs best effort, was unable to control his nausea. He denies having any recent fevers. No chest pain or shortness of breath was reported. PAST MEDICAL HISTORY: Significant for: 1. Cyclic vomiting syndrome. 2. GERD. 3. Iron-deficiency anemia. PAST SURGICAL HISTORY: He has had a right ACL repair. MEDICATIONS: His home meds according to the list that he provided includes: 1. Atarax 25 to 50 mg 4 times a day as needed. 2. Paxil 20 mg daily. 3. Prilosec 40 mg daily. 4. Neurontin 300 mg daily. 5. Vitamin D3 5000 units p.o. daily. 6. Suboxone half a film sublingual t.i.d. 7. Compazine 10 mg p.o. every 8 hours as needed. ALLERGIES TO MEDICATIONS: Include no known drug allergies. FAMILY HISTORY: He is adopted. SOCIAL HISTORY: He does not drink. He does not smoke tobacco. He does smoke marijuana 3 times a week. He is not . Surrogate decision maker is his mother. REVIEW OF SYSTEMS: There is no documented fever. He denies having any significant weight change. There is no double vision. He denies having any ear discharge. There is no rhinorrhea, no sore throat, no thyroid enlargement. Denied having any chest pain. There is no orthopnea. There is no nocturnal dyspnea. He does admit to having nausea and vomiting. No abdominal pain, no dysuria, no frequency. There was no seizure, no loss of consciousness, no pruritus, and no skin ulcerations. Review of 14 systems completed, all others negative. PHYSICAL EXAMINATION GENERAL: At this time, Mr. Rod is a 53-year-old male patient. He is sitting in the ED stretcher. He does not appear to be in any acute distress. VITAL SIGNS: Blood pressure 114/57, pulse 71, respirations 18, O2 saturation 97 %, temperature 99.6. HEENT: Head atraumatic and normocephalic. Eyes: EOMs intact. Sclerae anicteric and not pale. Throat: Oral mucosa appears to be moist. No oropharyngeal erythema. NECK: Supple. LUNGS: Clear to auscultation bilaterally. No wheezes, rales, or rhonchi. HEART: Sounds S1 and S2. He had a regular rate and rhythm. No murmurs, rubs, or gallops. ABDOMEN: Soft, flat, nontender. Bowel sounds were hyperactive. EXTREMITIES: Pulses were 2+ throughout. He had no peripheral edema. He was moving all 4 extremities with 5/5 strength. NEUROLOGIC: He is awake. He is alert, oriented x3. Speech clear. Tongue midline. Gas Burner Operator are equal. No gross focal deficits. SKIN: Grossly intact. DIAGNOSTIC STUDIES/LAB DATA: WBC 10.3, RBC of 4.15, hemoglobin 12.9, hematocrit 38, platelet count 285. Sodium 140, potassium 3.3, chloride of 107, bicarb 21, BUN 16, creatinine 0.90, glucose 129, calcium 9.5, mag 1.6, these were replaced. Total bili 0.7, AST 36, ALT 32, alk phos 30. Albumin 4.5. Old medical records were reviewed. He had a CT of the abdomen and pelvis back in January. Impression: No CT evidence of pancreatitis or peripancreatic fluid collections. No other acute process. No significant interval change. Moderate . ASSESSMENT AND PLAN: Mr. Rod is a 53-year-old male patient coming into the ED today with complaints of nausea and vomiting in the setting of recent marijuana use. He will be admitted under observation status for: 1. Nausea and vomiting. I suspect this is a recurrence of his cyclic vomiting syndrome. My plan will be to treat him with supportive care going forward. Because of the imaging in January, I am going to hold off on imaging. He is not tender on exam. He is not having any pain. My plan at this point would be to treat him with p.r.n. Compazine, Zofran, and I will give him a dose of Tigan in the ER. I will hydrate him. We will support his electrolytes, they will be replaced. We will repeat them in the morning and I will check a lipase as well and will continue to follow. Continue with supportive care. 2. Gastroesophageal reflux disease. Continue PPI therapy. 3. Anemia. H and H are stable, we will continue to monitor. 4. DVT prophylaxis. He is at moderate risk. I will place him on heparin subcu. 5. Code status. Full code. 6. Fluids, electrolytes, and nutrition. He will be n.p.o. except for ice chips and I have ordered normal saline at 125 an hour. TIME SPENT: Time spent on the admission was 60 minutes, greater than half the time was spent [id number] with the patient obtaining my history and physical, other half the time spent going over the plan of care with the patient, implementing the plan of care. I did discuss the plan of care with my attending , Dr. Espinal; she is in agreement. MAU BIRCH, ESCOBAR [id number]/[facility] #: [id number] JAIRO
[2019-05-11 04:46] LABS: ABS Lymphocytes 0.6 10^3/ul (1.0-4.8); ABS Monocytes 0.2 10^3/ul (0-0.8); ABS Neutrophils 7.2 10^3/ul (1.5-7.7); Hematocrit 38 % (42-52); Lymphocyte % 7.8 %; Mean Corpuscular HGB Conc 34 g/dL (31-36); Mean Corpuscular Hemoglobin 31 pg (27-31); Mean Corpuscular Volume 91 fL (80-94); Mean Platelet Volume 9.1 fL (7.4-10.4); Nucleated Red Blood Cells % 0.1; Platelet Count 280 10^3/uL (150-450); Red Blood Count 4.22 10^6 /uL (4.18-5.48); Red Cell Distribution Width 15 % (10-15); White Blood Count 8.1 10^3/uL (3.5-10.8)
[2019-05-11] MEDS: Heparin VIAL(*) 5000 UNITS/ML VIAL (FIVE THOUSAND) SUBCUT SCH ×3 (05:42→21:43)
[2019-05-11] MEDS: PROCHLORPERAZINE INJ 5 MG/ML 2 ML VIAL IV PRN ×3 (06:15→18:26)
[2019-05-11] MEDS: Pantoprazole IV* 40 MG IV SCH (07:57)
[2019-05-11] MEDS: Ondansetron INJ* 2 MG/ML VIAL IV PRN ×2 (07:57→20:09)
[2019-05-11] MEDS: Buprenorp/Nalox 4-1 MG FILM SL FILM SCH ×3 (08:06→21:02)
[2019-05-11 08:48] LABS: Calcium 9.1 mg/dL (8.6-10.3); Potassium 4.3 mmol/L (3.5-5.0)
[2019-05-11 08:54] LABS: BUN/Creatinine Ratio 13.3 (8-20); EGFR African American 118.2 (>60); EGFR Non-African American 97.7 (>60)
[2019-05-11] MEDS ORDERED: NS 0.9% 1000 ML** 1,000 ML IV SCH (11:33)
--- NOTE | 2019-05-11 11:39 | PN ---
Subjective Date of Service: 05/11/19 Interval History: Patient states he stopped vomiting about 10 AM today. Objective Active Medications: Acetaminophen (Tylenol 650 Mg Supp) 650 mg MI Q6H PRN PRN Reason: PAIN - MILD Buprenorphine/Naloxone (Suboxone 4 Mg-1 Mg Sl Film) 1 each SL FILM TID [facility] Last Admin: 05/11/19 08:06 Dose: 1 each Heparin Sodium (Porcine) (Heparin Vial(*)) 5,000 units SUBCUT Q8HR [facility] Last Admin: 05/11/19 05:42 Dose: 5,000 units Sodium Chloride (Ns 0.9% 1000 Ml) 1,000 mls @ 75 mls/hr IV PER RATE [facility] Stop: 05/12/19 00:52 Ondansetron HCl (Zofran Inj*) 4 mg IV Q4H PRN PRN Reason: NAUSEA Last Admin: 05/11/19 07:57 Dose: 4 mg Pantoprazole Sodium (Protonix Iv*) 40 mg IV DAILY [facility] Last Admin: 05/11/19 07:57 Dose: 40 mg Prochlorperazine Edisylate (Compazine Inj*) 10 mg IV Q6H PRN PRN Reason: NAUSEA/VOMITING Last Admin: 05/11/19 06:15 Dose: 10 mg Vital Signs - 8 hr 05/11/19 05/11/19 07:44 08:00 Temperature 98.8 F Pulse Rate 64 Respiratory 18 18 Rate Blood Pressure 134/61 (mmHg) O2 Sat by Pulse 98 Oximetry Oxygen Devices in Use Now: None Appearance: Alert, supine in bed. In fair spirits, looks a little anxious. Eyes: No Scleral Icterus Abdominal: - - Some voluntary guarding, nl BS. Not distended. Extremities: No Edema, No Clubbing, Cyanosis, - Skin: No Rash or Ulcers, No Nodules or Sclerosis, - Neurological: Alert and Oriented x 3, NL Sensation Result Diagrams: 05/11/19 04:35 05/11/19 04:33 Additional Lab and Data: Lab Results 05/10/19 Range/Units 16:07 WBC 10.3 (3.5-10.8) 10^3/uL RBC 4.15 L (4.18-5.48) 10^6 /uL Hgb 12.9 L (14.0-18.0) g/dL Hct 38 L (42-52) % MCV 90 (80-94) fL MCH 31 (27-31) pg MCHC 35 (31-36) g/dL RDW 15 (10-15) % Plt Count 285 (150-450) 10^3/uL MPV 9.0 (7.4-10.4) fL Neut % (Auto) 88.0 % Lymph % (Auto) 7.8 % [place] % (Auto) 3.8 % Eos % (Auto) 0.2 % Baso % (Auto) 0.2 % Absolute Neuts (auto) 9.1 H (1.5-7.7) 10^3/ul Absolute Lymphs (auto) 0.8 L (1.0-4.8) 10^3/ul Absolute Monos (auto) 0.4 (0-0.8) 10^3/ul Absolute Eos (auto) 0.0 (0-0.6) 10^3/ul Absolute Basos (auto) 0.0 (0-0.2) 10^3/ul Absolute Nucleated RBC 0.0 10^3/ul Nucleated RBC % 0.0 Assess/Plan/Problems-Billing Assessment: - Patient Problems (1) Cyclical vomiting Current Visit: Yes Status: Acute Comment: Pt states he has been in the ED and/or been admitted 14 times for this during the past year. He may be in the recovery phase as of 05/11/19. Advance to clear liquids, decrease IV fluids. (2) Opioid use disorder Current Visit: No Status: Acute Code(s): F11.99 - OPIOID USE, UNSP WITH UNSPECIFIED OPIOID-INDUCED DISORDER SNOMED Code(s): 8857938 Comment: Continue Suboxone (3) GERD (gastroesophageal reflux disease) Current Visit: No Status: Acute Code(s): K21.9 - GASTRO-ESOPHAGEAL REFLUX DISEASE WITHOUT ESOPHAGITIS SNOMED Code(s): 597557029 Comment: S/P H Pylori tx, continue on PPI
[2019-05-11] MEDS ORDERED: Acetaminophen TAB* 325 MG PO PRN (16:40)
[2019-05-11] MEDS ORDERED: Al Hydrox/Mg Hydrox/Simet LIQ* 30 ML UDC PO PRN (20:10)
[2019-05-12] MEDS: Heparin VIAL(*) 5000 UNITS/ML VIAL (FIVE THOUSAND) SUBCUT SCH (05:35)
[2019-05-12 07:22] VITALS: BP 110/68
[2019-05-12] MEDS: Pantoprazole IV* 40 MG IV SCH (08:12)
[2019-05-12] MEDS: Buprenorp/Nalox 4-1 MG FILM SL FILM SCH (08:20)
[2019-05-12] MEDS: PROCHLORPERAZINE INJ 5 MG/ML 2 ML VIAL IV PRN (08:28)
--- NOTE | 2019-05-12 12:22 | DS ---
CC: Dr. Lee * DISCHARGE SUMMARY: DATE OF ADMISSION: 05/10/19 DATE OF DISCHARGE: 05/12/19 HISTORY OF PRESENT ILLNESS/HOSPITAL COURSE: This 53-year-old man presented with vomiting. He had nausea. No abdominal pain. He has a history of cyclic vomiting syndrome, possibly related to excessive marijuana use. He had smoked marijuana the day before admission. The patient was not improved in the emergency room after antiemetics. He was admitted to our regular floor, given intravenous fluids, and antiemetics. He gradually improved. He was tolerating clear liquids quite well and he was hungry. At the time of discharge, no abdominal pain. FINAL DIAGNOSES: 1. Cyclic vomiting syndrome. 2. Gastroesophageal reflux disease. DISCHARGE MEDICATIONS: 1. Prochlorperazine 10 mg every 8 hours p.r.n. 2. Gabapentin 300 mg t.i.d. 3. Hydroxyzine 25 to 50 mg q.i.d. p.r.n. 4. Omeprazole 40 mg daily. 5. Paroxetine 20 mg daily. 6. Buprenorphine and naloxone 8/2 film, half a film t.i.d. 7. Vitamin D3 at 5000 units daily. CONDITION ON DISCHARGE: Improved. DISPOSITION ON DISCHARGE: Discharged home. [id number]/[facility] #: [id number] MTDD
== END 2019-05-12 10:39 | disposition home or self-care (01) ==
LOC: ED 12:19 → SSU 23:56
PROVIDERS: ADMIT Nurse Practitioner Family; ATTEND Internal Medicine
DX: R11.15 Cyclical vomiting syndrome unrelated to migraine (principal); K21.9 Gastro-esophageal reflux disease without esophagitis; Z79.899 Other long term (current) drug therapy; F12.10 Cannabis abuse, uncomplicated; F11.99 Opioid use, unspecified with unspecified opioid-induced disorder; D50.9 Iron deficiency anemia, unspecified; Z87.891 Personal history of nicotine dependence; G89.29 Other chronic pain; M54.9 Dorsalgia, unspecified; F41.9 Anxiety disorder, unspecified; F32.9 Major depressive disorder, single episode, unspecified; E83.42 Hypomagnesemia; R94.31 Abnormal electrocardiogram [ECG] [EKG]
CPT/HCPCS: 36415; 80048; 80053; 83690; 83735; 85025; 85610; 93005; 96365; 96366; 96372; 96375; 96376; 99285; A9270-GY; G0378; J0780; J1200; J1630; J1644; J2405; J3250; J3475; Q0164

== ENCOUNTER 2021-06-21 11:53 | Observation (INO) ==
[2021-06-21] MEDS ORDERED: Prochlorperazine 5 mg/ml 2 ml VIAL (10 mg) IM ONE (13:24)
[2021-06-21] MEDS ORDERED: Prochlorperazine 5 mg/ml 2 ml VIAL (10 mg) ONE (13:25)
[2021-06-21] MEDS ORDERED: Droperidol 5 MG/2 ML 2 ML VIAL IM ONE (13:32)
[2021-06-21] MEDS ORDERED: NS 0.9% 1000 ml BAG 1,000 ML IV ONE (14:06)
[2021-06-21 14:43] LABS: ABS Lymphocytes 0.6 10^3/ul (1.0-4.8); ABS Monocytes 0.2 10^3/ul (0-0.8); ABS Neutrophils 9.4 10^3/ul (1.5-7.7); Eosinophil % 0.2 %; Hematocrit 48 % (42-52); Hemoglobin 16.3 g/dL (14.0-18.0); Lymphocyte % 5.5 %; Mean Corpuscular HGB Conc 34 g/dL (31-36); Mean Corpuscular Hemoglobin 32 pg (27-31); Mean Corpuscular Volume 94 fL (80-94); Mean Platelet Volume 9.2 fL (7.4-10.4); Platelet Count 307 10^3/uL (150-450); Red Blood Count 5.09 10^6 /uL (4.18-5.48); Red Cell Distribution Width 14 % (10-15); White Blood Count 10.2 10^3/uL (3.5-10.8)
[2021-06-21] MEDS ORDERED: Droperidol 5 MG/2 ML 2 ML VIAL IV ONE ×2 (15:00→17:39)
[2021-06-21] MEDS ORDERED: Promethazine INJ(RESTRICTED) 25 MG/ML 1 ml VIAL IV ONE (15:24)
[2021-06-21 15:34] LABS: Albumin/Globulin Ratio 2.2 (1-3); Calcium 10.2 mg/dL (8.6-10.3); Globulin 2.3 g/dL (2-4); Total Bilirubin 0.8 mg/dL (0.2-1.0); Total Protein 7.3 g/dL (6.4-8.9); eGFR CKD-EPI 76.9 (>60)
[2021-06-21] MEDS ORDERED: Lorazepam PYXIS KEY PRN (15:48)
[2021-06-21] MEDS ORDERED: Metoclopramide 5 MG/ML VIAL (10 mg) IV SLOW PU ONE (15:48)
[2021-06-21] MEDS ORDERED: LORazepam 2 mg VIAL 1 ml IV PUSH ONE (15:48)
[2021-06-21 16:26] LABS: High Sensitivity Troponin 1 Hr 3 pg/mL (<20)
[2021-06-21] MEDS ORDERED: Al Hydrox/Mg Hydrox/Simet LIQ 30 ML UDC PO ONE (17:38)
[2021-06-21] MEDS ORDERED: Lactated Ringers 1000 ml BAG 1,000 ML IV ONE (20:09)
[2021-06-21] MEDS ORDERED: Prochlorperazine 5 mg/ml 2 ml VIAL (10 mg) IV PRN (20:10)
[2021-06-21] MEDS ORDERED: Famotidine IV 10 MG/ML 2 ml VIAL (20 mg) IV SLOW PU ONE (20:12)
[2021-06-21] MEDS ORDERED: Scopolamine 1 mg/72hr PATCH TRANSDERM SCH (21:00)
[2021-06-21 21:02] LABS: Urine Appearance Clear; Urine Bilirubin Negative (Negative); Urine Blood Negative (Negative); Urine Color Yellow; Urine Glucose Negative (Negative); Urine Ketones 1+ (Negative); Urine Nitrite Negative (Negative); Urine Protein 1+(30 mg/dL) (Negative); Urine Specific Gravity 1.025 (1.002-1.030); Urine Urobilinogen Negative (Negative)
[2021-06-21 21:11] LABS: Urine Bacteria Absent (Absent); Urine Red Blood Cell Absent (Absent); Urine White Blood Cell Absent (Absent)
[2021-06-21] MEDS: Buprenorp/Nalox 4-1 MG FILM SL FILM SCH (23:59)
[2021-06-22] MEDS: Ondansetron 4 mg VIAL 2 MG/ML 2 ml VIAL IV PRN ×2 (05:16→10:26)
[2021-06-22 08:25] LABS: ABS Lymphocytes 1.1 10^3/ul (1.0-4.8); ABS Monocytes 0.5 10^3/ul (0-0.8); Hematocrit 44 % (42-52); Hemoglobin 15.1 g/dL (14.0-18.0); Mean Corpuscular HGB Conc 35 g/dL (31-36); Mean Corpuscular Hemoglobin 32 pg (27-31); Mean Corpuscular Volume 93 fL (80-94); Mean Platelet Volume 9.5 fL (7.4-10.4); Nucleated Red Blood Cells % 0.1; Platelet Count 297 10^3/uL (150-450); Red Blood Count 4.74 10^6 /uL (4.18-5.48); Red Cell Distribution Width 14 % (10-15); White Blood Count 7.6 10^3/uL (3.5-10.8)
[2021-06-22] MEDS: Buprenorp/Nalox 4-1 MG FILM SL FILM SCH ×2 (08:48→14:52)
[2021-06-22 08:59] LABS: Albumin 4.5 g/dL (3.2-5.2); Calcium 9.3 mg/dL (8.6-10.3); Globulin 2.3 g/dL (2-4); Potassium 4.4 mmol/L (3.5-5.0); Total Protein 6.8 g/dL (6.4-8.9); eGFR CKD-EPI 80.3 (>60)
[2021-06-22] MEDS ORDERED: Magnesium Hydroxide LIQ 30 ML UDC PO SCH (09:00)
[2021-06-22 11:22] VITALS: BP 121/62
== END 2021-06-22 15:20 | disposition home or self-care (01) ==
LOC: EDHOLD 11:53 → ED 11:53 → SUATTDRO 20:15 → MED 23:27
PROVIDERS: ADMIT Student in an Organized Health Care Education/Training Program; ATTEND Internal Medicine